=== PATIENT | female | born 1950 | race Two or more races ===

== ENCOUNTER 2024-05-21 10:12 | Outpatient (AMB) | payer MEDICARE, MEDICAID, SELFPAY ==
--- NOTE | 2024-05-21 10:23 | MHC.PC.OV ---
Vital Signs 05/21/24 10:30 Height 5 ft 4.57 in Weight 158 lb 8 oz BMI 26.7 BP 116/62 Blood Pressure Location Lt brachial Position Sitting Pulse 65 Pulse Source Pulse Oximeter Pulse Oximetry (%) 99 Oxygen Delivery Method Room Air Intake Visit Reasons: establish care Hand Box Coverer Required: No Accompanied by: Self / Same As Patient Allergies No Known Allergies Allergy (Verified 05/21/24 10:49) Medication List - Last Reconciled 05/21/24 by Alejo Singh MD amlodipine 5 mg PO DAILY amoxicillin 2,000 mg PO ONCE chlorhexidine gluconate 0.12% 15 mL PO BID cholecalciferol (vitamin D3) 1,250 mcg PO QWEEK clobetasol 0.05% 1 appl topical DAILY cyanocobalamin (vitamin B-12) 1,000 mcg PO DAILY diclofenac sodium 1% 2 grams topical BID PRN duloxetine 60 mg PO DAILY estradiol 10 mcg vaginal 2XW hydrochlorothiazide 50 mg PO DAILY ibuprofen 800 mg PO TID PRN ketoconazole 2% 1 appl topical 3XW linaclotide (Linzess) 145 mcg PO QAM methocarbamol 500 mg PO DAILY PRN olmesartan 20 mg PO DAILY potassium chloride ER 20 mEq PO DAILY progesterone micronized 200 mg PO BEDTIME rosuvastatin 20 mg PO BEDTIME trazodone 100 mg PO BEDTIME PRN Tobacco use date assessed: 05/21/24 Fall risk assessment: No Falls in past year Last assessed Fall Risk: 05/21/24 Dental Screening Dental Screen Date: 05/21/24 Did you have a dental visit in the last 12 months?: Yes Did you have a dental problem in the last 6 months where you did not have access to dental care?: No Was dental information given to patient?: Patient has dentist HPI establish care HPI Details Patient comes in today to establish care - is a new patient to the practice Patient states that she moved here to [facility] from [place] about 3 months ago States that she feels okay She denies any headaches or dizziness Denies any chest pains, no SOB No nausea/vomiting, no abdominal pain No change in bowel habits noted She is currently requesting for some specialty referrals for her health issues States that she has been seeing cardiology once a year when she was in [place] and would like to start seeing one here locally - thinks that she has a heart murmur She also reports (+) Hx of thyroid nodules and wants to follow up with a thyroid specialist here regularly Recalls being advised that she has some benign brain tumors that needs continuing surveillance Thinks she also needs to see neurology due to having CVA twice in the past few years - states that her symptoms were mostly eye manifestations (?) and she does not have any residual neurologic deficits [facility] Medical History (Updated 05/21/24 @ 12:50 by Alejo Singh MD) Lumbar degenerative disc disease Overweight (BMI 25.0-29.9) Cardiac murmur Vitamin D deficiency Osteoarthritis Insomnia Constipation Multinodular thyroid Pure hypercholesterolemia Essential hypertension Surgical History (Updated 05/21/24 @ 11:01 by Alejo Singh MD) History of carpal tunnel release of both wrists History of arthroplasty of right shoulder Hx of total knee replacement Family History (Updated 05/21/24 @ 10:38 by KACI Rodriguez) Other Heart disease Hypertension Skin cancer Social History Housing: Other (living in sisters house currently ) Patient Tobacco Use Status: Former Tobacco user e-Cigarette/Vaping Use: Never Used service: No Current occupational status: retired Current occupational exposures/hazards: No Cognitive needs: No Hearing needs: No Vision needs: No Questionnaire PHQ-9 Over the last 2 weeks, how often have you been bothered by any of the following problems? 1. Little interest or pleasure in doing things: not at all 2. Feeling down, depressed, or hopeless: not at all 3. Trouble falling or staying asleep, or sleeping too much: not at all 4. Feeling tired or having little energy: not at all 5. Poor appetite or overeating: not at all 6. Feeling bad about yourself - or that you are a failure or have let yourself or your family down: not at all 7. Trouble concentrating on things, such as reading the newspaper or watching television: not at all 8. Moving or speaking so slowly that other people could have noticed. Or the opposite - being so fidgety or restless that you have been moving around a lot more than usual: not at all 9. Thoughts that you would be better off or of hurting yourself in some way: not at all Total score: 0 Depression Screening Interpretation: Negative Depression Screening Done: Yes 31951 - PHQ-9 Billing: Yes Source: Developed by Drs. Javier Hinkle, Elyssa Mahoney, Charles Panchal and colleagues, with an educational angelica from [employer]. Thrive Questionnaire Date Thrive assessed: 05/21/24 I am a: Patient What is your living situation today?: I have a steady place to live Within the past 12 months, did the food you bought not last and you didn't have the money to get more?: Never true Within the past 12 months, did you worry whether your food would run out before you got money to buy more?: Never true Do you have trouble paying for medicines?: No Do you have trouble getting transportation to medical appointments?: No Do you have trouble paying your heating and electricity bill?: No Do you have trouble taking care of your child, family member or friend?: No Do you have trouble with day-to-day activities such as bathing, preparing meals, shopping, managing finances, etc.?: No Are you currently unemployed and looking for a job?: No Are you interested in more education?: No Please select the resources that you would like help with: None Currently or been in a relationship where the following occur: No concerns reported THRIVE Score: 0 AUDIT C Alcohol Use Questionnaire (AUDIT-C) 1. How often do you have a drink containing alcohol?: Never 3. How often do you have six or more drinks on one occasion?: Never Total Score: 0 Score Reviewed/Action Taken: Yes JAMES-7 AMB Questionnaire JAMES-7 Date JAMES - 7 assessed: 05/21/24 Feeling nervous, anxious, or on edge: 0 = Not at all Not being able to stop or control worryin = Not at all Worrying too much about different things: 0 = Not at all Trouble relaxin = Not at all Being so restless that it is hard to sit still: 0 = Not at all Becoming easily annoyed or irritable: 0 = Not at all Feeling afraid as if something awful might happen: 0 = Not at all Total JAMES-7 score (0-4 normal; 5-9 mild; 10-14 moderate; 15-21 severe): 0 Source: Developed by Scott Melloet B.W. Denzel, Charles Panchal and colleagues, with an educational angelica from [employer]. Review of Systems Const Denies chills, Denies fatigue, Denies fever(s) and Denies headache(s) Eyes Denies change in vision ENT Denies dysphagia, Denies dizziness, Denies otalgia, Denies headache(s), Denies neck pain, Denies odynophagia and Denies sore throat Card Denies chest pain, Denies palpitations and Denies dyspnea Resp Denies chest congestion, Denies cough and Denies dyspnea GI Denies abdominal pain, Denies constipation, Denies dysphagia, Denies heartburn, Denies diarrhea, Denies nausea, Denies odynophagia and Denies vomiting Denies difficulty voiding, Denies nocturia, Denies dysuria and Denies urinary urgency Musc Reports back pain (on and off) and Denies neck pain Skin/Breast Denies rash Neuro Denies dizziness and Denies headache(s) Endo Denies fatigue and Denies palpitations Physical exam (Primary Care) Vital Signs: Last Vital Signs Pulse 65 05/21/24 10:30 BP 116/62 05/21/24 10:30 Pulse Ox 99 05/21/24 10:30 Oxygen Delivery Method Room Air 05/21/24 10:30 BMI result Body Mass Index 26.7 Tobacco/Smoking Status: Tobacco use Status Tobacco use date assessed 05/21/24 05/21/24 10:24 Patient Tobacco Use Status Former Tobacco user 05/21/24 10:41 e-Cigarette/Vaping Use Never Used 05/21/24 10:41 PHQ-9: PHQ-9 Score PHQ-9: Total score 0 05/21/24 10:41 Depression Screening Interpretation: Negative Thrive Assessment: Date of Thrive Assessment Date Thrive assessed 05/21/24 05/21/24 10:24 Currently or been in a relationship where the following occur: No concerns reported Const General: no acute distress and alert HENMT Ears: TM's normal bilaterally and EAC's normal Throat: Yes posterior oropharynx normal and Yes tonsils normal (no TP congestion) Neck Neck: Yes supple and No lymphadenopathy Thyroid: Thyroid normal Resp Auscultation: clear to auscultation bilaterally, no rales and no wheezes Cardio Rate: regular rate Rhythm: regular rhythm Heart sounds: Murmur heart sound present systolic II/ GI Palpation (GI): Soft to palpation and nontender Auscultation: normal bowel sounds General: Yes no CVA tenderness Back/Spine/Pelvis Back: no CVA tenderness Thoracic/Lumbar Spine: lumbar spinal tenderness Skin Rashes: no rashes Extrem General: Yes no clubbing, cyanosis or edema Coding Level of Care Code New Pt Level 4 (99185) Diagnoses Essential hypertension I10 Pure hypercholesterolemia E78.00 Cardiac murmur R01.1 Multinodular thyroid E04.2 Primary osteoarthritis involving multiple joints M15.0 Osteoarthritis location: multiple joints Osteoarthritis type: primary Degeneration of intervertebral disc of lumbar region with discogenic back pain M51.360 Disc-related pain type: discogenic back pain only History of CVA (cerebrovascular accident) Z86.73 History of benign brain tumor Z86.011 Constipation, unspecified constipation type K59.00 Constipation type: unspecified constipation type Vitamin D deficiency E55.9 Insomnia, unspecified type G47.00 Insomnia type: unspecified Overweight (BMI 25.0-29.9) E66.3 Additional Codes PHQ-9 - 27645 - PHQ-9 Billing: Yes ([id number]) Time Spent (min) 35 Assessment & Plan Assessment & Plan (1) Essential hypertension: Code(s): I10 - Essential (primary) hypertension Category: Medical Plan: Reinforced low sodium diet - goal is systolic BP of 120 mm or less Continue Olmesartan 20 mg QD, HCTZ 50 mg QD and Amlodipine 5 mg QD Patient is reminded to continue monitoring her blood pressure regularly (2) Pure hypercholesterolemia: Code(s): E78.00 - Pure hypercholesterolemia, unspecified Category: Medical Plan: Reinforced low cholesterol diet Continue Rosuvastatin 20 mg Q HS Will have patient recheck her labs and fasting lipids in 3 months for follow up (3) Cardiac murmur: Comment: systolic Code(s): R01.1 - Cardiac murmur, unspecified Category: Medical Plan: Will send patient for echocardiogram for further evaluation (4) Multinodular thyroid: Code(s): E04.2 - Nontoxic multinodular goiter Category: Medical Plan: Patient reports (+) Hx of thyroid nodules and was going for yearly surveillance testing when she was residing in [place] Will send her for thyroid US for further evaluation Will refer her to endocrinology, per her request, for continuing surveillance and management of her thyroid nodules (5) Osteoarthritis: Code(s): M19.90 - Unspecified osteoarthritis, unspecified site Category: Medical Qualifiers: Osteoarthritis location: multiple joints Osteoarthritis type: primary Qualified Code(s): M15.0 - Primary generalized (osteo)arthritis Plan: Involving multiple joints She is S/P total bilateral TKA as well as total arthroplasty of the right shoulder Continue Ibuprofen 800 mg TID PRN with food and Diclofenac 1% topical gel BID PRN She has not yet seen orthopedics here locally - will refer to orthopedics when needed (6) Lumbar degenerative disc disease: Code(s): M51.369 - Other intervertebral disc degeneration, lumbar region without mention of lumbar back pain or lower extremity pain Category: Medical Qualifiers: Disc-related pain type: discogenic back pain only Qualified Code(s): M51.360 - Other intervertebral disc degeneration, lumbar region with discogenic back pain only Plan: Reinforced activity and weight-lifting restrictions Continue Duloxetine 60 mg QD and Methocarbamol 500 mg QD PRN (7) History of CVA (cerebrovascular accident): Code(s): Z86.73 - Personal history of transient ischemic attack (TIA), and cerebral infarction without residual deficits Category: Medical Plan: Patient reports (+) recent CVA (twice), with mostly eye manifestations (?) with no residual neurologic or motor deficits Per request, will refer her to neurology for further evaluation and management (8) History of benign brain tumor: Code(s): Z86.011 - Personal history of benign neoplasm of the brain Category: Medical Plan: Will send her for head CT for further evaluation (9) Constipation: Code(s): K59.00 - Constipation, unspecified Category: Medical Qualifiers: Constipation type: unspecified constipation type Qualified Code(s): K59.00 - Constipation, unspecified Plan: Patient is encouraged on increased oral fluids and dietary fiber Continue Linzess 145 mcg Q AM (10) Vitamin D deficiency: Code(s): E55.9 - Vitamin D deficiency, unspecified Category: Medical Plan: Continue Vitamin D3 1250 mcg once a week (11) Insomnia: Code(s): G47.00 - Insomnia, unspecified Category: Medical Qualifiers: Insomnia type: unspecified Qualified Code(s): G47.00 - Insomnia, unspecified Plan: Sleep hygiene reinforced Continue Trazodone 100 mg Q HS PRN (12) Overweight (BMI 25.0-29.9): Code(s): E66.3 - Overweight Category: Medical Plan: Reinforced diet/exercise as tolerated/lose weight Plan Follow up in 3 months Orders: Orders Comprehensive [place]. Panel Fast 3 Months E78.00 - Pure hypercholesterolemia, unspecified TSH reflex Free T4 3 Months E78.00 - Pure hypercholesterolemia, unspecified UA CC w/rflx Micro + Cult 3 Months R30.0 - Dysuria Vitamin B12 and Folate 3 Months E53.8 - Deficiency of other specified B group vitamins CA echo transthoracic complete Today R01.1 - Cardiac murmur, unspecified Comprehensive Met. Panel Today I10 - Essential (primary) hypertension Complete Blood Count Auto Diff 3 Months D64.9 - Anemia, unspecified Lipid Panel 3 Months E78.00 - Pure hypercholesterolemia, unspecified Vitamin D 25-OH Total 3 Months E55.9 - Vitamin D deficiency, unspecified CT head/brain w IV con Today Z86.011 - Personal history of benign neoplasm of the brain, Z86.73 - Personal history of transient ischemic attack (TIA), and cerebral infarction without residual deficits Referrals Endocrinology Referral E04.2 - Nontoxic multinodular goiter Neurology Referral Z86.011 - Personal history of benign neoplasm of the brain, Z86.73 - Personal history of transient ischemic attack (TIA), and cerebral infarction without residual deficits
[2024-05-21 10:30] VITALS: BP 116/62; PULSE 65; O2SAT 99; BMI 26.7
--- OUTSIDE RECORDS SUMMARY | 2024-05-21 11:57 | XMS_ITS | Patient Health Record ---
Author Organization [facility] Address [address] [address] [place] [address] Care Team Providers Care Bladder Blower Name Role Phone Devon Millard MD Primary Care Provider Unavail able MARCELLA HWANG Unavailable [phone] [place] Gaitan MD Unavailable Unavailab le Allergies No Known Allergies Reason For Referral No Information Social History Tobacco Use: Social History Observation Description Date Details (start date - stop date) Former Smoker NA - NA Tobacco Use/Smoking Question Answer Notes Are you a: former smoker Problems Problem Type SNOMED Code ICD Code Onset Dates Problem Status W/U Status Risk Notes Problem Aneurysm (43675391) Aneurysm (I72.9) Active confirmed Problem Acquired aneurysm of cerebral artery (901016671) Acquired aneurysm of cerebral artery (I67.1) Active confirmed Plan Of Treatment Pending Test Test Name Order Date MRA : Head without contrast 05/18/2023 Insurance Providers Payer Name Payer Address Payer Phone Subscriber Number Group Number Insured Name Patient Relationship to Insured Coverage Start Date Coverage End Date Medicare [employer] [address] [address] [place] [address] [phone] [id number] Gavin Nidia Self - patient is the insured Medical (General) History Medical History History ICD Code Brain Aneurysm Fibromyalgia Hypertension I10 Stroke Surgical History Surgery Date(Month/Year) knee surgery Carpal tunnel
--- OUTSIDE RECORDS SUMMARY | 2024-05-21 11:57 | XMS_ITS | Patient Health Record ---
Author Organization [facility] Address [address] [address] Care Team Providers Care Diagnostic Sales Specialist Name Role Phone Devon Millard MD Primary Care Provider Unavail able Nick Neal Unavailable [phone] TROY MILLARD MD Unavailable Unavailable Delmi Potter Unavailable [phone] Allergies No Known Allergies Results Component Value Reference Range Notes Gastrointestinal (Not yet re viewed by provider) Interpretation: Performing Lab: Notes/Report: Referring Physician : , Location : [facility] : [address] [address], [address], [place], [place], [address] A :Colon, Colon, Rectosigmoid, X3 Diagnosis Summary :- No tissue present on the Taylor slide.- Tissue did not survive the processing.- see comment The paraffin block has been examined and shows no evidence of tissue. MicroScopic Description: B :Colon, Rectum Diagnosis Summary :- Hyperplastic polyp MicroScopic Description: Clinical History: Screening Site ID:A Gross Description:Received in formalin and labeled Colon, Rectosigmoid, X3 is a abad-pink irregularly-shaped soft tissue fragment which measures 0.1 cm. The fragment is minute. Entire specimen submitted in 1 cassette(s). Site ID:B Gross Description:Received in formalin and labeled Rectum is a abad- pink irregularly-shaped soft tissue fragment which measures 0.3 cm. The fragment is bisected. Entire specimen submitted in 1 cassette(s). 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 Nick Neal Referred Organization [facility] [place] Referred Provider Nick Neal Referred Address [address] [facility],[place],[address], General Notes Bob Galan 08/15 07:48:34 AM >[facility] Dr. Nick Neal , [address] [place] [address], , [place] [address], , , Devon Millard 08/20/2023 01:16:54 PM >.Okay to proceed with referral, thank you., Bob Galan 08/22/2023 11:25:54 AM >auth pending, care plus form and notes faxed to [phone] for approval., Davina Jimenez 08/22/2023 12:01:15 PM >Approved, please process referral. Thank you., Bob Galan 08/22/2023 01:48:39 PM >Per careplus portal auth request received., Bob Galan 08/23/2023 10:35:16 AM >Patient notified request for colononscopy on 08/27 has been approved, referral/auth faxed to spec Dr. Mikal Neal, faxed via [facility]/manually to [phone]. Clinical Notes Bob Galan 08/21 11:26:15 AM >req from spec for colonoscopy on 08/28/23, pcp approved, please advise. Referral Priority Routine Referral Appointment Date 08/28/2023 Reason CSP Diagnosis 1 `SCREENING, COLON CA NCER (Z12.11) Referring Provider First Name Devon Referring Provider Last Name [place] Referring Provider Speciality Internal edicine Referred Organization [facility] [place] Referred Provider Nick Neal Referred Address [address],[place], [place],[id number] Referred Provider Specialty Gastroentero logy Procedure 1 COLONOSCOPY FLEXIBLE , PROXIMAL TO SPLENIC FLEXURE,WITH BIOPSY, SINGLE OR MULTIPLE (49104) Referral Priority Routine Reason Req from spec, F/U o n 11/16/23 w/Dr. Nick Neal , CC marked urgent for time only Referred Organization [facility] Referred Provider Nick Neal Referred Address [address] [facility],[place],[address],[place] General Notes Devon Millard 03:09:04 PM >.Okay to proceed with referral, thank you., Bob Galan 11/14/2023 06:58:56 PM >req from spec, pcp approved, sent to cm for review., Emili Cameron 11/15/2023 09:41:44 AM >Approved x 1 to [facility] preferred Specialist/Imaging Facility, please process. Thank you., Emili Ross Lpn, Speech Communication Instructor, Bob Galan 11/15/2023 11:27:44 AM >referral/auth faxed to spec Dr. Nick Roman appt 11/16/23, faxed manually to [phone]. Clinical Notes Emili Cameron 03/2023 09:41:40 AM >+++++PLEASE FAX CONSULT NOTES TO PCP OFFICE AFTER PATIENTS VISIT. THANK YOU.+++++, FAX #: [phone]. Referral Priority Urgent Referral Appointment Date 11/16/2023 Reason 1 FU Referring Provider First Name Devon Referring Provider Last Name [place] Referring Provider Speciality Internal edicine Referred Organization [facility] Referred Provider Nick Neal Referred Address [address] [facility] [place],[address],[place] Referral Priority Routine Medications Medication SIG (Take, Route, Frequency, Duration) Notes Start Date End Date Status Olmesartan Medoxomil-HCTZ 40-12.5 MG 1 tablet Orally Once a day Active PEG-3350/Electrolytes 236 GM ML as direc jenn Orally Day before the procedure for 1 days 07/31/2023 Not-Taking amLODIPine Besylate 10 MG 1 tablet Orall y Once a day Active Rosuvastatin Calcium 20 MG 1 tablet Oral ly Once a day Active hydroCHLOROthiazide 25 MG 1 tablet in th e morning Orally Once a day Active Aspirin 81 81 MG 1 tablet Orally Once a day Active Social History Tobacco Use: Social History Observation Description Date Details (start date - stop date) Never Smoker NA - NA Alcohol Screen (Audit-C) Question Answer Notes Did you have a drink containing alcohol in the p ast year? No Points 0 Interpretation Negative Tobacco Control (Standard) Question Answer Notes Tobacco use: Nonsmoker Problems Problem Type SNOMED Code ICD Code Onset Dates Problem Status W/U Status Risk Notes Problem Diverticular disease of colon (089167472) Diverticulosis large intestine w/o perforation or abscess w/o bleeding (K57.30) Active confirmed Problem Adenomatous polyp of rectum (5021874055902) Adenomatous polyp of rectum (D12.8) Active confirmed Problem Benign neoplasm of colon (46862227) Colon adenoma (D12.6) Active confirmed Problem History of polyp of colon (524117995) 1. Personal history of colon polyps (Z86.010) Active confirmed Vital Signs Blood pressure diastolic 88 mm Hg 11/16/2023 Weight-kg 75.3 kg 11/16/2023 Height 66 in 11/16/2023 Blood pressure systolic 157 mm Hg 11/16/2023 Weight 166 lbs 11/16/2023 BMI 26.79 kg/m2 11/16/2023 Encounters Encounter Location Date Provider Diagnosis [facility] [place] [address] [place] [address]. [place] [address] 06/23/2023 Delmi Potter `SCREENING, COLON CANCER Z12.11 and 1. Personal history of colon polyps Z86.010 [facility] [address] [place], [place] [id number] 08/28/2023 Nick Neal Encounter for screening for malignant neoplasm of colon Z12.11 ; Rectal polyp K62.1 and Diverticulosis of large intestine without perforation or abscess without bleeding K57.30 [facility] [address] [address] 11/16/2023 Delmi Abbey Adenomatous polyp of rectum D12.8 ; Colon adenoma D12.6 and Diverticulosis large intestine w/o perforation or abscess w/o bleeding K57.30 [facility] [place] [address] [place] [address] 07/03/2023 Romeroparviz Neal [facility] [place] [address] [place] [address] 07/12/2023 Romerojose eduardo Neal [facility] [place] [address] [place] [address] 07/31/2023 Nick Neal Assessments Encounter Date Diagnosis (ICD Code) Assessment Notes Treatment Notes Treatment Clinical Notes Section Notes 06/23/2023 `SCREENING, COLON CANCER (ICD-10 - Z12.11) 06/23/2023 1. Personal history of colon polyps (ICD-10 - Z86.010) 08/28/2023 Rectal polyp (ICD-10 - K62.1) 08/28/2023 Encounter for screening for malignant neoplasm of colon (ICD-10 - Z12.11) 11/16/2023 Adenomatous polyp of rectum (ICD-10 - D12.8) repeat CSP in 5 year 11/16/2023 Colon adenoma (ICD-10 - D12.6) repeat csp in 5 years 11/16/2023 Diverticulosis large intestine w/o perforation or abscess w/o bleeding (ICD-10 - K57.30) Diverticulosis: These are small pockets that develop over time within the colon, sometimes they become plugged leading to difficulty with bowel function. Taking a high-fiber diet such as salads on a daily basis, helps cleanse the little pockets and improves Bowel function. - Increase fiber in your diet. Total fiber intake for women is 20-25g, for men 25-30g daily. Soluble fiber is better tolerated. * Dietary fiber includes adding: -Use berries, prunes, oranges or apricots in your diet for dessert and snacks. - Eat fruits and veggies with their peels: apples, pears, peaches, squash - Add cooked or canned beans, lentils, split peas to your favorite dish - Choose whole grained breakfast cereal or whole/steel oatmeal. - Make sure your whole grain products have whole grain listed as the number 1 or 2 ingredient. * ADD a fiber supplement: - Take a fiber supplement such as psyllium (Metamucil), Citrucel (more well tolerated and causes less bloating) daily. I recommend starting with 1 to 2 tsp in 8 oz of water once a day, then increasing to twice a day, and/or increasing to 1 to 2 tablespoons. By starting low and increasing dose/frequency slowly, this will help decrease possible side effects of gas and bloating. Make sure to drink adequate fluids. * IF YOU ARE HAVING UPPER OR LOWER LEFT QUADRANT PAIN, NOT RELIEVED BY BOWEL MOVEMENT, STOP YOUR DIETARY FIBER AND CALL YOUR PRIMARY PROVIDER OR GI CLINIC 08/28/2023 Diverticulosis of large intestine without perforation or abscess without bleeding (ICD-10 - K57.30) 06/23/2023 Other Patient is a 72 year old female referred for screening colonoscopy. The options, alternatives, risks and benefits were discussed with the patient in detail. Patient verbalized understanding of our discussion and wished to proceed. An opportunity was provided to the patient to ask questions that were answered. Plan Of Treatment Pending Test Test Name Order Date Gastrointestinal 08/28/2023 Future Test Test Name Order Date Colonoscopy 06/30/2023 Cardiac Clearance 06/30/2023 Insurance Providers Payer Name Payer Address Payer Phone Subscriber Number Group Number Insured Name Patient Relationship to Insured Coverage Start Date Coverage End Date [employer] [address] [address] [place], [place] [id number] CUETOYOMAIRAS Self - patient is the insured Medical (General) History Medical History History ICD Code High Blood Pressure High Cholesterol Implantable loop recorder Stroke Brain Aneurysm Surgical History Surgery Date(Month/Year) Shoulder replacement (Left) Knee Replacement
--- OUTSIDE RECORDS SUMMARY | 2024-05-21 11:57 | XMS_ITS | Clinical Summary ---
Author Organization [facility] Address [address] [place] [address] Phone Care Team Providers Care Coroner Forensic Technician Name Role Phone Daylin Manuel Primary Care Provider [phone] Encounters Date Type Department Care Team Description 04/09/2024 Telephone [place] [address] [place] [address] Daylin Manuel PA Referral (Received routine paper referral - April) from Last 3 Months Social History Tobacco Use Types Packs/Day Years Used Date Smoking Tobacco: Never Assessed Comments Unknown Sex and Gender Information Value Date Recorded Sex Assigned at Not on file Legal Sex Female 3:28 PM EST Gender Identity Not on file Sexual Orientation Not on file Plan of Treatment Health Maintenance Due Date Last Done Comments Breast Cancer Screening 1950 DTaP,Tdap,and Td Vaccines (1 - Tdap) 08/27/1971 Pneumococcal Vaccine: 50+ Ye ars (1 of 1 - PCV) 2002 Zoster Vaccines (1 of 2) 2002 RSV Immunization Adult Eliseo nts (1 - Risk 60-74 years 1-dose series) 2012 COVID-19 Vaccine (1 - 2023-2 5 season) 2023 Influenza Vaccine (#1) 2023 Colorectal Cancer Screening: Colonoscopy 04/10/2024 Depression Screening 04/10/2024 Falls Risk Assessment 04/10/2024 Hepatitis C Screening 04/10/2024 Medicare Annual Wellness Visit 04/10/2024 Osteoporosis Screening (Bone Density Screening) 04/10/2024 Social Influencers of Health Screening 04/10/2024 HIB Vaccines Aged Out No longer eligi ble based on patient's age to complete this topic HPV Vaccines Aged Out No longer eligi ble based on patient's age to complete this topic Hepatitis A Vaccines Aged Out No long er eligible based on patient's age to complete this topic Hepatitis B Vaccines Aged Out No long er eligible based on patient's age to complete this topic IPV Vaccines Aged Out No longer eligi ble based on patient's age to complete this topic MMR Vaccines Aged Out No longer eligi ble based on patient's age to complete this topic Meningococcal ACWY Vaccine Aged Out N o longer eligible based on patient's age to complete this topic Meningococcal B Vaccine Aged Out No l onger eligible based on patient's age to complete this topic RSV Immunization Patients Un mo 20 months Aged Out No longer eligible b ased on patient's age to complete this topic Varicella Vaccines Aged Out No longer eligible based on patient's age to complete this topic Insurance MEDICA[place] - [place] MEDICARE Care Teams Coroner Forensic Technician Relationship Specialty Start Date End Date Daylin Manuel PA [address] [place] [address] PCP - General 04/09/24
--- OUTSIDE RECORDS SUMMARY | 2024-05-21 11:57 | XMS_ITS | Clinical Summary ---
Author Organization [facility] Address [address] [place] [address] Care Team Providers Care Architecture Professor Name Role Phone Daylin Manuel PA-C Primary Care Provider [phone] Source Comments PLEASE NOTE, if this patient is a minor, it may be UNLAWFUL to discuss sensitive information that is contained in these records (such as FAMILY PLANNING, MENTAL HEALTH or SUBSTANCE ABUSE) with the minor patient's parent or other person without the patient's specific authorization.[facility] Allergies No known active allergies Medications aspirin [address] tablet aspirin 81 mg tablet,delayed release TAKE ONE TABLET BY MOUTH ONCE DAILY Active ciprofloxacin (CILOXAN) 0.3 % ophthalmic solution 04/07/19 24 Active diclofenac sodium (VOLTAREN) 1 % gel Place onto the skin twice a day 04/18/19 24 Active estradioL 10 mcg tab APPLY PER VAGINA DAILY FOR 2 WEEKS THEN 2 TIMES A WEEK. Active ibuprofen 800 mg tablet Take 800 mg by mouth 3 (three) times daily as needed Active ketoconazole (NIZORAL) 2 % shampoo APPLY TO SCALP LEAVE IN FOR 5 TO 10 MINS THEN RINSE THOROUGHLY . REPEAT 2 TIMES A WEEK FOR 3 MONTHS Active omeprazole (PRILOSEC) [address] capsule Take 20 mg by mouth Daily Active potassium chloride 20 mEq ER tablet Take 20 mEq by mouth daily 12/06/19 24 Active progesterone micronized (PROMETRIUM) 200 mg capsule Take 200 mg by mouth nightly at bedtime Active traZODone (DESYREL) 100 mg tablet TAKE 1/2 TABLET BY MOUTH AT BEDTIME FOR 2 WEEKS THEN TAPER TO 1 TABLET BY MOUTH AT BEDTIME 02/12/20 24 Active LINZESS 145 mcg cap Take 145 mcg by mouth daily Active dextran 70-hypromellose (TEARS RENEWED) ophthalmic solutionIndication s:Subconjunctival hemorrhage of left eye Place 1 Drop into both eyes as needed for dry eyes 15 mL 1 04/08/19 25 Active amoxicillin (AMOXIL) 500 mg capsuleIndications :Need for prophylactic antibiotic Take four ($) capsules by mouth one (1) hour before dental appointment. 4 Capsule 04/18/19 25 Active chlorhexidine (PERIDEX) 0.12 % solutionIndication s:Stage 2 grade A generalized periodontitis per AAP/EFP 2017 classification Swish and spit 15 mL 2 (two) times daily 473 mL 04/18/19 25 Active estradioL [address] 10 mcg vaginally 2 times a week (This is one tablet) 24 Tablet 4 04/23/19 25 026 Active cholecalciferol, vitamin D3, (VITAMIN D3) 1,250 mcg (50,000 unit) capsule Take 1 Capsule by mouth once a week 4 Capsule 1 05/01/19 25 Active cyanocobalamin (VITAMIN B-12) 1,000 mcg tablet Take 1 Tablet by mouth daily 90 Tablet 1 05/01/19 25 Active diclofenac sodium (VOLTAREN) 1 % gel Apply topically 2 (two) times daily 100 g 2 05/01/19 25 Active rosuvastatin (CRESTOR) 20 mg tablet Take 1 Tablet by mouth nightly at bedtime 90 Tablet 1 05/01/19 25 Active cholecalciferol, vitamin D3, (VITAMIN D3) 1,250 mcg (50,000 unit) capsule Take 1.25 mg by mouth once a week 025 Discontin ued(Reord er (E-Cancel Not Sent)) cyanocobalamin (VITAMIN B-12) 1,000 mcg tablet Take 1,000 mcg by mouth daily 025 Discontin ued(Reord er (E-Cancel Not Sent)) rosuvastatin (CRESTOR) 20 mg tablet TAKE 1 TABLET BY MOUTH Monday AND Monday 025 Discontin ued(Cance lled) Active Problems Problem Noted Date Diagnosed Date H/O complete eye exam 04/17/2024 Overview (04/17/2024): 04/16/2024 - [facility] - Ophthalmology - Imp/Plan: 1) Subconjunctival Hemorrhage OD - nearly resolved - self limiting dx 2) Keratoconjunctivitis Sicca OU- condition = active/monitoring use Maxitrol 1 drop four times daily in both eyes x 2 weeks then stop and start artificial tears four times daily in both eyes f/u 2-3 months 3) Hyperopia OU - repeat refraction at f/u 5) PCIOL - stable 6) Headache - no ocular etiology Subconjunctival hematoma, left 04/08/2024 Cardiac murmur 04/08/2024 Overview (04/08/2024): Transesophageal echo complete with doppler and color flow - Jony Hernandez DO - study date 04/11/2022 - Conclusion: Normal left ventricular cavity size; The visually estimated ejection fraction is between 55-59% TTE- Jony Hernandez DO - study date 11/22/2021 - Conclusion: Visually estimated EF 55-60%; Mild concentric left ventricular hypertrophy; Abnormal diastolic function is noted; Evidence suggests Grade! Mild diastolic dysfunction; Normal right ventricular cavity size; mild mitral valve regurgitation; mild pulmonic valve regurgitation Stress Test - Jony Hernandez DO - study date 11/22/2021 - Conclusion: The post stress calculated left ventricular EF is 76%, which is within normal limits; Normal myocardial SPECT perfusion with no scintigraphic evidence of pharmacological induced ischemia; TID ratio is 0.89; clinical correlation recommended. - Normal resting ECG - Normal stress ECG without evidence of ischemia at peak pharmacological effect - No symptoms noted with stress - Negative pharmacological stress test by ECG criteria - Normal blood pressure response during stress - normal heart rate response during stress [facility] Primary Machinist Apprentice Wood: Jony Hernandez DO, PhD, [facility] - 01/06/24 ASSESSMENT AND PLAN 1. History of loop recorder (Primary) Overview: 04/11/2022- [employer] 01/03/2024 Explant 2. Amaurosis fugax 3. Primary hypertension (CMS/HCC) 4. LVH (left ventricular hypertrophy) 5. Nonrheumatic mitral valve regurgitation 6. Nonrheumatic pulmonary valve insufficiency 7. Transient cerebral ischemia, unspecified type 1) We recommend continuing medical management and aggressive control of all cardiovascular risk factors by medical therapy, diet, and exercise. 2) We recommend a heart healthy Mediterranean Diet and a limited salt intake. 3) The patient's current medication list was reviewed with the patient, and they voice an understanding of their current medications. The patient, family member and/or caregiver were educated about the proper use of the current medications and were educated on the possible side effects of the current medications. Nuclear perfusion stress test showed no significant reversible perfusion defects. I advised her to track and record her blood pressure twice daily and bring log to next visit Transesophageal echocardiography showed no intracardiac source of emboli. She is now status post loop recorder implant. Device check from 11/21/2023 showed no new episodes. Total PVC burden 3.3%. Patient is requesting loop recorder explant. 2D echo Doppler from 10/06/2023 personally reviewed by me and showed normal LVEF of 65 to 69% with mild concentric left ventricular hypertrophy with no hemodynamically significant valvular abnormalities. She is now status post loop recorder explant. Site is clean dry and intact. Left ventricular hypertrophy 04/08/2024 Overview (04/08/2024): [facility] Primary Machinist Apprentice Wood: Jony Hernandez DO, PhD, [facility] - 01/06/24 ASSESSMENT AND PLAN 1. History of loop recorder (Primary) Overview: 04/11/2022- [employer] 01/03/2024 Explant 2. Amaurosis fugax 3. Primary hypertension (CMS/HCC) 4. LVH (left ventricular hypertrophy) 5. Nonrheumatic mitral valve regurgitation 6. Nonrheumatic pulmonary valve insufficiency 7. Transient cerebral ischemia, unspecified type 1) We recommend continuing medical management and aggressive control of all cardiovascular risk factors by medical therapy, diet, and exercise. 2) We recommend a heart healthy Mediterranean Diet and a limited salt intake. 3) The patient's current medication list was reviewed with the patient, and they voice an understanding of their current medications. The patient, family member and/or caregiver were educated about the proper use of the current medications and were educated on the possible side effects of the current medications. Nuclear perfusion stress test showed no significant reversible perfusion defects. I advised her to track and record her blood pressure twice daily and bring log to next visit Transesophageal echocardiography showed no intracardiac source of emboli. She is now status post loop recorder implant. Device check from 11/21/2023 showed no new episodes. Total PVC burden 3.3%. Patient is requesting loop recorder explant. 2D echo Doppler from 10/06/2023 personally reviewed by me and showed normal LVEF of 65 to 69% with mild concentric left ventricular hypertrophy with no hemodynamically significant valvular abnormalities. She is now status post loop recorder explant. Site is clean dry and intact. CVA (cerebral vascular accident) (HCC-CMS) 04/08 Primary hypertension 04/08/2024 Nonrheumatic pulmonary valve insufficiency 04/08 Overview (04/08/2024): [facility] Primary Machinist Apprentice Wood: Jony Hernandez DO, PhD, [facility] - 01/06/24 ASSESSMENT AND PLAN 1. History of loop recorder (Primary) Overview: 04/11/2022- [employer] 01/03/2024 Explant 2. Amaurosis fugax 3. Primary hypertension (CMS/HCC) 4. LVH (left ventricular hypertrophy) 5. Nonrheumatic mitral valve regurgitation 6. Nonrheumatic pulmonary valve insufficiency 7. Transient cerebral ischemia, unspecified type 1) We recommend continuing medical management and aggressive control of all cardiovascular risk factors by medical therapy, diet, and exercise. 2) We recommend a heart healthy Mediterranean Diet and a limited salt intake. 3) The patient's current medication list was reviewed with the patient, and they voice an understanding of their current medications. The patient, family member and/or caregiver were educated about the proper use of the current medications and were educated on the possible side effects of the current medications. Nuclear perfusion stress test showed no significant reversible perfusion defects. I advised her to track and record her blood pressure twice daily and bring log to next visit Transesophageal echocardiography showed no intracardiac source of emboli. She is now status post loop recorder implant. Device check from 11/21/2023 showed no new episodes. Total PVC burden 3.3%. Patient is requesting loop recorder explant. 2D echo Doppler from 10/06/2023 personally reviewed by me and showed normal LVEF of 65 to 69% with mild concentric left ventricular hypertrophy with no hemodynamically significant valvular abnormalities. She is now status post loop recorder explant. Site is clean dry and intact. Nonrheumatic mitral valve regurgitation 04/08/19 Overview (04/08/2024): [facility] Primary Machinist Apprentice Wood: Jony Hernandez DO, PhD, [facility] - 01/06/24 ASSESSMENT AND PLAN 1. History of loop recorder (Primary) Overview: 04/11/2022- [employer] 01/03/2024 Explant 2. Amaurosis fugax 3. Primary hypertension (CMS/HCC) 4. LVH (left ventricular hypertrophy) 5. Nonrheumatic mitral valve regurgitation 6. Nonrheumatic pulmonary valve insufficiency 7. Transient cerebral ischemia, unspecified type 1) We recommend continuing medical management and aggressive control of all cardiovascular risk factors by medical therapy, diet, and exercise. 2) We recommend a heart healthy Mediterranean Diet and a limited salt intake. 3) The patient's current medication list was reviewed with the patient, and they voice an understanding of their current medications. The patient, family member and/or caregiver were educated about the proper use of the current medications and were educated on the possible side effects of the current medications. Nuclear perfusion stress test showed no significant reversible perfusion defects. I advised her to track and record her blood pressure twice daily and bring log to next visit Transesophageal echocardiography showed no intracardiac source of emboli. She is now status post loop recorder implant. Device check from 11/21/2023 showed no new episodes. Total PVC burden 3.3%. Patient is requesting loop recorder explant. 2D echo Doppler from 10/06/2023 personally reviewed by me and showed normal LVEF of 65 to 69% with mild concentric left ventricular hypertrophy with no hemodynamically significant valvular abnormalities. She is now status post loop recorder explant. Site is clean dry and intact. Transient cerebral ischemia 04/08/2024 Amaurosis fugax 04/08/2024 History of loop recorder 04/08/2024 Overview (04/08/2024): [facility] Primary Machinist Apprentice Wood: Jony Hernandez DO, PhD, [facility] 01/06/24 ASSESSMENT AND PLAN 1. History of loop recorder (Primary) Overview: 04/11/2022- [employer] 01/03/2024 Explant 2. Amaurosis fugax 3. Primary hypertension (CMS/HCC) 4. LVH (left ventricular hypertrophy) 5. Nonrheumatic mitral valve regurgitation 6. Nonrheumatic pulmonary valve insufficiency 7. Transient cerebral ischemia, unspecified type 1) We recommend continuing medical management and aggressive control of all cardiovascular risk factors by medical therapy, diet, and exercise. 2) We recommend a heart healthy Mediterranean Diet and a limited salt intake. 3) The patient's current medication list was reviewed with the patient, and they voice an understanding of their current medications. The patient, family member and/or caregiver were educated about the proper use of the current medications and were educated on the possible side effects of the current medications. Nuclear perfusion stress test showed no significant reversible perfusion defects. I advised her to track and record her blood pressure twice daily and bring log to next visit Transesophageal echocardiography showed no intracardiac source of emboli. She is now status post loop recorder implant. Device check from 11/21/2023 showed no new episodes. Total PVC burden 3.3%. Patient is requesting loop recorder explant. 2D echo Doppler from 10/06/2023 personally reviewed by me and showed normal LVEF of 65 to 69% with mild concentric left ventricular hypertrophy with no hemodynamically significant valvular abnormalities. She is now status post loop recorder explant. Site is clean dry and intact. Nontoxic multinodular goiter 03/27/2024 Overview (03/27/2024): 04/27/2023 - [facility] - Assessment: Nontoxic multinodular goiter - Tyroid US Impression Per office Note: - Overall thyroid gland is normal in size symmetrical with heterogenous echotexture and normal vascularity. - Multiple thyroid nodules are present - Repeat US in 1 year F/u 1 year Postmenopausal atrophic vaginitis 03/26/2024 Overview (03/26/2024): 05/31/2023 - [facility] - Note: Assessment/Plan: 1) Menopausal and female climacteric states 2) postmenopausal atrophic vaginitis. Rx: Estradiol 10 mcg - apply per vagina daily for 2 weeks then 2 times a week; Progesterone 200 mg - take 1 capsule PO QHS F/u 6 months Menopausal and female climacteric states 025 Overview (03/26/2024): 05/31/2023 - [facility] - Note: Assessment/Plan: 1) Menopausal and female climacteric states 2) postmenopausal atrophic vaginitis. Rx: Estradiol 10 mcg - apply per vagina daily for 2 weeks then 2 times a week; Progesterone 200 mg - take 1 capsule PO QHS F/u 6 months Right rotator cuff tear 03/26/2024 Overview (03/26/2024): 07/06/2023 - [facility] - Note: Assessment/Plan: - Right rotator cuff tear - history of rotator cuff repair 01/2022 - MRI 04/2023 reporting tendinosis, full-thickness rotator cuff tearing and arthritis. - Osteoarthritis of right shoulder - recommend glucosamine - heat/stretching laying down Osteoarthritis of right shoulder 03/26/2024 Overview (03/26/2024): 07/06/2023 - [facility] - Note: Assessment/Plan: - Right rotator cuff tear - history of rotator cuff repair 01/2022 - MRI 04/2023 reporting tendinosis, full-thickness rotator cuff tearing and arthritis. - Osteoarthritis of right shoulder - recommend glucosamine - heat/stretching laying down Food insecurity 03/20/2024 Financial difficulties 03/20/2024 Lack of housing 03/20/2024 Bilateral knee pain Overview (03/20/2024): s/p bilateral TKR in 2010 Chronic right shoulder pain Overview (03/21/2024): s/p reverse total shoulder arthroplasty on 10/06/2023 - [facility] GERD (gastroesophageal reflux disease) H/O: stroke Overview (04/08/2024): Loop recorder implantation - 04/11/2022 Vitamin B12 deficiency Vitamin D deficiency H/O thyroid nodule Overview (05/03/2024): 04/26/2024 - Thyroid US - Nodule #1 - ACR TI-RADS 3 - recommend US guided fine needle. Nodule #2 - ACR TI-RADS 4 - recommended f/u US in 1 year. Impression: A large nodule is identified in the isthmus. By TI-RADS criteria, recommend US guided fine- needle aspiration of this nodule. A second smaller nodule is also identified in the isthmus. 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; Vitamin D deficiency; Osteoarthritis of right shoulder, unspecified osteoarthritis type; Primary hypertension; Cerebrovascular accident (CVA), unspecified mechanism ([facility]); Lack of housing; Chronic pain of both knees; Gastroesophageal reflux disease without esophagitis; Vitamin B12 deficiency; H/O thyroid nodule; Postmenopausal atrophic vaginitis; Menopausal and female climacteric states; Tear of right rotator cuff, unspecified tear extent, unspecified whether traumatic; Nontoxic multinodular goiter; Subconjunctival hematoma, left; Cardiac murmur; Left ventricular hypertrophy; Nonrheumatic pulmonary valve insufficiency; History of loop recorder; Nonrheumatic mitral valve regurgitation; Transient cerebral ischemia, unspecified type; Hyperlipidemia, unspecified hyperlipidemia type 04/19/2024 8:40 AM EST Office Visit [id number] [place] [phone] Javier Luu MD Rodriguez, Anabel Menopausal and female climacteric states (Primary Dx) 04/17/2024 11:00 AM EST Office Visit [facility] [address] [place] [phone] Meghan Hunter Encounter for dental examination (Primary Dx); Need for prophylactic antibiotic; Stage 2 grade A generalized periodontitis per AAP/EFP 2017 classification 04/08/2024 2:00 PM EST Office Visit [address] [phone] Daylin Manuel PA-C Subconjunctival hemorrhage of left eye (Primary Dx); Cardiac murmur; Left ventricular hypertrophy; H/O: stroke; History of loop recorder; Nonrheumatic mitral valve regurgitation; Nonrheumatic pulmonary valve insufficiency; Amaurosis fugax; Transient cerebral ischemia, unspecified type; Brain aneurysm 03/21/2024 Interim Notes [address] [phone] Lena Rivera CMA 03/20/2024 10:00 AM EST Office Visit [address] [phone] Daylin Manuel PA-C Encounter to establish care (Primary Dx); Food insecurity; Financial difficulties; Lack of housing; Vitamin B12 deficiency; Vitamin D deficiency; H/O thyroid nodule from Last 3 Months Family History Medical History Relation Name Comments Cardiovascular disease Father No Known Problems Maternal Grandfather No Known Problems Maternal Grandmother Alzheimer's Disease Mother Basal cell carcinoma Mother Hypertension Mother High Cholesterol Paternal Aunt No Known Problems Paternal Grandfather No Known Problems Paternal Grandmother Relation Name Status Comments Brother Alive Daughter X4 Alive Father Maternal Grandfather Maternal Grandmother Mother Alive Paternal Aunt Paternal Grandfather Paternal Grandmother Sister 1 Alive Sister 2 Alive Social History Tobacco Use Types Packs/Day Years Used Date Smoking Tobacco: Former Cigarettes Smokeless Tobacco: Never Tobacco Cessation:Counseling Given: Not Answered Comments:Started smoking cigarettes ~ 32 years of age Quit smoking cigarettes ~ 52 years of age Alcohol Use Standard Drinks/Week Comments Yes 0 (1 standard drink = 0.6 oz pur e alcohol) socially Social Connections Answer Date Recorded Connectedness 1 03/20/2024 Financial Resource Strain Answer Date R ecorded Financial Resource Strain 2 2024 Stress Answer Date Recorded Stress 1 03/20/2024 Food Insecurity Answer Date Recorded Food 2 03/20/2024 Transportation Needs Answer Date Record ed Transportation 1 03/20/2024 Housing Stability Answer Date Recorded Housing 2 03/20/2024 Utilities Answer Date Recorded Utilities 2 03/20/2024 Comments No Sex and Gender Information Value Date Recorded Sex Assigned at Female 03/20/2024 9:45 AM PST Legal Sex Female 7:58 AM PST Gender Identity Female 03/20/2024 9:45 AM PST Sexual Orientation Straight 03/20/2024 9: 45 AM PST Last Filed Vital Signs Vital Sign Reading Time Taken Comments Blood Pressure 152/105 05/08/2024 9:41 AM EDT Pulse 65 05/08/2024 9:41 AM EDT Temperature 36.9 ??C (98.5 ??F) 04/30/2024 2:35 PM ED T Respiratory Rate 16 04/30/2024 2:35 PM EDT Oxygen Saturation 97% 04/30/2024 2:35 PM EDT Inhaled Oxygen Concentration - - Weight 70.8 kg (156 lb) 04/30/2024 2:35 PM EDT Height 170.2 cm (5' 7 ) 04/30/2024 2:35 PM EDT Body Mass Index 24.43 04/30/2024 2:35 PM EDT Plan of Treatment Upcoming Encounters Date Type Department Care Team (Late st Contact Info) Description 05/31/2024 10:20 AM EDT Office Visit [facility] [address] [place] [phone] Meghan Hunter Y [address] [place] [address] Health Maintenance Due Date Last Done Comments Dental Perio Charting 1952 Dental Prophy 1952 Imm-DTaP/Tdap/Td (1 - Tdap) 08/27/1971 Breast Cancer Screening (Mammogram) 1992 CT Colonography 1997 Colonoscopy 1997 Colorectal Cancer Screening 1997 FIT/gFOBT 1997 Fecal DNA 1997 Flexible Sigmoidoscopy 1997 Imm-Pneumococcal 65+ (1 of 1 - PCV) 2002 Imm-Zoster, Recombinant (1 of 2) 2002 Bone Density Screening 2017 Falls Prevention 2017 Pzy-NYMRL-02 (1 - season) 2023 Imm-Influenza (#1) 2023 11/23/2020 Lipid Screening 03/25/2025 03/25/2024 Dental BW 04/19/2025 04/17/2024 Dental Examination 04/19/2025 04/17/2024 Medicare Annual Wellness Visit 04/30/2025 04/30/2024 Tobacco Screening 04/30/2025 04/30/2024 Dental FMX/Pano 04/19/2029 04/17/2024 Alcohol and Drug Screen Completed 03/20/2024 Depression Annual Screen Completed 03/20/2024 Hepatitis C Screening Completed 03/25/2024 Procedures Procedure Name Priority Date/Time Associated Diagnosis Comments OFFICE VISIT OBSERVATION NO OTHER SRVC PERFORMED Routine 05/08/2024 9:40 AM EDT Encounter for dental examination HEALTH HISTORY SCANNED DOCUMENT 05/08/2024 3:00 AM EDT OTHER ORDERS SCANNED DOCUMENT 05/06/2024 3:00 AM EDT OTHER ORDERS SCANNED DOCUMENT 05/06/2024 3:00 AM EDT THYROID ULTRASOUND 04/26/2024 3: 00 AM EDT DENTAL CASE MANAGEMENT - MOTIVATIONAL INTV Routine 04/17/2024 11:00 AM EST Need for prophylactic antibiotic Encounter for dental examination Stage 2 grade A generalized periodontitis per AAP/EFP 2017 classification INTRAORAL - COMP SERIES OF RADIOGRAPHIC IMAGES Routine 04/17/2024 11:00 AM EST Encounter for dental examination Stage 2 grade A generalized periodontitis per AAP/EFP 2017 classification COMP ORAL EVALUATION - NEW/ESTABLISHED PATIENT Routine 04/17/2024 11:00 AM EST Encounter for dental examination Stage 2 grade A generalized periodontitis per AAP/EFP 2017 classification CARIES RISK ASSESSMENT & DOC FINDING HIGH RISK Routine 04/17/2024 11:00 AM EST Need for prophylactic antibiotic Encounter for dental examination Stage 2 grade A generalized periodontitis per AAP/EFP 2017 classification ORAL CANCER SCREENING Routine 04/17/2024 11:00 AM EST Need for prophylactic antibiotic Encounter for dental examination Stage 2 grade A generalized periodontitis per AAP/EFP 2017 classification CASE PRESENTATION SUBS DTL & EXTENSIVE TX PLN Routine 04/17/2024 11:00 AM EST Encounter for dental examination HEALTH HISTORY SCANNED DOCUMENT 04/17/2024 3:00 AM EST 13 PREFABRICATED POST AND CORE IN ADDITION TO CROWN Routine 04/17/2024 12:00 AM EST 10 DFL COMPOSITE - WISDOM (NON BILLABLE) Routine 04/17/2024 12:00 AM EST 18 O COMPOSITE - WISDOM (NON BILLABLE) Routine 04/17/2024 12:00 AM EST 12 DO AMALGAM - WISDOM (NON BILLABLE) Routine 04/17/2024 12:00 AM EST 4 DO AMALGAM - WISDOM (NON BILLABLE) Routine 04/17/2024 12:00 AM EST 17 CROWN - PORCELAIN FUSED PREDOMINANTLY BASE METAL Routine 04/17/2024 12:00 AM EST 15 CROWN - PORCELAIN FUSED PREDOMINANTLY BASE METAL Routine 04/17/2024 12:00 AM EST 14 CROWN - PORCELAIN FUSED PREDOMINANTLY BASE METAL Routine 04/17/2024 12:00 AM EST 13 CROWN - PORCELAIN FUSED PREDOMINANTLY BASE METAL Routine 04/17/2024 12:00 AM EST 9 CROWN - PORCELAIN FUSED PREDOMINANTLY BASE METAL Routine 04/17/2024 12:00 AM EST 8 CROWN - PORCELAIN FUSED PREDOMINANTLY BASE METAL Routine 04/17/2024 12:00 AM EST 7 CROWN - PORCELAIN FUSED PREDOMINANTLY BASE METAL Routine 04/17/2024 12:00 AM EST 13 ROOT CANAL - WISDOM (NO BILLABLE) Routine 04/17/2024 12:00 AM EST 3 CROWN - PORCELAIN FUSED PREDOMINANTLY BASE METAL Routine 04/17/2024 12:00 AM EST 1 CROWN - PORCELAIN FUSED PREDOMINANTLY BASE METAL Routine 04/17/2024 12:00 AM EST 1 ROOT CANAL - WISDOM (NO BILLABLE) Routine 04/17/2024 12:00 AM EST 17 IMPLANT - WISDOM (NON BILLABLE) Routine 04/17/2024 12:00 AM EST 31 IMPLANT - WISDOM (NON BILLABLE) Routine 04/17/2024 12:00 AM EST 30 IMPLANT - WISDOM (NON BILLABLE) Routine 04/17/2024 12:00 AM EST 29 IMPLANT - WISDOM (NON BILLABLE) Routine 04/17/2024 12:00 AM EST 8 IMPLANT - WISDOM (NON BILLABLE) Routine 04/17/2024 12:00 AM EST 9 IMPLANT - WISDOM (NON BILLABLE) Routine 04/17/2024 12:00 AM EST 15 IMPLANT - WISDOM (NON BILLABLE) Routine 04/17/2024 12:00 AM EST REFERRAL TO OPHTHALMOLOGY Urgent 04/16/2024 3:00 AM EST Subconjunctival hemorrhage of left eye IMAGING SCANNED DOCUMENT 04/11/2024 3:00 AM EST HEALTH HISTORY SCANNED DOCUMENT 03/29/2024 3:00 AM EST HEALTH HISTORY SCANNED DOCUMENT 03/26/2024 3:00 AM EST HEALTH HISTORY SCANNED DOCUMENT 03/26/2024 3:00 AM EST OTHER ORDERS SCANNED DOCUMENT 03/26/2024 3:00 AM EST VITAMIN B12 & FOLATE Routine 03/25/2024 9:10 AM EST Vitamin B12 deficiency VITAMIN D, 1,25-DIHYDROXY Routine 03/25/2024 9:10 AM EST Vitamin D deficiency HEPATITIS C AB W/RFLX HCV RNA, QT, RT PCR Routine 03/25/2024 9:10 AM EST Encounter to establish care LIPID PANEL Routine 03/25/2024 9:10 AM EST Encounter to establish care TSH W/RFLX FREE T4 Routine 03/25/2024 9: 10 AM EST Encounter to establish care H/O thyroid nodule COMPREHENSIVE METABOLIC PANEL Routine 03/25/2024 9:10 AM EST Encounter to establish care Vitamin B12 deficiency Vitamin D deficiency BLOOD COUNT COMPLETE AUTO&AUTO DIFRNTL WBC Routine 03/25/2024 9:10 AM EST Encounter to establish care HEALTH HISTORY SCANNED DOCUMENT 03/22/2024 3:00 AM EST OTHER ORDERS SCANNED DOCUMENT 03/22/2024 3:00 AM EST OTHER ORDERS SCANNED DOCUMENT 03/22/2024 3:00 AM EST HEALTH HISTORY SCANNED DOCUMENT 03/21/2024 3:00 AM EST OTHER ORDERS SCANNED DOCUMENT 03/20/2024 3:00 AM EST from Last 3 Months Results * HEALTH HISTORY SCANNED DOCUMENT (05/08/2024 3:00 AM EDT) Only the most recent of7 resultswithin the time period is included. 05/08/2024 3:00 AM EDT us [facility] Provider Default SCAN OTHER ORDERS Final Re sult * OTHER ORDERS SCANNED DOCUMENT (05/06/2024 3:00 AM EDT) Only the most recent of6 resultswithin the time period is included. 05/06/2024 3:00 AM EDT Result [facility] us Riley Strong MD SCAN OTHER ORDERS Final Resu lt * THYROID ULTRASOUND (04/26/2024 3:00 AM EDT) 04/26/2024 3:00 AM EDT Daylin Manuel PA-C IMG CT Final Resul t * REFERRAL TO OPHTHALMOLOGY (04/16/2024 3:00 AM EST) 04/16/2024 3:00 AM EST us Daylin Manuel PA-C REFERRAL Final Resul t * IMAGING SCANNED DOCUMENT (04/11/2024 3:00 AM EST) 04/11/2024 3:00 AM EST us Daylin Manuel PA-C SCAN IMAGING Final Resul t * HEPATITIS C AB W/RFLX HCV RNA, QT, RT PCR (03/25/2024 9:10 AM EST) HEPATITIS C ANTIBODY NON-REACT JEANNETTE NON-REACT JEANNETTE [facility] Comment: HCV antibody was non-reactive. There is no laboratory evidence of HCV infection. In most cases, no further action is required. However, if recent HCV exposure is suspected, a test for HCV RNA (test code 57938) is suggested. For additional information please refer to http://education.Virtual DBS.[employer]/faq/CYV96g4 (This link is being provided for informational/ educational purposes only.) Blood Blood / Unknown 03/25/2024 9 :10 AM EST 03/25/2024 9:10 AM EST Narrative [facility] - 03/31/2024 4:16 PM EST FASTING:YES Result [facility] Daylin Manuel PA-C LAB - BLOOD DRAW Edited [facility] Final Performing Organization Address City/[facility]/ZIP Co de Phone Number [facility] [address] [address], [facility] [address] [address] * TSH W/RFLX FREE T4 (03/25/2024 9:10 AM EST) TSH W/REFLEX TO FT4 0.85 0.40 - 4.50 mIU/L [facility] Blood Blood / Unknown 03/25/2024 9 :10 AM EST 03/25/2024 9:10 AM EST Narrative [facility] - 03/31/2024 4:16 PM EST FASTING:YES Daylin Manuel PA-C LAB - BLOOD DRAW Edited [facility] - Final Performing Organization Address City/[facility]/ZIP Co de Phone Number [facility] [address] [address], [facility] [address] [address] * VITAMIN D, 1,25-DIHYDROXY (03/25/2024 9:10 AM EST) VITAMIN D, 1, 25 (OH)2, TOTAL 39 18 - 72 pg/mL [facility] [employer] [place] VITAMIN D3, 1, 25 (OH)2 39 pg/mL [facility] [employer] [place] VITAMIN D2, 1, 25 (OH)2 <8 pg/mL [facility] [employer] [place] Comment: Vitamin D3, 1,25(OH)2 indicates both endogenous production and supplementation. Vitamin D2, 1,25(OH)2 is an indicator of exogenous sources, such as diet or supplementation. ??Interpretation and therapy are based on measurement of Vitamin D,1,25(OH)2, Total. This test was developed and its analytical performance characteristics have been determined by [employer] [place], [place], [place]. It has not been cleared or approved by the FDA. This assay has been validated pursuant to the CLIA regulations and is used for clinical purposes. Blood Blood / Unknown 03/25/2024 9 :10 AM EST 03/25/2024 9:10 AM EST Narrative [facility] [place] - 03/31/2024 4:16 PM EST FASTING:YES Daylin Manuel PA-C LAB - BLOOD DRAW Final Resu lt Performing Organization Address City/[facility] de Phone Number [facility] [place] [address] [place], [place] , [facility] [place] [id number] [place] [address] * VITAMIN B12 & FOLATE (03/25/2024 9:10 AM EST) Pathologist [facility] VITAMIN B12 463 200 - 1,100 pg/mL [employer] FOLATE, SERUM 9.6 5.5 ng/mL [employer] Comment: ? Reference Range ? Low: ? <3.4 ? Borderline: ?3.4-5.4 ? Normal: ?>5.4 Blood Blood / Unknown 03/25/2024 9 :10 AM EST 03/25/2024 9:10 AM EST Narrative [employer] [facility] [facility] - 03/31/2024 4:16 PM EST FASTING:YES Daylin Manuel PA-C LAB - BLOOD DRAW Edited Res ult - Final [facility] [employer] [facility] [address] [address], [employer] [facility] [address] [place] [address] * BLOOD COUNT COMPLETE AUTO&AUTO DIFRNTL WBC (03/25/2024 9:10 AM EST) Pathologist [facility] WHITE BLOOD CELL COUNT 6.6 3.8 - 10.8 Thousand/ uL [facility] RED BLOOD CELL COUNT 4.69 3.80 - 5.10 Million/u L [facility] HEMOGLOBIN 13.9 11.7 - 15.5 g/dL [facility] HEMATOCRIT 43.3 35.0 - 45.0 % [facility] MCV 92.3 80.0 - 100.0 fL [facility] MCH 29.6 27.0 - 33.0 pg [facility] MCHC 32.1 32.0 - 36.0 g/dL [facility] Comment: For adults, a slight decrease in the calculated MCHC value (in the range of 30 to 32 g/dL) is most likely not clinically significant; however, it should be interpreted with caution in correlation with other red cell parameters and the patient's clinical condition. RDW 13.1 11.0 - 15.0 % [facility] PLATELET COUNT 257 140 - 400 Thousand/ uL [facility] MPV 11.0 7.5 - 12.5 fL [facility] ABSOLUTE NEUTROPHILS 4,079 1,500 - 7,800 cells/uL [facility] ABSOLUTE LYMPHOCYTES 1,815 850 - 3,900 cells/uL [facility] ABSOLUTE MONOCYTES 442 200 - 950 cells/uL [facility] ABSOLUTE EOSINOPHILS 172 15 - 500 cells/uL [facility] ABSOLUTE BASOPHILS 92 0 - 200 cells/uL [facility] NEUTROPHILS PCT 61.8 % [employer] [facility] LYMPHOCYTES 27.5 % [facility] [facility] MONOCYTES 6.7 % [facility] [employer] [facility] EOSINOPHILS 2.6 % [facility] [employer] [facility] BASOPHILS 1.4 % [facility] [employer] [facility] Blood Blood / Unknown 03/25/2024 9 :10 AM EST 03/25/2024 9:10 AM EST Narrative [facility] - 03/31/2024 4:16 PM EST FASTING:YES Daylin Manuel PA-C LAB - BLOOD DRAW Edited Res ult - Final [employer] [facility] [address] [address], [employer] [address] [place] [address] * (ABNORMAL) LIPID PANEL (03/25/2024 9:10 AM EST) CHOLESTEROL, TOTAL 249(H) <200 mg/dL [facility] HDL CHOLESTEROL 73 > OR = 50 mg/dL [facility] TRIGLYCERIDES 99 <150 mg/dL [facility] LDL-CHOLESTEROL 155(H) 99 mg/dL (calc) [facility] Comment: Reference range: <100 Desirable range <100 mg/dL for primary prevention; ?? <70 mg/dL for patients with CHD or diabetic patients with > or = 2 CHD risk factors. LDL-C is now calculated using the Ayad calculation, which is a validated novel method providing better accuracy than the Friedewald equation in the estimation of LDL-C. Rd SALAZAR et al. BRYN. 2013;310(19): 3359-0346 (http://education.DataRPM/faq/HPW977) CHOL/HDLC RATIO 3.4 <5.0 (calc) [facility] NON-HDL CHOLESTEROL 176(H) <130 mg/dL (calc) [facility] Comment: For patients with diabetes plus 1 major ASCVD risk factor, treating to a non-HDL-C goal of <100 mg/dL (LDL-C of <70 mg/dL) is considered a therapeutic option. Blood Blood / Unknown 03/25/2024 9 :10 AM EST 03/25/2024 9:10 AM EST Narrative [employer] [facility] - 03/31/2024 4:16 PM EST FASTING:YES us Daylin Manuel PA-C LAB - BLOOD DRAW Final Resu lt [employer] [facility] [address] [address], [employer] [facility] [address] [place] [address] * (ABNORMAL) COMPREHENSIVE METABOLIC PANEL (03/25/2024 9:10 AM EST) GLUCOSE 88 65 - 99 mg/dL [facility] Comment: ?Fasting reference interval UREA NITROGEN (BUN) 15 7 - 25 mg/dL [facility] CREATININE (blood) 0.56(L) 0.60 - 1.00 mg/dL [facility] EGFR 98 > OR = 60 mL/min/1. 73m2 [facility] BUN/CREATININE RATIO 27(H) 6 - 22 (calc) [facility] SODIUM 143 135 - 146 mmol/L [facility] POTASSIUM 3.6 3.5 - 5.3 mmol/L [facility] CHLORIDE 105 98 - 110 mmol/L [facility] CARBON DIOXIDE 32 20 - 32 mmol/L [facility] CALCIUM 9.5 8.6 - 10.4 mg/dL [facility] PROTEIN, TOTAL 6.8 6.1 - 8.1 g/dL [facility] ALBUMIN 4.1 3.6 - 5.1 g/dL [facility] GLOBULIN 2.7 1.9 - 3.7 g/dL (calc) [facility] ALBUMIN/GLOBULI N RATIO 1.5 1.0 - 2.5 (calc) [facility] BILIRUBIN, TOTAL 0.4 0.2 - 1.2 mg/dL [facility] ALKALINE PHOSPHATASE 51 37 - 153 U/L [facility] AST 25 10 - 35 U/L [facility] ALT 19 6 - 29 U/L [facility] Blood Blood / Unknown 03/25/2024 9 :10 AM EST 03/25/2024 9:10 AM EST Narrative [employer] [facility] - 03/31/2024 4:16 PM EST FASTING:YES us Daylin Manuel PA-C LAB - BLOOD DRAW Edited Res ult - Final [facility] [address] [address], [facility] [address] [address] from Last 3 Months Insurance [place] Care Teams Architecture Professor Relationship Specialty Start Date End Date Daylin Manuel PA-C [address] [place] [id number] PCP - General Primary Care 03/11/24
== END 2024-05-21 11:22 | disposition home or self-care (01) ==
LOC: HO.HMCH 10:12
PROVIDERS: PCP Internal Medicine; Visit Provider Internal Medicine
DX: I10 Essential (primary) hypertension (principal); E78.00 Pure hypercholesterolemia, unspecified; R01.1 Cardiac murmur, unspecified; E04.2 Nontoxic multinodular goiter; M15.0 Primary generalized (osteo)arthritis; M51.360 Other intervertebral disc degeneration, lumbar region with discogenic back pain only; Z86.73 Personal history of transient ischemic attack (TIA), and cerebral infarction without residual deficits; Z86.011 Personal history of benign neoplasm of the brain; K59.00 Constipation, unspecified; E55.9 Vitamin D deficiency, unspecified; G47.00 Insomnia, unspecified; E66.3 Overweight

== ENCOUNTER → 2024-05-21 10:12 | Outpatient (BNVA) | payer MEDICARE, MEDICAID, SELFPAY | PROVIDERS: PCP Internal Medicine; Visit Provider Internal Medicine | DX: I10 Essential (primary) hypertension (principal); E78.00 Pure hypercholesterolemia, unspecified; R01.1 Cardiac murmur, unspecified; E04.2 Nontoxic multinodular goiter; M15.0 Primary generalized (osteo)arthritis; M51.360 Other intervertebral disc degeneration, lumbar region with discogenic back pain only; K59.00 Constipation, unspecified; E55.9 Vitamin D deficiency, unspecified; G47.00 Insomnia, unspecified; E66.3 Overweight; R30.0 Dysuria; E53.8 Deficiency of other specified B group vitamins; D64.9 Anemia, unspecified; Z86.011 Personal history of benign neoplasm of the brain; Z86.73 Personal history of transient ischemic attack (TIA), and cerebral infarction without residual deficits; Z68.26 Body mass index [BMI] 26.0-26.9, adult | CPT/HCPCS: 96127; 99202 ==

== ENCOUNTER → 2024-06-18 10:42 | Outpatient (REF) | payer OTHER, SELFPAY ==
--- NOTE | 2024-06-18 10:49 | CA_ITS ---
Transthoracic Echocardiogram Patient (Last, First, Middle): Nidia Alonso, Gender: Female Date of : 1950 Age: 73 Procedure Date: 06/18/2024 Procedure Type: Transthoracic Echocardiogram Location: OP Height: 162.56 cm Weight: 71.67 kg BSA: 1.77 m2 Heart Rate: bpm BP: 116 / 62 mmHg Chief Technician X Ray: CP/MONTSERRAT Referring MD: Alejo Singh MD Symptoms: R01.1 - Cardiac murmur, unspecified Study Quality: Adequate ECG Rhythm: Sinus Conclusions: - The left ventricular systolic function is mildly decreased. The calculated ejection fraction is 50% by biplane method. - Aortic valve calcification, but no significant stenosis. Findings Left Ventricle Normal left ventricular cavity size. There is mildly increased left ventricular wall thickness. The left ventricular systolic function is mildly decreased. The calculated ejection fraction is 50% by biplane method. There is no evidence of regional wall motion abnormalities. Evidence suggests grade I (mild) diastolic dysfunction. Right Ventricle Normal right ventricular cavity size. There is low normal right ventricular systolic function. Atria The left atrium is moderately dilated. The right atrium is normal in size. Aortic Valve There is a normal trileaflet aortic valve. There is mild calcification of the aortic valve. There is no aortic valve stenosis. No significant aortic stenosis. Mitral Valve There is mild mitral annular calcification. There is trace mitral valve regurgitation. There is no mitral valve stenosis. Pulmonic Valve There is trace pulmonic valve regurgitation. Tricuspid Valve There is trace tricuspid valve regurgitation. There is no evidence of pulmonary hypertension. Great Vessels The asc aorta is normal in size. Venous The inferior vena cava is normal in size and collapses greater than 50% with inspiration. Pericardium/Pleural There is no evidence of pericardial effusion. Prior Study Comparison No prior study available for comparison. Measurements 2D Linear Measurements IVSd: 1.15 0.6-0.9/0.6-1.0 cm LVIDd: 5.33 3.9-5.3/4.2-5.9 cm LVIDd Index: 3.01 2.4-3.2/2.2-3.1 cm/m2 LVIDs: 4.09 2.0-3.6 cm LVPWd: 0.90 0.7-1.1 cm LA Diam: 4.20 2.7-3.8/3.0-4.0 cm LAIDs Index: 2.37 1.5-2.3 cm/m2 LV Mass: 260.21 67-162/88-224 g LV Mass Index: 147.01 43-95/49-115 g/m2 LVOT Diam: 2.20 3.0+(-)1.3 cm 2D Systolic Function EF 4C: 41.10 >55% EF 2C: 58.10 >55% EF BiP: 50.40 >55% Mitral Valve MV Pk E: 0.56 MV PK A: 0.96 MV Decel Time: 221.00 E/A: 0.60 E'Lateral: 3.15 E'Medial: 5.44 E/E' Med: 10.30 E/E' Lat: 17.90 PHT: 65.00 MVA PHT: 3.38 Decel [place]: 2.54 Aortic Valve AoV Pk Ramo: 1.80 AoV Mn Ramo: 1.20 AoV VTI: 0.42 AoV Pk Grad: 13.00 Aov Mn Grad: 7.00 RONAK Cont.VTI: 1.84 LVOT LVOT Pk Ramo: 0.75 LVOT Mn Ramo: 0.55 LVOT VTI: 0.20 LVOT Pk Grad: 2.00 LVOT Mn Grad: 1.00 LVOT Diam: 2.20 LVOT Area: 3.80 Diastolic Function MV Pk E: 0.56 MV Pk A: 0.96 E/A: 0.60 E'Medial: 5.44 E/E' Med: 10.30 E' Laterial: 3.15 E/E' Lat: 17.90 Right Ventricle TAPSE (mm): 24.40 TVS' Ramo: 9.36 Tricuspid Valve TR Pk Ramo: 1.52 TR Pk Grad: 9.00 RA Press: 3.00 RVSP: 12.00 Great Vessels Aorta Sinus of Valsalva: 3.63 2.0-3.[address] [place]: 2.86 1.7-3.4 cm Ao Asc: 3.80 2.1-3.4 cm Updated in Other Vendor System with Status of Final Kayode Mcelroy MD electronically signed on 06/20/2024 11:25:56 AM with status of Final
--- OUTSIDE RECORDS SUMMARY | 2024-06-18 12:21 | XMS_ITS | Clinical Summary ---
Author Organization [facility] Address [address] [place] [address] Phone Care Team Providers Care Relocation Commissioner Name Role Phone Daylin Manuel Primary Care Provider [phone] Encounters Date Type Department Care Team Description 04/09/2024 Telephone [facility] Cardiology [place] [address] [place] [address] Daylin Manuel PA Referral (Received routine [...] 60-74 years 1-dose series) 2012 COVID-19 Vaccine ( - 2023-2 5 season) 2023 Colorectal Cancer Screening: Colonoscopy 04/10/2024 Depression Screening 04/10/2024 Falls Risk Assessment 04/10/2024 Hepatitis C Screening 04/10/2024 Medicare Annual Wellness Visit 04/10/2024 Osteoporosis Screening (Bone Density Screening) 04/10/2024 Social Influencers of Health Screening 04/10/2024 Influenza Vaccine (Season Ended) 2024 HIB Vaccines Aged Out No longer eligi [...] Insurance [place] - [place] MED[place]ARE Care Teams Relocation Commissioner Relationship Specialty Start Date End Date Daylin Manuel PA [address] [place] [address] PCP - General 04/09/24
--- OUTSIDE RECORDS SUMMARY | 2024-06-18 12:21 | XMS_ITS | Clinical Summary ---
Author Organization [facility] Address [address] [place] [address] Care Team Providers Care Data Base Design Analyst Name Role Phone Daylin Manuel PA-C Primary Care Provider Source Comments PLEASE NOTE, if this patient [...] Active ciprofloxacin (CILOXAN) 0.3 % ophthalmic solution 4 Active diclofenac sodium (VOLTAREN) 1 % gel Place onto the skin twice a day 4 Active estradioL 10 mcg tab APPLY PER [...] tablet Take 20 mEq by mouth daily 4 Active progesterone micronized (PROMETRIUM) 200 mg capsule Take 200 mg by mouth nightly at bedtime Active traZODone (DESYREL) 100 mg tablet TAKE 1/2 TABLET BY MOUTH AT BEDTIME FOR 2 WEEKS THEN TAPER TO 1 TABLET BY MOUTH AT BEDTIME 4 Active LINZESS 145 mcg cap Take 145 mcg by mouth daily Active dextran 70-hypromellose (TEARS RENEWED) ophthalmic solutionIndication s:Subconjunctival hemorrhage of left eye Place 1 Drop into both eyes as needed for dry eyes 15 mL 1 5 Active amoxicillin (AMOXIL) 500 mg capsuleIndications :Need for prophylactic antibiotic Take four ($) capsules by mouth one (1) hour before dental appointment. 4 Capsule 5 Active chlorhexidine (PERIDEX) 0.12 % solutionIndication s:Stage 2 grade A generalized periodontitis per AAP/EFP 2017 classification Swish and spit 15 mL 2 (two) times daily 473 mL 5 Active estradioL [address] 10 mcg vaginally 2 times a week (This is one tablet) 24 Tablet 4 5 026 Active cholecalciferol, vitamin D3, (VITAMIN D3) 1,250 mcg (50,000 unit) capsule Take 1 Capsule by mouth once a week 4 Capsule 1 5 Active cyanocobalamin (VITAMIN B-12) 1,000 mcg tablet Take 1 Tablet by mouth daily 90 Tablet 1 5 Active diclofenac sodium (VOLTAREN) 1 % gel Apply topically 2 (two) times daily 100 g 2 5 Active rosuvastatin (CRESTOR) 20 mg tablet Take 1 Tablet by mouth nightly at bedtime 90 Tablet 1 5 Active Active Problems Problem Noted Date Diagnosed Date H/O complete eye exam 04/17/2024 Overview (04/17/2024): 04/16/2024 - [facility] - Ophthalmology - Imp/Plan: [...] valve regurgitation Stress Test - Jony Hernandez - study date 11/22/2021 - Conclusion: The [...] heart rate response during stress [facility] Primary Cement Cutter: Jony Hernandez DO, PhD, [facility] - 01/06/24 ASSESSMENT AND PLAN 1. History [...] intact. Left ventricular hypertrophy 04/08/2024 Overview (04/08/2024): [facility] Primary Cement Cutter: Jony Hernandez DO, PhD, [facility] - 01/06/24 ASSESSMENT AND PLAN 1. [...] Nonrheumatic pulmonary valve insufficiency 04/08 Overview (04/08/2024): [facility] Primary Cement Cutter: Jony Hernandez DO, PhD, [facility] - 01/06/24 ASSESSMENT AND PLAN 1. [...] and intact. Nonrheumatic mitral valve regurgitation 04/08/19 25 Overview (04/08/2024): [facility] Primary Cement Cutter: Jony Hernandez DO, PhD, [facility] - 01/06/24 ASSESSMENT AND PLAN 1. [...] History of loop recorder 04/08/2024 Overview (04/08/2024): [facility] Primary Cement Cutter: Jony Hernandez DO, PhD, [facility] 01/06/24 ASSESSMENT AND PLAN 1. History [...] (03/26/2024): 05/31/2023 - [facility] - Note: Assessment/Plan: 1) Menopausal and female climacteric states 2) postmenopausal atrophic vaginitis. Rx: Estradiol 10 mcg - apply per vagina daily for 2 weeks then 2 times a week; Progesterone 200 mg - take 1 capsule PO QHS F/u 6 months Menopausal and female climacteric states 025 Overview (03/26/2024): 05/31/2023 - [facility] - Note: Assessment/Plan: 1) Menopausal and female climacteric states 2) postmenopausal atrophic vaginitis. Rx: Estradiol 10 mcg - apply per vagina daily for 2 weeks then 2 times a week; Progesterone 200 mg - take 1 capsule PO QHS F/u 6 months Right rotator cuff tear 03/26/2024 Overview (03/26/2024): 07/06/2023 - [facility] - Note: Assessment/Plan: - Right rotator cuff tear - history of rotator cuff repair 01/2022 - MRI 04/2023 reporting tendinosis, full-thickness rotator cuff tearing and arthritis. - Osteoarthritis of right shoulder - recommend glucosamine - heat/stretching laying down Osteoarthritis of right shoulder 03/26/2024 Overview (03/26/2024): 07/06/2023 - [facility] - Note: Assessment/Plan: - Right rotator [...] reverse total shoulder arthroplasty on 10/06/2023 - [facility] GERD (gastroesophageal reflux disease) H/O: [...] Description 05/08/2024 9:40 AM EDT Office Visit [facility] [address] [place] [phone] Sri Petersen DMD Encounter for dental examination (Primary Dx) 04/30/2024 3:20 PM EDT Office Visit [facility] [address] [place] [phone] Jessica Lange NP Rodriguez, Anabel Routine adult health maintenance (Primary Dx); Osteoporosis screening; Encounter for screening mammogram for malignant neoplasm of breast; Nodule of neck; Change in mole; 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; Vitamin D deficiency; Osteoarthritis of right shoulder, unspecified osteoarthritis type; Primary hypertension; Cerebrovascular accident (CVA), unspecified mechanism ([facility]); Lack of housing; Chronic pain of both [...] type 04/19/2024 8:40 AM EST Office Visit [facility] [address] [place] [phone] Javier Luu MD Rodriguez, Anabel Menopausal and female climacteric states (Primary Dx) 04/17/2024 11:00 AM EST Office Visit [facility] [address] [place] [phone] Meghan Hunter Encounter for dental examination (Primary Dx); Need for prophylactic antibiotic; Stage 2 grade A generalized periodontitis per AAP/EFP 2017 classification 04/08/2024 2:00 PM EST Office Visit [facility] [address] [place] [phone] Daylin Manuel PA-C Subconjunctival hemorrhage of left eye (Primary Dx); Cardiac murmur; Left ventricular hypertrophy; H/O: stroke; History of loop recorder; Nonrheumatic mitral valve regurgitation; Nonrheumatic pulmonary valve insufficiency; Amaurosis fugax; Transient cerebral ischemia, unspecified type; Brain aneurysm 03/21/2024 Interim Notes [facility] [address] [place] [phone] Lena Rivera CMA from Last 3 Months Family History Medical [...] 04/30/2024 2:35 PM EDT Plan of Treatment Health Maintenance Due Date [...] Bone Density Screening 2017 Falls Prevention 2017 Kaw-GLNPT-45 (1 - season) 2023 Imm-Influenza (#1) 2023 11/23/2020 Lipid Screening 03/25/2025 03/25/2024 Dental BW 04/19/2025 04/17/2024 Dental Examination 04/19/2025 04/17/2024 Medicare Annual Wellness Visit 04/30/2025 04/30/2024 Tobacco Screening 04/30/2025 04/30/2024 Dental FMX/Pano 04/19/2029 04/17/2024 Alcohol and Drug Screen Completed 03/20/2024 Depression Annual Screen Completed 03/20/2024 Hepatitis C Screening Completed 03/25/2024 Procedures Procedure Name Priority Date/Time Associated Diagnosis Comments OTHER ORDERS SCANNED DOCUMENT 05/23/2024 3:00 AM EDT OTHER ORDERS SCANNED DOCUMENT 05/23/2024 3:00 AM EDT OTHER ORDERS SCANNED DOCUMENT 05/22/2024 3:00 AM EDT OTHER ORDERS SCANNED DOCUMENT 05/22/2024 3:00 AM EDT OFFICE VISIT OBSERVATION NO OTHER SRVC PERFORMED [...] 3:00 AM EST HEALTH HISTORY SCANNED DOCUMENT 04/03/2024 3:00 AM EST REFERRAL TO ENDOCRINOLOGY Routine 04/03/2024 3:00 AM EST Nontoxic multinodular goiter HEALTH HISTORY SCANNED DOCUMENT 03/29/2024 3:00 AM [...] HISTORY SCANNED DOCUMENT 03/21/2024 3:00 AM EST from Last 3 Months Results * OTHER ORDERS SCANNED DOCUMENT (05/23/2024 3:00 AM EDT) Only the most recent of9 resultswithin the time period is included. 05/23/2024 3:00 AM EDT us Mariano MOHAMUD SCAN OTHER ORDERS Final Result * HEALTH HISTORY SCANNED DOCUMENT (05/08/2024 3:00 AM EDT) Only the most recent of8 resultswithin the time period is included. 05/08/2024 3:00 AM EDT us Chma Provider Default SCAN OTHER ORDERS Final Re sult * THYROID ULTRASOUND (04/26/2024 3:00 AM EDT) 04/26/2024 3:00 AM EDT us Daylin Manuel PA-C IMG CT Final Resul t * REFERRAL TO OPHTHALMOLOGY (04/16/2024 3:00 AM EST) 04/16/2024 3:00 AM EST us Daylin Manuel PA-C REFERRAL Final Resul t * IMAGING SCANNED DOCUMENT (04/11/2024 3:00 AM EST) 04/11/2024 3:00 AM EST Result Casey Manuel PA-C SCAN IMAGING Final Resul t * REFERRAL TO ENDOCRINOLOGY (04/03/2024 3:00 AM EST) 04/03/2024 3:00 AM EST us Daylin Manuel PA-C REFERRAL Final Resul t * HEPATITIS C AB W/RFLX HCV RNA, QT, RT PCR (03/25/2024 9:10 AM EST) HEPATITIS C ANTIBODY NON-REACT JEANNETTE NON-REACT JEANNETTE [facility] Comment: HCV antibody was non-reactive. There is no laboratory evidence of HCV infection. In most cases, no further action is required. However, if recent HCV exposure is suspected, a test for HCV RNA (test code 17721) is suggested. For additional information please refer to http://education.CallmyName/faq/GJQ60x4 (This link is being provided for informational/ educational purposes only.) Blood Blood / Unknown 03/25/2024 9 :10 AM EST 03/25/2024 9:10 AM EST Narrative [facility] - 03/31/2024 4:16 PM EST FASTING:YES Result [facility] Daylin Manuel PA-C LAB - BLOOD DRAW Edited Res ult - Final [facility] [address] [place] [id number], [facility] [address] [address] * TSH W/RFLX FREE T4 (03/25/2024 9:10 AM EST) TSH W/REFLEX TO FT4 0.85 0.40 - 4.50 mIU/L [facility] Blood Blood / Unknown 03/25/2024 9 :10 AM EST 03/25/2024 9:10 AM EST Narrative [facility] - 03/31/2024 4:16 PM EST FASTING:YES Daylin Manuel PA-C LAB - BLOOD DRAW Edited Res ult - Final Performing Organization Address City/[facility] Co de Phone Number [facility] [address] [address], [facility] [address] [address] * VITAMIN D, 1,25-DIHYDROXY (03/25/2024 9:10 AM EST) VITAMIN D, 1, 25 (OH)2, TOTAL 39 18 - 72 pg/mL [facility] VITAMIN D3, 1, 25 (OH)2 39 pg/mL [facility] VITAMIN D2, 1, 25 (OH)2 <8 pg/mL [facility] Comment: Vitamin D3, 1,25(OH)2 indicates both endogenous production and supplementation. Vitamin D2, 1,25(OH)2 is an indicator of exogenous sources, such as diet or supplementation. ??Interpretation and therapy are based on measurement of Vitamin D,1,25(OH)2, Total. This test was developed and its analytical performance characteristics have been determined by [facility], [place], [place]. It has not been cleared or approved by the FDA. This assay has been validated pursuant to the CLIA regulations and is used for clinical purposes. Blood Blood / Unknown 03/25/2024 9 :10 AM EST 03/25/2024 9:10 AM EST Narrative [facility] - 03/31/2024 4:16 PM EST FASTING:YES Daylin Manuel PA-C LAB - BLOOD DRAW Final Resu lt Performing Organization Address City/[facility]/ZIP Co de Phone Number [facility] [place] [address] [place], [place] , [facility]/[employer] [place] [address] [place], [place] * VITAMIN B12 & FOLATE (03/25/2024 9:10 AM EST) Pathologist [facility] VITAMIN B12 463 200 - 1,100 pg/mL [facility] FOLATE, SERUM 9.6 5.5 ng/mL [facility] Comment: ? Reference Range ? Low: ? <3.4 ? Borderline: ?3.4-5.4 ? Normal: ?>5.4 Blood Blood / Unknown 03/25/2024 9 :10 AM EST 03/25/2024 9:10 AM EST Narrative [facility] - 03/31/2024 4:16 PM EST FASTING:YES us Daylin Manuel PA-C LAB - BLOOD DRAW Edited Res ult - Final [facility] [address] [place] [address], [facility] [address] [address] * BLOOD COUNT COMPLETE AUTO&AUTO DIFRNTL WBC (03/25/2024 9:10 AM EST) [facility] WHITE BLOOD CELL COUNT 6.6 3.8 - 10.8 Thousand/ uL [facility] RED BLOOD CELL COUNT 4.69 3.80 - 5.10 Million/u L [facility] HEMOGLOBIN 13.9 11.7 - 15.5 g/dL [facility] HEMATOCRIT 43.3 35.0 - 45.0 % [facility] MCV 92.3 80.0 - 100.0 fL [facility] MCH 29.6 27.0 - 33.0 pg [facility] MCHC 32.1 32.0 - 36.0 g/dL [facility] Comment: For adults, a slight decrease in the calculated MCHC value (in the range of 30 to 32 g/dL) is most likely not clinically significant; however, it should be interpreted with caution in correlation with other red cell parameters and the patient's clinical condition. RDW 13.1 11.0 - 15.0 % [facility] PLATELET COUNT 257 140 - 400 Thousand/ uL [facility] MPV 11.0 7.5 - 12.5 fL [facility] [employer] ABSOLUTE NEUTROPHILS 4,079 1,500 - 7,800 cells/uL [facility] ABSOLUTE LYMPHOCYTES 1,815 850 - 3,900 cells/uL [facility] ABSOLUTE MONOCYTES 442 200 - 950 cells/uL [facility] ABSOLUTE EOSINOPHILS 172 15 - 500 cells/uL [facility] ABSOLUTE BASOPHILS 92 0 - 200 cells/uL [facility] [place] [employer] NEUTROPHILS PCT 61.8 % [facility] [facility] LYMPHOCYTES 27.5 % [facility] [employer] [facility] MONOCYTES 6.7 % [facility] EOSINOPHILS 2.6 % [facility] BASOPHILS 1.4 % [facility] [employer] [facility] Blood Blood / Unknown 03/25/2024 9 :10 AM EST 03/25/2024 9:10 AM EST Narrative [facility] - 03/31/2024 4:16 PM EST FASTING:YES Daylin Manuel PA-C LAB - BLOOD DRAW Edited Res ult - Final [employer] [address] [address], [facility] [address] [address] * (ABNORMAL) LIPID PANEL (03/25/2024 9:10 AM EST) CHOLESTEROL, TOTAL 249(H) <200 mg/dL [facility] HDL CHOLESTEROL 73 > OR = 50 mg/dL [employer] TRIGLYCERIDES 99 <150 mg/dL [employer] LDL-CHOLESTEROL 155(H) 99 mg/dL (calc) [employer] [facility] Comment: Reference range: <100 Desirable range <100 mg/dL for primary prevention; ?? <70 mg/dL for patients with CHD or diabetic patients with > or = 2 CHD risk factors. LDL-C is now calculated using the Ayad calculation, which is a validated novel method providing better accuracy than the Friedewald equation in the estimation of LDL-C. Rd SALAZAR et al. BRYN. 2013;310(19): 2503-8284 (http://education.Tanner Research/faq/SXI970) CHOL/HDLC RATIO 3.4 <5.0 (calc) [facility] NON-HDL CHOLESTEROL 176(H) <130 mg/dL (calc) [facility] Comment: For patients with diabetes plus 1 major ASCVD risk factor, treating to a non-HDL-C goal of <100 mg/dL (LDL-C of <70 mg/dL) is considered a therapeutic option. Blood Blood / Unknown 03/25/2024 9 :10 AM EST 03/25/2024 9:10 AM EST Narrative [employer] [facility] - 03/31/2024 4:16 PM EST FASTING:YES Daylin Manuel PA-C LAB - BLOOD DRAW Final Resu lt [facility] [address] [address], [facility] [employer] [facility] [address] [address] * (ABNORMAL) COMPREHENSIVE METABOLIC PANEL (03/25/2024 9:10 AM EST) GLUCOSE 88 65 - 99 mg/dL [facility] Comment: ?Fasting reference interval UREA NITROGEN (BUN) 15 7 - 25 mg/dL [facility] CREATININE (blood) 0.56(L) 0.60 - 1.00 mg/dL [facility] EGFR 98 > OR = 60 mL/min/1. 73m2 [facility] BUN/CREATININE RATIO 27(H) 6 - 22 (calc) [facility] SODIUM 143 135 - 146 mmol/L [employer] [facility] [place] [employer] POTASSIUM 3.6 3.5 - 5.3 mmol/L [employer] [facility] [place] [employer] CHLORIDE 105 98 - 110 mmol/L [facility] CARBON DIOXIDE 32 20 - 32 mmol/L [employer] [place] [employer] CALCIUM 9.5 8.6 - 10.4 mg/dL [facility] PROTEIN, TOTAL 6.8 6.1 - 8.1 g/dL [facility] ALBUMIN 4.1 3.6 - 5.1 g/dL [facility] GLOBULIN 2.7 1.9 - 3.7 g/dL (calc) [facility] ALBUMIN/GLOBULI N RATIO 1.5 1.0 - 2.5 (calc) [facility] BILIRUBIN, TOTAL 0.4 0.2 - 1.2 mg/dL [facility] ALKALINE PHOSPHATASE 51 37 - 153 U/L [facility] AST 25 10 - 35 U/L [facility] ALT 19 6 - 29 U/L [facility] Blood Blood / Unknown 03/25/2024 9 :10 AM EST 03/25/2024 9:10 AM EST Narrative [employer] [facility] - 03/31/2024 4:16 PM EST FASTING:YES Daylin Manuel PA-C LAB - BLOOD DRAW Edited Res ult - Final [employer] [facility] [address] [address], [facility] [address] [place] [address] from Last 3 Months [place] [facility] Member Subscriber Plan / Payer ( fective 2024-Present) Name:Nidia Alonso Member ID:Not on file Relation to Subscriber:Self Name:Nidia Alonso Subscriber ID:Not on file Payer ID:[id number] Group ID:Not on file Type:Indemnity Address: [facility] [address] [address] Care Teams Data Base Design Analyst Relationship Specialty Start Date End Date Daylin Manuel PA-C [address] [place] [id number] PCP - General Primary Care 03/11/24
== END ==
LOC: HO.CARD 10:42
PROVIDERS: PCP Internal Medicine; Visit Provider Internal Medicine
DX: R01.1 Cardiac murmur, unspecified (principal)
CPT/HCPCS: 93306

== ENCOUNTER → 2024-06-18 10:49 | Outpatient (BNV) | payer OTHER, SELFPAY | PROVIDERS: PCP Internal Medicine; Visit Provider Internal Medicine | DX: I35.8 Other nonrheumatic aortic valve disorders (principal); I34.81 Nonrheumatic mitral (valve) annulus calcification; I51.89 Other ill-defined heart diseases | CPT/HCPCS: 93306 ==

== ENCOUNTER 2024-07-16 10:00 | Outpatient (AMB) | payer MEDICARE, MEDICAID, SELFPAY ==
[2024-07-16 10:02] VITALS: BP 120/68; PULSE 63; O2SAT 97; BMI 27.2
--- NOTE | 2024-07-16 10:02 | A.OFFVIS_ITS ---
Vital Signs 3 07/16/24 10:02 Height 5 ft 4.57 in Weight 161 lb 6.054 oz BMI 27.2 BP 120/68 Blood Pressure Location Lt brachial Position Sitting Pulse 63 Pulse Source Pulse Oximeter Pulse Oximetry (%) 97 Oxygen Delivery Method Room Air Intake Visit Reasons: Nontoxic multinodular goiter Intake Note: New patient present today for Nontoxic multinodular goiter office visit. Pretzel Twister Required: No Accompanied by: Self / Same As Patient Allergies No Known Allergies Allergy (Verified 07/16/24 10:07) Medication List - Last Reconciled 07/16/24 by Marina Madrid MD amlodipine 5 mg PO DAILY amoxicillin 2,000 mg PO ONCE chlorhexidine gluconate 0.12% 15 mL PO BID cholecalciferol (vitamin D3) 1,250 mcg PO QWEEK clobetasol 0.05% 1 appl topical DAILY cyanocobalamin (vitamin B-12) 1,000 mcg PO DAILY diclofenac sodium 1% 2 grams topical BID PRN duloxetine 60 mg PO DAILY estradiol 10 mcg vaginal 2XW hydrochlorothiazide 50 mg PO DAILY ibuprofen 800 mg PO TID PRN ketoconazole 2% 1 appl topical 3XW linaclotide (Linzess) 145 mcg PO QAM methocarbamol 500 mg PO DAILY PRN olmesartan 20 mg PO DAILY potassium chloride ER 20 mEq PO DAILY progesterone micronized 200 mg PO BEDTIME rosuvastatin 20 mg PO BEDTIME trazodone 100 mg PO BEDTIME PRN HPI Comments Details: 73-year-old female coming in today for initial evaluation of nontoxic multinodular goiter. Has history of thyroid nodules since 10 years, first diagnosed in [place], then 5 years ago moved to [place]. Just recent Was seeing endo in [place]. Dr. De La Rosa. Doesnt think she had a biopsy, not sure. No TFTs in the system. Ultrasound thyroid done at [facility], report reviewed from 04/30/2024 which showed a dominant 3.7 cm mixed cystic solid, hypoechoic TR 3 category nodule in the isthmus which meets criteria for FNA. Another smaller 1.1 cm solid, hypoechoic TR 4 category nodule in the isthmus noted. This will need follow up. Patient currently denies heat or cold intolerance, diarrhea or constipation, palpitation, anxiety, weight changes, mood changes, changes in appearance of eyes or vision changes, tremors, increased diaphoresis or dry skin. Reports hair loss. ? Reports some tirdeness but helping her 90 years old mom, thats why she moved. Patient denies any difficulty swallowing, pain on swallowing or voice changes or difficulty breathing. Patient denies any history of childhood neck radiation. Denies having ever used lithium, amiodarone or biotin supplements. Daughter has thyroid cancer. Doesnt know what type. Daughter is doing well. Physical exam General: sitting comfortably in no acute distress HEENT: normocephalic/atraumatic, Neck: supple, palpable isthmus 2 cm nodule Cardiac: normal heart sounds Pulm: normal breath sounds B/L, no added breath sounds Abd: not distended, no tenderness Extremities: no edema, no signs of myxedema [facility] Medical History (Updated 05/21/24 @ 12:50 by Alejo Singh MD) Lumbar degenerative disc disease Overweight (BMI 25.0-29.9) Cardiac murmur Vitamin D deficiency Osteoarthritis Insomnia Constipation Multinodular thyroid Pure hypercholesterolemia Essential hypertension Surgical History History of carpal tunnel release of both wrists History of arthroplasty of right shoulder Hx of total knee replacement Family History Other Heart disease Hypertension Skin cancer Social History Housing: Other (living in sisters house currently ) Patient Tobacco Use Status: Former Tobacco user e-Cigarette/Vaping Use: Never Used service: No Current occupational status: retired Current occupational exposures/hazards: No Cognitive needs: No Hearing needs: No Vision needs: No Physical Exam Vital Signs: Last Vital Signs Pulse 63 07/16/24 10:02 BP 120/68 07/16/24 10:02 Pulse Ox 97 07/16/24 10:02 Oxygen Delivery Method Room Air 07/16/24 10:02 BMI result Body Mass Index 27.2 Assessment & Plan Assessment & Plan (1) Multinodular thyroid: Code(s): E04.2 - Nontoxic multinodular goiter Category: Medical Plan: 73-year-old female with family history of thyroid cancer, with no personal history of head or neck radiation, coming in today for initial evaluation of nontoxic multinodular goiter. Has history of thyroid nodules since 8 years, first diagnosed in [place], then 5 years ago moved to [place]. Just recent Was seeing endo in [place]. Dr. De La Rosa. We do not have these records. Apparently PCP obtain records per patient, we will obtain from Dr. Singh's office. Doesnt think she had a biopsy, not sure. No TFTs in the system. No compressive symptoms. Ultrasound thyroid done at [facility], report reviewed from 04/30/2024 which showed a dominant 3.7 cm mixed cystic solid, hypoechoic TR 3 category nodule in the isthmus which meets criteria for FNA. Another smaller 1.1 cm solid, hypoechoic TR 4 category nodule in the isthmus noted. This will need follow up. I explained that it is common to have thyroid nodules. About 95% of the time these nodules are benign. However if the nodule is > 1 cm in size or suspicious on ultrasound then a fine need aspiration biopsy is recommended. We discussed that a FNAB involves 4-5 passes with a small gauge needle and material obtained is sent off for cytology.If the cytopathology is benign then the nodule will be followed annually with repeat ultrasounds. However if it is suspicious or malignant, we will need to discuss further management. Indeterminate cytology can be further investigated with repeat FNA, genetic testing or empiric lobectomy. Malignant cytology is managed with either lobectomy or total thyroidectomy. We discussed briefly that thyroid cancer is, in most patients, an indolent disease that does not affect mortality. We will arrange for FNA of the isthmus 3.7 cm nodule at next available opening and patient will follow up with me in clinic thereafter for results and further decision making. Plan: -scheduled for FNA of the isthmus 3.7 cm nodule and a follow up 2 weeks after to discuss results -TSH with a reflex free T4 ordered to be done today -obtain prior endocrine records of [place] from PCP office Plan I spent 45 minutes in reviewing the record, seeing the patient and documenting in the medical record. Orders: Orders 2 US biopsy thyroid Today E04.2 - Nontoxic multinodular goiter TSH reflex Free T4 Today E04.2 - Nontoxic multinodular goiter Patient Instructions: Please do blood work today We will book you for a thyroid biopsy and follow up after to discuss results Coding Level of Care Code New Pt Level 4 (52660) Diagnoses Multinodular thyroid E04.2 Time Spent (min) 45
--- OUTSIDE RECORDS SUMMARY | 2024-07-16 11:26 | XMS_ITS | Clinical Summary ---
Author Organization [employer] Address [address] [place] [address] Phone Care Team Providers Care Evaluation Analyst Name Role Phone Daylin Manuel Primary Care Provider Social History Tobacco Use Types Packs/Day Years [...] 2002 Zoster Vaccines (1 of 2) 2002 COVID-19 Vaccine ( - 2023-2 5 season) 2023 Colorectal Cancer Screening: Colonoscopy 04/10/2024 Depression Screening 04/10/2024 Falls Risk Assessment 04/10/2024 Hepatitis C Screening 04/10/2024 Medicare Annual Wellness Visit 04/10/2024 Osteoporosis Screening (Bone Density Screening) 04/10/2024 Social Influencers of Health Screening 04/10/2024 Influenza Vaccine (Season Ended) 2024 RSV Immunization Adult Eliseo nts (1 - 1-dose 75+ series) 08/27/2027 HIB Vaccines Aged Out No longer eligi [...] Insurance MED[place] - [place] MEDICARE Care Teams Evaluation Analyst Relationship Specialty Start Date End Date Daylin Manuel PA [address] [place] [id number] PCP - General 04/09/24
== END 2024-07-16 10:41 | disposition home or self-care (01) ==
LOC: HO.ENCR 10:00
PROVIDERS: PCP Internal Medicine; Visit Provider Student in an Organized Health Care Education/Training Program
DX: E04.2 Nontoxic multinodular goiter (principal)
CPT/HCPCS: 99204

== ENCOUNTER → 2024-07-16 10:00 | Outpatient (BNVA) | payer OTHER, SELFPAY | PROVIDERS: PCP Internal Medicine; Visit Provider Student in an Organized Health Care Education/Training Program ==

== ENCOUNTER 2024-07-16 10:47 | Outpatient (REF) | payer OTHER, SELFPAY ==
[2024-07-16 12:33] LABS: TSH reflex Free T4 0.81 uIU/mL (0.32-4.0)
== END 2024-07-16 10:48 | disposition home or self-care (01) ==
LOC: HO.10HDL 10:47
PROVIDERS: Visit Provider Student in an Organized Health Care Education/Training Program
DX: E04.2 Nontoxic multinodular goiter (principal)
CPT/HCPCS: 36415; 84443; 99202

== ENCOUNTER 2024-08-01 07:48 | Outpatient (REF) | payer OTHER, SELFPAY ==
--- NOTE | ~2024-08-01 | CT_ITS ---
CLINICAL HISTORY: Z86.011 - Personal history of benign neoplasm of the brain CT of the head with intravenous contrast Comparison: Prior studies not available at the time of this interpretation Findings: The brain parenchyma is of normal attenuation throughout. The ventricles sulci and basilar cisterns are within normal limits in size for age. There is no space-occupying lesion, midline shift or extra-axial collection. The boss-white matter differentiation is preserved. Brainstem and cerebellum unremarkable. No abnormal leptomeningeal or parenchymal enhancement demonstrated. The imaged portion of the paranasal sinuses demonstrated right frontal ethmoid and maxillary sinusitis obstructive type. No mastoid effusions are demonstrated. Calvarium intact. Impression: 1. No intra or extra-axial mass midline shift mass effect or abnormal enhancement. Comparison with any prior outside studies recommended and an addendum report will be issued This document has been electronically signed by: Samson Abreu MD on 08/02/2024 11:10:39
--- OUTSIDE RECORDS SUMMARY | 2024-08-01 07:51 | XMS_ITS | Patient Health Record ---
Author Organization [facility] Address [address] [address] [place] [address] Care Team Providers Care Forest Economics Professor Name Role Phone Devon Millard MD Primary Care Provider Unavail able MARCELLA HWANG Unavailable [phone] [place] Gaitan MD Unavailable Unavailab le Allergies No Known Allergies Reason For Referral No Information Social History Tobacco Use: Social History Observation Description Date Details (start date - stop date) Former Smoker NA - NA Tobacco Use/Smoking Question Answer Notes Are you a: former smoker Problems Problem Type SNOMED Code ICD Code Onset Dates Problem Status W/U Status Risk Notes Problem Aneurysm (52592314) Aneurysm (I72.9) Active confirmed Problem Acquired aneurysm of cerebral artery (644557035) Acquired aneurysm of cerebral artery (I67.1) Active confirmed Plan Of Treatment Pending Test Test Name Order Date MRA : Head without contrast 05/18/2023 Insurance Providers Payer Name Payer Address Payer Phone Subscriber Number Group Number Insured Name Patient Relationship to Insured Coverage Start Date Coverage End Date Medicare [employer] Plans [address] [address] [place] [address] [phone] [id number] Gavin Nidia Self - patient is the insured Medical (General) History Medical History History ICD Code Brain Aneurysm Fibromyalgia Hypertension I10 Stroke Surgical History Surgery Date(Month/Year) knee surgery Carpal tunnel
[2024-08-01 08:44] LABS: MANUAL DIFF FLAG NO
[2024-08-01 09:03] LABS: Basophils Absolute Auto 0.1 X10*3/uL (0.0-0.2); Eosinophils Absolute Auto 0.2 X10*3/uL (0.0-0.4); Eosinophils Percent Auto 2.5 % (0-4); Hematocrit 38.5 % (37.0-47.0); Hemoglobin 13.1 g/dl (12.0-16.0); Imm Gran Abs Auto 0.01 X10*3/uL (0.00-0.03); Imm Gran Pct Auto 0.1 % (0.0-0.4); Lymphocytes Percent Auto 29.4 % (20-40); Mean Corpuscular Hemoglobin 29.6 pg (27.0-33.0); Mean Corpuscular Volume 86.9 fL (80.0-98.0); Mean Platelet Volume 10.4 fL (9.4-12.3); Monocytes Absolute Auto 0.4 X10*3/uL (0.1-1.2); Monocytes Percent Auto 5.7 % (2-11); Neutrophils Absolute Auto 4.1 x10*3/uL (2.0-8.3); Neutrophils Percent Auto 61.3 % (45-73); Platelet Count 217 X10*3/uL (160-400); Red Blood Count 4.43 X10*6/uL (4.20-5.50); Red Cell Distribution Width 12.7 % (11.0-16.0); White Blood Count 6.7 X10*3/uL (4.8-10.8)
[2024-08-01 10:00] LABS: Alanine Aminotransferase 19 U/L (0-31); Albumin Level 4.1 g/dL (3.5-5.0); Alkaline Phosphatase 57 U/L (39-117); Anion Gap 9 (12-20); Aspartate Amino Transferase 23 U/L (5-31); Bilirubin Total 0.4 mg/dL (0.0-1.0); Blood Urea Nitrogen 16 mg/dL (9-16); Calcium 9.7 mg/dL (8.4-10.2); Carbon Dioxide 32 mmol/L (22-29); Chloride 107 mmol/L (96-108); Cholesterol 214 mg/dL (<200); Estimated Glomerular Filt Rate > 60; Glucose Fasting 101 mg/dL (60-99); Glucose Random 100 mg/dL (60-115); HDL Cholesterol 60 mg/dL (>40); LDL Cholesterol Calculated 129 mg/dL (<100); Potassium 3.5 mmol/L (3.3-5.1); Sodium 144 mmol/L (135-145); Triglycerides 126 mg/dL (<150)
[2024-08-01 10:24] LABS: TSH reflex Free T4 0.62 uIU/mL (0.32-4.0); Vitamin D 25-OH Total 45.6 ng/mL (>30)
[2024-08-01 10:25] LABS: Folate 10.3 ng/mL (> or = 4.0); Vitamin B12 582 pg/mL (200-900)
[2024-08-01] MEDS: iohexoL 350 MG/ML 100 ML INFUS..BTL IV (10:42)
[2024-08-01 11:16] LABS: Appearance Urine Cloudy; Color Urine Yellow; Glucose Urine UA Negative (Negative); Leukocyte Esterase Urine Moderate (2+) (Negative); Nitrite Urine Negative (Negative); Specific Gravity - Urine >= 1.030 (1.005-1.025); UMIC TRIGGER UACC YES; Urine Blood Negative (Negative); Urine Ketones Negative (Negative); Urine Protein Negative (Neg-Trace)
[2024-08-01 11:19] LABS: Bacteria Urine None Seen (None Seen); Hyaline Casts Urine 0-2 /LPF (0-2); RBC Urine 0-2 /HPF (0-2); UACC Culture Trigger YES
== END 2024-08-01 07:49 | disposition home or self-care (01) ==
LOC: HO.CT 07:48
PROVIDERS: PCP Internal Medicine; Visit Provider Internal Medicine
DX: E78.00 Pure hypercholesterolemia, unspecified (principal); E53.8 Deficiency of other specified B group vitamins; I10 Essential (primary) hypertension; D64.9 Anemia, unspecified; E55.9 Vitamin D deficiency, unspecified; Z86.011 Personal history of benign neoplasm of the brain; Z86.73 Personal history of transient ischemic attack (TIA), and cerebral infarction without residual deficits; R82.90 Unspecified abnormal findings in urine
CPT/HCPCS: 36415; 70460; 80053; 80061; 81001; 82306; 82607; 82746; 84443; 85025; 87086; Q9967

== ENCOUNTER → 2024-08-01 08:48 | Outpatient (BNV) | payer OTHER, SELFPAY | PROVIDERS: PCP Internal Medicine; Visit Provider Radiology Diagnostic Radiology | DX: Z86.011 Personal history of benign neoplasm of the brain (principal) | CPT/HCPCS: 70460 ==

== ENCOUNTER 2024-08-21 10:03 | Outpatient (REF) | payer OTHER, SELFPAY ==
--- NOTE | 2024-08-21 10:48 | PM.PROC ---
Brief Operative Note Date of procedure: 08/21/24 Pre-op diagnosis: right isthmus 3.7 cm thyroid nodule FNA biopsy Post-op diagnosis: same Procedure: THYROID FINE NEEDLE ASPIRATION PROCEDURE NOTE ? PROCEDURE PERFORMED: Ultrasound-guided FNA of thyroid nodule ? OPERATORS: Dr. Marina Madrid ? INDICATION: right isthmus 3.7 cm thyroid nodule FNA biopsy ; FNA performed to assess for malignancy ? DESCRIPTION OF PROCEDURE: The indications for FNA (to assess for malignancy) were reviewed with the patient in detail. Potential complications (e.g., bleeding, infection, damage to local structures, absence of clear diagnosis after FNA) were reviewed. Alternatives to FNA including conservative observation or surgery were described. The patient understood and agreed to proceed. This was documented by the signing of the written informed consent form. A time-out was performed to confirm the patient's identity and the site of planned FNA. The nodule of interest was identified using ultrasound (14 MHz linear array probe). The site of FNA was then draped in the usual fashion and carefully cleaned and prepared using alcohol swabs. The skin at the previously-identified site of needle insertion was iced and sprayed with numbing spray. Under ultrasound guidance, 5__ passes were performed using a 1.5-inch, 25-gauge needle, and sample was obtained via capillary action. The needle tip was clearly visualized to be within the nodule at the time of sampling for _5_ of _5_ passes. The patient tolerated the procedure well. There were no immediate complications. A small adhesive bandage was applied, and the patient was advised to take acetaminophen (rather than NSAIDs) for any discomfort and to report any signs of inflammation/infection or marked swelling. IMPRESSION: Technically successful ultrasound-guided fine needle aspiration of right isthmus 3.7 cm thyroid nodule. PLAN: The patient was advised that I will provide follow-up regarding the cytology result and any subsequent plans. Marina Madrid MD Endocrinology Attending Condition: stable Disposition: same day
--- OUTSIDE RECORDS SUMMARY | 2024-08-21 10:48 | XMS_ITS | Patient Health Record ---
Author Organization [facility] Address [address] [address] [place] [address] Care Team Providers Care Six Horse Hitch Driver Name Role Phone Devon Millard MD Primary Care Provider Unavail able MARCELLA HWANG Unavailable [phone] [place] Gaitan MD Unavailable Unavailab le Allergies No Known Allergies Reason For Referral No Information Social History Tobacco Use: Social History Observation Description Date Details (start date - stop date) Former Smoker NA - NA Tobacco Use/Smoking Question Answer Notes Are you a: former smoker Problems Problem Type SNOMED Code ICD Code Onset Dates Problem Status W/U Status Risk Notes Problem Aneurysm (33886063) Aneurysm (I72.9) Active confirmed Problem Acquired aneurysm of cerebral artery (480944615) Acquired aneurysm of cerebral artery (I67.1) Active confirmed Plan Of Treatment Pending Test Test Name Order Date MRA : Head without contrast 05/18/2023 Insurance Providers Payer Name Payer Address Payer Phone Subscriber Number Group Number Insured Name Patient Relationship to Insured Coverage Start Date Coverage End Date Medicare [employer] Plans [address] [address] [place] [address] [id number] Gavin Nidia Self - patient is the insured Medical (General) History Medical History History ICD Code Brain Aneurysm Fibromyalgia Hypertension I10 Stroke Surgical History Surgery Date(Month/Year) knee surgery Carpal tunnel
--- OUTSIDE RECORDS SUMMARY | 2024-08-21 10:48 | XMS_ITS | Clinical Summary ---
Author Organization [employer] Address [address] [facility] [address] [place] [address] Phone Care Team Providers Care Toe Lining Closer Name Role Phone Daylin Manuel Primary Care Provider [phone] Social History Tobacco Use Types Packs/Day Years [...] Influencers of Health Screening 04/10/2024 Influenza Vaccine (#1) 2024 RSV Immunization Adult Eliseo nts (1 [...] [place] Care Teams Toe Lining Closer Relationship Specialty Start Date End Date Daylin Manuel PA [facility] [place] [address] PCP - General 04/09/24
--- OUTSIDE RECORDS SUMMARY | 2024-08-21 10:48 | XMS_ITS | Patient Health Record ---
Author Organization [facility] Address [address] [address] Care Team Providers Care Crew Mess Attendant Name Role Phone Devon Sen MD Primary Care Provider Unavail able Nick Neal Unavailable [phone] TROY SEN MD Unavailable Unavailable Delmi Potter Unavailable [phone] Allergies No Known Allergies Results Component Value Reference Range Notes Gastrointestinal (Not yet re viewed by provider) Interpretation: Performing Lab: Notes/Report: Referring Physician : , Location : [facility] : [address] [place] [address], [address], [place], [place], [address] A :Colon, Colon, Rectosigmoid, X3 Diagnosis Summary [...] on :09/01/2023 00:00:00 Reason For Referral Reason CSP Diagnosis 1 `SCREENING, COLON CA NCER (Z12.11) Referring Provider First Name Devon Referring Provider Last Name Venice Referring Provider Speciality Internal edicine Referred Organization [facility] Referred Provider Nick Neal Referred Address [address],[place], [place],[id number] Referred Provider Specialty Gastroentero logy Procedure 1 COLONOSCOPY FLEXIBLE , PROXIMAL TO SPLENIC FLEXURE,WITH BIOPSY, SINGLE OR MULTIPLE (52756) Referral Priority Routine Reason Req from spec, F/U o n 11/16/23 w/Dr. Nick Neal , CC marked urgent for time only Referred Organization [facility] Referred Provider Nick Neal Referred Address [address] [facility],[place], [place],[address],[place] General Notes Devon Sen 03:09:04 PM >.Okay to proceed with referral, thank you., Bob Galan 11/14/2023 06:58:56 PM >req from spec, pcp approved, sent to cm for review., Emili Cameron 11/15/2023 09:41:44 AM >Approved x 1 to [facility] preferred Specialist/Imaging Facility, please process. Thank you., Emili Ross Lpn, Qm Nurse, Bob Galan 11/15/2023 11:27:44 AM >referral/auth faxed to spec Dr. Nick Roman appt 11/16/23, faxed manually to [phone]. Clinical Notes Emili Cameron 03/2023 09:41:40 AM >+++++PLEASE FAX CONSULT NOTES TO PCP OFFICE AFTER PATIENTS VISIT. THANK YOU.+++++, FAX #: [phone]. Referral Priority Urgent Referral Appointment Date 11/16/2023 Reason 1 FU Referring Provider First Name Devon Referring Provider Last Name Venice Referring Provider Speciality Internal edicine Referred Organization [facility] Mac Referred Provider Nick Neal Referred Address [address], [place],[address], Referral Priority Routine Medications Medication SIG (Take, Route, Frequency, Duration) Notes Start Date End Date Status Olmesartan Medoxomil-HCTZ 40-12.5 MG 1 tablet Orally Once a day Active PEG-3350/Electrolytes 236 GM ML as direc jenn Orally Day before the procedure; Duration: 1 days 07/31/2023 Not-Taking amLODIPine Besylate 10 [...] Problem Status W/U Status Risk Notes Problem History of polyp of colon (125507759) 1. Personal history of colon polyps (Z86.010) Active confirmed Problem Adenomatous polyp of rectum (1921056092052) Adenomatous polyp of rectum (D12.8) Active confirmed Problem Benign neoplasm of colon (77173602) Colon adenoma (D12.6) Active confirmed Problem Diverticular disease of colon (768576596) Diverticulosis large intestine w/o perforation or abscess w/o bleeding (K57.30) Active confirmed Vital Signs Blood pressure diastolic 88 mm Hg 11/16/2023 Weight-kg 75.3 kg 11/16/2023 Height 66 in 11/16/2023 Blood pressure systolic 157 mm Hg 11/16/2023 Weight 166 lbs 11/16/2023 BMI 26.79 kg/m2 11/16/2023 Encounters Encounter Location Date Provider Diagnosis [facility] [address] [place], [place] [id number] 08/28/2023 Nick Neal Encounter for screening for malignant neoplasm of colon Z12.11 ; Rectal polyp K62.1 and Diverticulosis of large intestine without perforation or abscess without bleeding K57.30 [facility] [place] [address] [place] [address] 11/16/2023 Delmi Potter Adenomatous polyp of rectum D12.8 ; Colon adenoma D12.6 and Diverticulosis large intestine w/o perforation or abscess w/o bleeding K57.30 Assessments Encounter Date Diagnosis (ICD Code) Assessment Notes Treatment Notes Treatment Clinical Notes Section Notes 08/28/2023 Rectal polyp (ICD-10 - K62.1) 08/28/2023 Encounter for screening for malignant neoplasm of colon (ICD-10 - Z12.11) 11/16/2023 Adenomatous polyp of rectum (ICD-10 - D12.8) repeat CSP in 5 year 11/16/2023 Colon adenoma (ICD-10 - D12.6) repeat csp in 5 years 11/16/2023 Diverticulosis large intestine w/o perforation or abscess w/o bleeding (ICD-10 - K57.30) Diverticulosis : These are small pockets that develop over [...] or abscess without bleeding (ICD-10 - K57.30) Plan Of Treatment Pending Test Test Name Order Date Gastrointestinal 08/28/2023 Future Test Test Name Order Date Colonoscopy 06/30/2023 Cardiac Clearance 06/30/2023 Insurance Providers Payer Name Payer Address Payer Phone Subscriber Number Group Number Insured Name Patient Relationship to Insured Coverage Start Date Coverage End Date [facility] MEDICARE REPLACEMET [address] [address] [place], [place] [id number] Self - patient is the insured Medical (General) History Medical History History ICD Code High Blood Pressure High Cholesterol Implantable loop recorder Stroke Brain Aneurysm Surgical History Surgery Date(Month/Year) Knee Replacement Shoulder replacement (Left)
--- OUTSIDE RECORDS SUMMARY | 2024-08-21 10:48 | XMS_ITS | Encounter Summary ---
Author Organization [facility] Address [address] [place] [address] Care Team Providers Care Lathe Machinist Name Role Phone Daylin Manuel PA-C Primary Care Provider Encounter Details Date Type Department Care Team (Late st Contact Info) Description 07/29/2024 Results Follow-Up [facility] [address] [place] [address] Jessica Lange NP [address] [place] [address] Social History Tobacco Use Types Packs/Day Years Used Date Smoking Tobacco: Former Cigarettes Smokeless Tobacco: Never Comments:Started smoking cig arettes ~ 32 years of age Quit smoking cigarettes ~ 52 years of age Alcohol Use Standard Drinks/Week Comments Yes 0 (1 standard drink = 0.6 oz pur e alcohol) socially Social Connections Answer Date Recorded How often do you feel lonely or isolated from th ose around you? 1 03/20/2024 Financial Resource Strain Answer Date R ecorded Hard to pay for: Food 2 03/20/2024 Stress Answer Date Recorded Do you feel these kinds of stress these days? 1 03/20/2024 Food Insecurity Answer Date Recorded Hard to pay for: Food 2 03/20/2024 Transportation Needs Answer Date Record ed Hard to pay for: Transportation 1 03/20/2024 Housing Stability Answer Date Recorded Hard to pay for: Rent/Mortgage payment 2 03/20/2024 Utilities Answer Date Recorded Hard to pay for: Utilities 2 03/20 Comments No Sex and Gender Information Value Date Recorded Sex Assigned at Female 03/20/2024 9:45 AM PST Legal Sex Female 7:58 AM PST Gender Identity Female 03/20/2024 9:45 AM PST Sexual Orientation Straight 03/20/2024 9: 45 AM PST documented as of this encounter Miscellaneous Notes * Result Encounter Note - Jessica Lange NP - 07/29/2024 9:13 AM EDT Good morning can you please reach out to patient and let her know ultrasound of her neck back showing benign lipoma to her neck. A lipoma is fat lump that is harmless. If patient is interested I can place referral to general surgery to see if it can be surgically removed if she is interested. Thankyou documented in this encounter Plan of Treatment Not on file documented as of this encounter Visit Diagnoses Not on filedocumented in this encounter Additional Health Concerns Assessment Noted Time PHQ-9 Depression Total Score: 0 03/20/19 10:04 AM PST documented as of this encounter Care Teams Lathe Machinist Relationship Specialty Start Date End Date Daylin Manuel PA-C [address] [place] [address] PCP - General Primary Care 03/11/24 documented as of this encounter
== END 2024-08-21 10:04 | disposition home or self-care (01) ==
LOC: HO.US 10:03
PROVIDERS: PCP Internal Medicine; Visit Provider Student in an Organized Health Care Education/Training Program
DX: E04.2 Nontoxic multinodular goiter (principal)
CPT/HCPCS: 10005; 88173; 88305

== ENCOUNTER → 2024-08-21 10:03 | Outpatient (BNV) | payer OTHER, SELFPAY | PROVIDERS: PCP Internal Medicine; Visit Provider Student in an Organized Health Care Education/Training Program | DX: E04.1 Nontoxic single thyroid nodule (principal) | CPT/HCPCS: 10005 ==

== ENCOUNTER 2024-09-04 13:52 | Outpatient (AMB) | payer OTHER, SELFPAY ==
[2024-09-04 13:53] VITALS: BP 160/90; PULSE 81; O2SAT 97; BMI 26.9
--- NOTE | 2024-09-04 13:53 | A.OFFVIS_ITS ---
Vital Signs 3 09/04/24 13:53 Height 5 ft 4.57 in Weight 159 lb 9.835 oz BMI 26.9 BP 160/90 H Blood Pressure Location Lt brachial Position Sitting Pulse 81 Pulse Source Pulse Oximeter Pulse Oximetry (%) 97 Oxygen Delivery Method Room Air Intake Visit Reasons: Biopsy f/u Intake Note: Patient present today for biopsy follow up. Packing Room Inspector Required: Yes Packing Room Inspector Language: Driver'S Education Instructor Services: Packing Room Inspector Present Packing Room Inspector Name: Bonita Information Interpreted: non-clinical & clinical Accompanied by: Self / Same As Patient Allergies No Known Allergies Allergy (Verified 09/04/24 13:57) HPI Comments Details: 73-year-old female coming in today for follow up of nontoxic multinodular goiter. HPI Has history of thyroid nodules since 10 years, first diagnosed in [place], then 5 years ago moved to [place]. Just recent Was seeing endo in [place]. Dr. De La Rosa. Doesnt think she had a biopsy, not sure. No TFTs in the system. Ultrasound thyroid done at [facility], report reviewed from 04/30/2024 which showed a dominant 3.7 cm mixed cystic solid, hypoechoic TR 3 category nodule in the isthmus which meets criteria for FNA. Another smaller 1.1 cm solid, hypoechoic TR 4 category nodule in the isthmus noted. This will need follow up. Patient currently denies heat or cold intolerance, diarrhea or constipation, palpitation, anxiety, weight changes, mood changes, changes in appearance of eyes or vision changes, tremors, increased diaphoresis or dry skin. Reports hair loss. ? Reports some tirdeness but helping her 90 years old mom, thats why she moved. Patient denies any difficulty swallowing, pain on swallowing or voice changes or difficulty breathing. Patient denies any history of childhood neck radiation. Denies having ever used lithium, amiodarone or biotin supplements. Daughter has thyroid cancer. Doesnt know what type. Daughter is doing well. Interval history 08/01/2024 TSH: 0.62 08/21/2024: Right isthmus 3.7 cm nodule came back as nondiagnostic, [employer] category 1. Physical exam General: sitting comfortably in no acute distress HEENT: normocephalic/atraumatic, Neck: supple, palpable isthmus 2 cm nodule Cardiac: normal heart sounds Pulm: normal breath sounds B/L, no added breath sounds Abd: not distended, no tenderness Extremities: no edema, no signs of myxedema Laboratory Tests 08/01/24 08:43 TSH 0.62 PFSH Medical History (Updated 05/21/24 @ 12:50 by Alejo Singh MD) Lumbar degenerative disc disease Overweight (BMI 25.0-29.9) Cardiac murmur Vitamin D deficiency Osteoarthritis Insomnia Constipation Multinodular thyroid Pure hypercholesterolemia Essential hypertension Surgical History History of carpal tunnel release of both wrists History of arthroplasty of right shoulder Hx of total knee replacement Family History Other Heart disease Hypertension Skin cancer Social History Housing: Other (living in sisters house currently ) Patient Tobacco Use Status: Former Tobacco user e-Cigarette/Vaping Use: Never Used service: No Current occupational status: retired Current occupational exposures/hazards: No Cognitive needs: No Hearing needs: No Vision needs: No Physical Exam Vital Signs: Last Vital Signs Pulse 81 09/04/24 13:53 BP 160/90 H 09/04/24 13:53 Pulse Ox 97 09/04/24 13:53 Oxygen Delivery Method Room Air 09/04/24 13:53 BMI result Body Mass Index 26.9 Assessment & Plan Assessment & Plan (1) Multinodular thyroid: Code(s): E04.2 - Nontoxic multinodular goiter Category: Medical Plan: 73-year-old female with family history of thyroid cancer, with no personal history of head or neck radiation, coming in today for initial evaluation of nontoxic multinodular goiter. Has history of thyroid nodules since 8 years, first diagnosed in [place], then 5 years ago moved to [place]. Just recent Was seeing endo in [place]. Dr. De La Rosa. We do not have these records. Apparently PCP obtain records per patient, we will obtain from Dr. Singh's office. Doesnt think she had a biopsy, not sure. No compressive symptoms. Ultrasound thyroid done at [facility], report reviewed from 04/30/2024 which showed a dominant 3.7 cm mixed cystic solid, hypoechoic TR 3 category nodule in the isthmus which meets criteria for FNA. Another smaller 1.1 cm solid, hypoechoic TR 4 category nodule in the isthmus noted. This will need follow up. 08/01/2024 TSH: 0.62 08/21/2024: Right isthmus 3.7 cm nodule came back as nondiagnostic, [employer] category 1., while I was doing her ultrasound I noted it is more in the right side of the isthmus than the central isthmus. I discussed with the patient that nondiagnostic results yield a 5-20% chance of malignancy. At this time we would recommend repeating the biopsy in 3 months. We will arrange for repeat FNA of the right isthmus 3.7 cm nodule in 3 months and patient will follow up with me in clinic thereafter for results and further decision making. Plan: -scheduled for repeat FNA of the isthmus 3.7 cm nodule in 3 months and a follow up 2 weeks after to discuss results -TSH with a reflex free T4 ordered to be done today -obtain prior endocrine records of [place] from PCP office Plan See above Orders: Orders 2 US biopsy thyroid Today E04.2 - Nontoxic multinodular goiter Patient Instructions: We will schedule you for repeat biopsy of your right isthmus nodule in about 3 months Coding Level of Care Code Est Pt Level 3 (97557) Diagnoses Multinodular thyroid E04.2
--- OUTSIDE RECORDS SUMMARY | 2024-09-04 14:37 | XMS_ITS | Patient Health Record ---
Author Organization [facility] Address [address] [address] [address] [place] [address] Care Team Providers Care Narrow Gauge Engineer Name Role Phone Devon Millard MD Primary Care Provider Unavail able MARCELLA HWANG Unavailable [phone] [place] Gaitan MD Unavailable Unavailab le Allergies No Known Allergies Reason For Referral No Information Social History Tobacco Use: Social History Observation Description Date Details (start date - stop date) Former Smoker NA - NA Tobacco Use/Smoking Question Answer Notes Are you a: former smoker Problems Problem Type SNOMED Code ICD Code Onset Dates Problem Status W/U Status Risk Notes Problem Aneurysm (73166066) Aneurysm (I72.9) Active confirmed Problem Acquired aneurysm of cerebral artery (292614146) Acquired aneurysm of cerebral artery (I67.1) Active confirmed Plan Of Treatment Pending Test Test Name Order Date MRA : Head without contrast 05/18/2023 Insurance Providers Payer Name Payer Address Payer Phone Subscriber Number Group Number Insured Name Patient Relationship to Insured Coverage Start Date Coverage End Date Medicare [employer] [address] [address] [place] [phone] [id number] Nidia Alonso Self - patient is the insured Medical (General) History Medical History History ICD Code Brain Aneurysm Fibromyalgia Hypertension I10 Stroke Surgical History Surgery Date(Month/Year) knee surgery Carpal tunnel
--- OUTSIDE RECORDS SUMMARY | 2024-09-04 14:37 | XMS_ITS | Clinical Summary ---
Author Organization [facility] [employer] Address [address] [place] [address] Phone Care Team Providers Care Floor Cashier Name Role Phone Daylin Manuel Primary Care Provider [phone] Social History Tobacco Use Types Packs/Day Years [...] Vaccine ( - 2023-2 5 season) 2023 Depression Screening 02/14/2024 Colorectal Cancer Screening: Colonoscopy 04/10/2024 Falls Risk Assessment 04/10/2024 Hepatitis C [...] Insurance MEDICA[place] - [place] MEDICARE Care Teams Floor Cashier Relationship Specialty Start Date End Date Daylin Manuel PA [facility] [place] [address] PCP - General 04/09/24
--- OUTSIDE RECORDS SUMMARY | 2024-09-04 14:37 | XMS_ITS | Clinical Summary ---
Author Organization [facility] Address [address] [place] [address] Care Team Providers Care Manager Gyn Name Role Phone Daylin Manuel PA-C Primary [...] eye exam 04/17/2024 Overview (04/17/2024): 04/16/2024 - [facility] - Ophthalmology - Imp/Plan: [...] heart rate response during stress OHHVI Primary Extract Puller: Jony Hernandez DO, PhD, [facility] - 01/06/24 ASSESSMENT AND PLAN 1. [...] intact. Left ventricular hypertrophy 04/08/2024 Overview (04/08/2024): [facility] Primary Extract Puller: Jony Hernandez DO, PhD, [facility] - 01/06/24 ASSESSMENT AND PLAN 1. History of loop recorder (Primary) Overview: 04/11/2022- [employer] 01/03/2024 Explant 2. Amaurosis fugax 3. Primary hypertension ([facility]) 4. LVH (left ventricular hypertrophy) 5. Nonrheumatic [...] dry and intact. CVA (cerebral vascular accident) ([facility]) 04/08/2024 Primary hypertension 04/08/2024 Nonrheumatic pulmonary valve insufficiency 04/08 Overview (04/08/2024): [facility] Primary Extract Puller: Jony Hernandez DO, PhD, [facility] - 01/06/24 ASSESSMENT AND PLAN 1. History [...] mitral valve regurgitation 04/08/19 25 Overview (04/08/2024): [facility] Primary Extract Puller: Joyn Hernandez DO, PhD, [facility] - 01/06/24 ASSESSMENT AND PLAN 1. History [...] History of loop recorder 04/08/2024 Overview (04/08/2024): [facility] Primary Extract Puller: Jony Hernandez DO, PhD, [facility] 01/06/24 ASSESSMENT AND PLAN 1. History of [...] (03/26/2024): 05/31/2023 - [facility] - Note: Assessment/Plan: 1) Menopausal and female climacteric states 2) postmenopausal atrophic vaginitis. Rx: Estradiol 10 mcg - apply per vagina daily for 2 weeks then 2 times a week; Progesterone 200 mg - take 1 capsule PO QHS F/u 6 months Menopausal and female climacteric states 025 Overview (03/26/2024): 05/31/2023 - [facility] - Note: Assessment/Plan: 1) Menopausal and female climacteric states 2) postmenopausal atrophic vaginitis. Rx: Estradiol 10 mcg - apply per vagina daily for 2 weeks then 2 times a week; Progesterone 200 mg - take 1 capsule PO QHS F/u 6 months Right rotator cuff tear 03/26/2024 Overview (03/26/2024): 07/06/2023 - [facility] - Note: Assessment/Plan: - Right rotator cuff tear - history of rotator cuff repair 01/2022 - MRI 04/2023 reporting tendinosis, full-thickness rotator cuff tearing and arthritis. - Osteoarthritis of right shoulder - recommend glucosamine - heat/stretching laying down Osteoarthritis of right shoulder 03/26/2024 Overview (03/26/2024): 07/06/2023 - [facility] - Note: Assessment/Plan: - [...] reverse total shoulder arthroplasty on 10/06/2023 - [facility] GERD (gastroesophageal reflux disease) [...] Encounters Date Type Department Care Team Description 07/29/2024 Results Follow-Up [address] [address] Jessica Lange NP from Last 3 Months Family History Medical [...] 67 05/08/2024 9:41 AM EDT Temperature 36.9 C (98.5 F) 04/30/2024 2:35 PM EDT Respiratory Rate 16 04/30/2024 2:35 PM EDT Oxygen Saturation 97% 04/30/2024 2:35 PM EDT Inhaled Oxygen Concentration - - Weight 70.8 kg (156 lb) 04/30/2024 2:35 PM EDT Height 170.2 cm (5' 7 ) 04/30/2024 2:35 PM EDT Body Mass Index 24.43 04/30/2024 2:35 PM EDT Plan of Treatment Health Maintenance Due Date Last Done Comments Dental Perio Charting 1952 Dental Prophy 1952 Medicare Annual Wellness Visit 1970 Imm-DTaP/Tdap/Td (1 - Tdap) 08/27/1971 Breast Cancer Screening (Mammogram) 1992 CT Colonography 1997 Colonoscopy 1997 Colorectal Cancer Screening 1997 FIT/gFOBT 1997 Fecal DNA 1997 Flexible Sigmoidoscopy 1997 Imm-Pneumococcal 50+ (1 of 1 - PCV) 2002 Imm-Zoster, Recombinant (1 of 2) 2002 Bone Density Screening 2017 Falls Prevention 2017 Rju-[id number]-06 ( - season) 2023 Imm-Influenza (#1) 2024 11/23/2020 Lipid Screening 03/25/2025 03/25/2024 Dental BW 04/19/2025 04/17/2024 Dental Examination 04/19/2025 04/17/2024 Tobacco Screening 04/30/2025 04/30/2024 Dental FMX/Pano 04/19/2029 04/17/2024 Alcohol and Drug Screen Completed 03/20/2024 Depression Annual Screen Completed 03/20/2024 Hepatitis C Screening Completed 03/25/2024 Procedures Procedure Name Priority Date/Time Associated Diagnosis Comments US SOFT TISSUE NECK Routine 07/22/2024 3 :00 AM EDT Nodule of neck INTRAORAL - COMP SERIES OF RADIOGRAPHIC IMAGES Routine 04/17/2024 11:00 AM EST Encounter for dental examination Stage 2 grade A generalized periodontitis per AAP/EFP 2017 classification COMP ORAL EVALUATION - NEW/ESTABLISHED PATIENT Routine 04/17/2024 11:00 AM EST Encounter for dental examination Stage 2 grade A generalized periodontitis per AAP/EFP 2017 classification HEPATITIS C AB W/RFLX HCV RNA, QT, RT PCR Routine 03/25/2024 9:10 AM EST Encounter to establish care LIPID PANEL Routine 03/25/2024 9:10 AM EST Encounter to establish care from Last 3 Months or Most Recently Relevant to Health Maintenance Results * US SOFT TISSUE NECK (07/22/2024 3:00 AM EDT) 07/22/2024 3:00 AM EDT Impressions [facility] - 07/26/2024 12:47 PM EDT IMPRESSION: Benign superficial soft tissue lipoma. Follow up could be performed simply with physical examination. No dedicated imaging follow up is required. Luis Torres MD Signed by Luis Torres MD Read by: Luis Torres M.D. Reviewed and Electronically Signed by: Luis Torres M.D. [facility] DIAGNOSTIC IMAGING - 07/26/2024 12:47 PM EDT Original Report PROCEDURE: US SOFT TISSUE NECK INDICATION: Palpable nodule within the right posterior neck x two months, painful with palpation. TECHNIQUE: Ultrasound of the Soft Tissue Neck. COMPARISON: None Available. FINDINGS: There is a well circumscribed structure with benign sonographic features in the superficial soft tissues measuring 2.7 x 0.4 x 2.5 cm. Leading differential consideration would be a benign superficial soft tissue lipoma. Procedure Note Default, [facility] Provider - 07/26/2024 Original Report PROCEDURE: US SOFT TISSUE NECK INDICATION: Palpable nodule within the right posterior neck x two months, painful with palpation. TECHNIQUE: Ultrasound of the Soft Tissue Neck. COMPARISON: None Available. FINDINGS: There is a well circumscribed structure with benign sonographic features in the superficial soft tissues measuring 2.7 x 0.4 x 2.5 cm. Leading differential consideration would be a benign superficial soft tissue lipoma. IMPRESSION: IMPRESSION: Benign superficial soft tissue lipoma. Follow up could be performed simply with physical examination. No dedicated imaging follow up is required. Luis Torres MD Signed by Luis Torres MD Read by: Luis Torres M.D. Reviewed and Electronically Signed by: Luis Torres M.D. Jessica Lange PAYROLL MANAGER IMG ULTRASOUND Edited Result - Final [facility] Corporate Office [address], [address] [place] [address], * HEPATITIS C AB W/RFLX HCV RNA, QT, RT PCR (03/25/2024 9:10 AM EST) HEPATITIS C ANTIBODY NON-REACT JEANNETTE NON-REACT JEANNETTE [facility] Comment: HCV antibody was non-reactive. There is no laboratory evidence of HCV infection. In most cases, no further action is required. However, if recent HCV exposure is suspected, a test for HCV RNA (test code 92364) is suggested. For additional information please refer to http://education.Nightpro/faq/AVA87z0 (This link is being provided for informational/ educational purposes only.) Blood Blood / Unknown 03/25/2024 9 :10 AM EST 03/25/2024 9:10 AM EST Narrative [employer] [facility] - 03/31/2024 4:16 PM EST FASTING:YES Daylin Manuel PA-C LAB - BLOOD DRAW Edited Res ult - Final [facility] [address] [address], [facility] [address] [address] * (ABNORMAL) LIPID PANEL (03/25/2024 9:10 AM EST) CHOLESTEROL, TOTAL 249(H) <200 mg/dL [facility] HDL CHOLESTEROL 73 > OR = 50 mg/dL [facility] TRIGLYCERIDES 99 <150 mg/dL [facility] LDL-CHOLESTEROL 155(H) 99 mg/dL (calc) [facility] Comment: Reference range: <100 Desirable range <100 mg/dL for primary prevention; <70 mg/dL for patients with CHD or diabetic patients with > or = 2 CHD risk factors. LDL-C is now calculated using the Rd-Damon calculation, which is a validated novel method providing better accuracy than the Friedewald equation in the estimation of LDL-C. Rd SS et al. BRYN. 2013;310(19): 6593-4722 (http://education.proteonomix.[employer]/faq/WEM983) CHOL/HDLC RATIO 3.4 <5.0 (calc) [facility] NON-HDL CHOLESTEROL 176(H) <130 mg/dL (calc) [facility] Comment: For patients with diabetes plus 1 major ASCVD risk factor, treating to a non-HDL-C goal of <100 mg/dL (LDL-C of <70 mg/dL) is considered a therapeutic option. Blood Blood / Unknown 03/25/2024 9 :10 AM EST 03/25/2024 9:10 AM EST Narrative [facility] - 03/31/2024 4:16 PM EST FASTING:YES Daylin Manuel PA-C LAB - BLOOD DRAW Final Resu lt [facility] [address] [place] [id number], [facility] [address] [place] [phone] from Last 3 Months or Most Recently Relevant to Health Maintenance Insurance [place] - [place] MEDICAID DENTAL [facility] Care Teams Manager Gyn Relationship Specialty Start Date End Date Daylin Manuel PA-C [address] [place] [phone] PCP - General Primary Care 03/11/24
== END 2024-09-04 14:28 | disposition home or self-care (01) ==
LOC: HO.ENCR 13:52
PROVIDERS: PCP Internal Medicine; Visit Provider Student in an Organized Health Care Education/Training Program
DX: E04.2 Nontoxic multinodular goiter (principal)
CPT/HCPCS: 99213

== ENCOUNTER → 2024-09-04 13:52 | Outpatient (BNVA) | payer OTHER, SELFPAY | PROVIDERS: PCP Internal Medicine; Visit Provider Student in an Organized Health Care Education/Training Program | DX: E04.2 Nontoxic multinodular goiter (principal) | CPT/HCPCS: 99212 ==

== ENCOUNTER 2024-09-26 11:13 | Outpatient (AMB) | payer OTHER, SELFPAY ==
[2024-09-26 11:29] VITALS: BP 110/70; PULSE 75; O2SAT 97; BMI 26.7
--- NOTE | 2024-09-26 11:29 | A.OFFPC_ITS ---
Vital Signs 09/26/24 11:29 Height 5 ft 4.57 in Weight 158 lb 4 oz BMI 26.7 BP 110/70 Blood Pressure Location Lt brachial Position Sitting Pulse 75 Pulse Source Pulse Oximeter Pulse Oximetry (%) 97 Oxygen Delivery Method Room Air Intake Visit Reasons: 3 Months f/u Taxi Driver Required: No Accompanied by: Self / Same As Patient Allergies No Known Allergies Allergy (Verified 09/26/24 12:03) Medication List - Last Reconciled 09/26/24 by Alejo Singh MD amlodipine 5 mg PO DAILY amoxicillin 2,000 mg PO ONCE chlorhexidine gluconate 0.12% 15 mL PO BID cholecalciferol (vitamin D3) 1,250 mcg PO QWEEK clobetasol 0.05% 1 appl topical DAILY cyanocobalamin (vitamin B-12) 1,000 mcg PO DAILY diclofenac sodium 1% 2 grams topical BID PRN duloxetine 60 mg PO DAILY estradiol 10 mcg vaginal 2XW hydrochlorothiazide 50 mg PO DAILY ibuprofen 800 mg PO TID PRN ketoconazole 2% 1 appl topical 3XW linaclotide (Linzess) 145 mcg PO QAM methocarbamol 500 mg PO DAILY PRN olmesartan 20 mg PO DAILY potassium chloride ER 20 mEq PO DAILY progesterone micronized 200 mg PO BEDTIME rosuvastatin 20 mg PO BEDTIME trazodone 100 mg PO BEDTIME PRN Tobacco use date assessed: 09/26/24 Fall risk assessment: No Falls in past year Last assessed Fall Risk: 09/26/24 Dental Screening Dental Screen Date: 09/26/24 Did you have a dental visit in the last 12 months?: Yes Did you have a dental problem in the last 6 months where you did not have access to dental care?: No Was dental information given to patient?: Patient has dentist HPI 3 Months f/u HPI Details Patient comes in today for her follow-up visit States that she feels okay She denies any headaches or dizziness Denies any chest pains, no increased shortness of breath No nausea/vomiting, no abdominal pain No change in bowel habits noted States that she will need her trazodone and vitamin-D Rx refilled She would also like to go over the results of her labs done a couple of months ago She is also currently requesting for referral to Dermatology for a general skin exam for skin cancer as well as referral to Gynecology to get her yearly metal grinder exam and Pap smear updated [facility] Medical History (Updated 09/29/24 @ 13:34 by Alejo Singh MD) Lumbar degenerative disc disease Overweight (BMI 25.0-29.9) Cardiac murmur Vitamin D deficiency Osteoarthritis Insomnia Constipation Multinodular thyroid Pure hypercholesterolemia Essential hypertension Surgical History History of carpal tunnel release of both wrists History of arthroplasty of right shoulder Hx of total knee replacement Family History Other Heart disease Hypertension Skin cancer Social History Housing: Other (living in sisters house currently ) Patient Tobacco Use Status: Former Tobacco user e-Cigarette/Vaping Use: Never Used service: No Current occupational status: retired Current occupational exposures/hazards: No Cognitive needs: No Hearing needs: No Vision needs: No Questionnaire PHQ-9 Over the last 2 weeks, how often have you been bothered by any of the following problems? 1. Little interest or pleasure in doing things: not at all 2. Feeling down, depressed, or hopeless: not at all 3. Trouble falling or staying asleep, or sleeping too much: not at all 4. Feeling tired or having little energy: not at all 5. Poor appetite or overeating: not at all 6. Feeling bad about yourself - or that you are a failure or have let yourself or your family down: not at all 7. Trouble concentrating on things, such as reading the newspaper or watching television: not at all 8. Moving or speaking so slowly that other people could have noticed. Or the opposite - being so fidgety or restless that you have been moving around a lot more than usual: not at all 9. Thoughts that you would be better off or of hurting yourself in some way: not at all Total score: 0 Depression Screening Interpretation: Negative Depression Screening Done: Yes 83212 - PHQ-9 Billing: Yes Source: Developed by Drs. Javier Hinkle, Elyssa Mahoney, Charles Panchal and colleagues, with an educational angelica from [employer]. Thrive Questionnaire Date Thrive assessed: 09/26/24 I am a: Patient What is your living situation today?: I do not have a steady places to live I am temporarily staying with others Within the past 12 months, did the food you bought not last and you didn't have the money to get more?: Sometimes True Within the past 12 months, did you worry whether your food would run out before you got money to buy more?: Sometimes True Do you have trouble paying for medicines?: No Do you have trouble getting transportation to medical appointments?: No Do you have trouble paying your heating and electricity bill?: No Do you have trouble taking care of your child, family member or friend?: No Do you have trouble with day-to-day activities such as bathing, preparing meals, shopping, managing finances, etc.?: No Are you currently unemployed and looking for a job?: No Are you interested in more education?: No Currently or been in a relationship where the following occur: No concerns reported THRIVE Score: 3 AUDIT C Alcohol Use Questionnaire (AUDIT-C) 1. How often do you have a drink containing alcohol?: Never 3. How often do you have six or more drinks on one occasion?: Never Total Score: 0 Score Reviewed/Action Taken: Yes JAMES-7 AMB Questionnaire JAMES-7 Date JAMES - 7 assessed: 09/26/24 Feeling nervous, anxious, or on edge: 0 = Not at all Not being able to stop or control worryin = Not at all Worrying too much about different things: 0 = Not at all Trouble relaxin = Not at all Being so restless that it is hard to sit still: 0 = Not at all Becoming easily annoyed or irritable: 0 = Not at all Feeling afraid as if something awful might happen: 0 = Not at all Total JAMES-7 score (0-4 normal; 5-9 mild; 10-14 moderate; 15-21 severe): 0 Source: Developed by Drs. Javier Hinkle, Elyssa Mahoney, Charles Panchal and colleagues, with an educational angelica from [employer]. Review of Systems Const Denies chills, Denies fatigue, Denies fever(s) and Denies headache(s) ENT Denies dysphagia, Denies dizziness, Denies otalgia, Denies headache(s), Denies neck pain, Denies odynophagia and Denies sore throat Card Denies chest pain, Denies palpitations and Denies dyspnea Resp Denies chest congestion, Denies cough and Denies dyspnea GI Denies abdominal pain, Denies constipation, Denies dysphagia, Denies heartburn, Denies diarrhea, Denies nausea, Denies odynophagia and Denies vomiting Denies difficulty voiding, Denies nocturia, Denies dysuria and Denies urinary urgency Musc Reports back pain (on and off) and Denies neck pain Skin/Breast Denies rash Neuro Denies dizziness and Denies headache(s) Endo Denies fatigue and Denies palpitations Physical exam (Primary Care) Vital Signs: Last Vital Signs Pulse 75 09/26/24 11:29 BP 110/70 09/26/24 11:29 Pulse Ox 97 09/26/24 11:29 Oxygen Delivery Method Room Air 09/26/24 11:29 BMI result Body Mass Index 26.7 Tobacco/Smoking Status: Tobacco use Status Tobacco use date assessed 09/26/24 09/26/24 11:43 Patient Tobacco Use Status Former Tobacco user 09/26/24 11:43 e-Cigarette/Vaping Use Never Used 09/26/24 11:43 PHQ-9: PHQ-9 Score PHQ-9: Total score 0 09/26/24 12:04 Depression Screening Interpretation: Negative Thrive Assessment: Date of Thrive Assessment Date Thrive assessed 09/26/24 09/26/24 11:43 Currently or been in a relationship where the following occur: No concerns reported Const General: no acute distress and alert HENMT Ears: TM's normal bilaterally and EAC's normal Throat: Yes posterior oropharynx normal and Yes tonsils normal (no TP congestion) Neck Neck: Yes supple and No lymphadenopathy Thyroid: Thyroid normal Resp Auscultation: clear to auscultation bilaterally, no rales and no wheezes Cardio Rate: regular rate Rhythm: regular rhythm Heart sounds: Murmur heart sound present systolic II/ GI Palpation (GI): Soft to palpation and nontender Auscultation: normal bowel sounds General: Yes no CVA tenderness Back/Spine/Pelvis Back: no CVA tenderness Thoracic/Lumbar Spine: lumbar spinal tenderness Skin Rashes: no rashes Extrem General: Yes no clubbing, cyanosis or edema Results Reviewed Results Reviewed: Laboratory Tests 08/01/24 08/01/24 08:43 Unknown WBC 6.7 Hgb 13.1 Hct 38.5 Plt Count 217 Sodium 144 Potassium 3.5 Creatinine 0.63 Estimated GFR > 60 Fasting Glucose 101 H Calcium 9.7 AST 23 ALT 19 Triglycerides 126 Cholesterol 214 H LDL Cholesterol, Calc 129 H HDL Cholesterol 60 Vitamin B12 582 25-OH Vitamin D Total 45.6 TSH 0.62 Ur Specific [place] >= 1.030 H Urine Protein Negative Urine Glucose (UA) Negative Urine Blood Negative Urine Nitrite Negative Ur Leukocyte Esterase Moderate (2+) H Coding Level of Care Code Est Pt Level 4 (85745) Diagnoses Decreased left ventricular systolic function I51.9 Essential hypertension I10 Pure hypercholesterolemia E78.00 Multinodular thyroid E04.2 Primary osteoarthritis involving multiple joints M15.0 Osteoarthritis location: multiple joints Osteoarthritis type: primary Degeneration of intervertebral disc of lumbar region with discogenic back pain M51.360 Disc-related pain type: discogenic back pain only History of CVA (cerebrovascular accident) Z86.73 History of benign brain tumor Z86.011 Constipation, unspecified constipation type K59.00 Constipation type: unspecified constipation type Vitamin D deficiency E55.9 Insomnia, unspecified type G47.00 Insomnia type: unspecified Overweight (BMI 25.0-29.9) E66.3 Skin exam, screening for cancer Z12.83 Cervical cancer screening Z12.4 Additional Codes PHQ-9 - 19149 - PHQ-9 Billing: Yes ([id number]) Assessment & Plan Assessment & Plan (1) Decreased left ventricular systolic function: Code(s): I51.9 - Heart disease, unspecified Category: Medical Plan: Her echocardiogram done a couple of months ago revealed a mildly decreased left ventricular systolic function, with a calculated ejection fraction of 50% by the biplane method. The also some aortic valve calcification but no significant stenosis with trace mitral valve regurgitation, trace tricuspid valve regurgitation and trace pulmonic valve regurgitation. There is also evidence of grade 1 diastolic dysfunction Patient is advised that her echocardiogram findings recently are similar to what her echo findings were back in 2021 with no significant changes Per request, we will refer her to cardiology for further evaluation and management (2) Essential hypertension: Code(s): I10 - Essential (primary) hypertension Category: Medical Plan: Reinforced low sodium diet - goal is systolic BP of 120 mm or less Continue Olmesartan 20 mg QD, HCTZ 50 mg QD and Amlodipine 5 mg QD Patient is reminded to continue monitoring her blood pressure regularly (3) Pure hypercholesterolemia: Code(s): E78.00 - Pure hypercholesterolemia, unspecified Category: Medical Plan: Results of her labs done a couple of months ago reviewed and discussed with patient - she is advised that her cholesterol levels are within normal limits but her LDL cholesterol is at the high end of normal at 129 mg/dl (should ideally be <100 mg/dl) Reinforced low cholesterol diet Continue Rosuvastatin 20 mg Q HS Will have patient recheck her labs and fasting lipids in 4 months for follow up (4) Multinodular thyroid: Code(s): E04.2 - Nontoxic multinodular goiter Category: Medical Plan: Patient reports (+) Hx of thyroid nodules and was going for yearly surveillance testing when she was residing in [place] Per her request, we referred her to endocrinology here at [facility] and she is now following up with Dr. Madrid regularly for her thyroid nodules (5) Osteoarthritis: Code(s): M19.90 - Unspecified osteoarthritis, unspecified site Category: Medical Qualifiers: Osteoarthritis location: multiple joints Osteoarthritis type: primary Qualified Code(s): M15.0 - Primary generalized (osteo)arthritis Plan: Involving multiple joints She is S/P total bilateral TKA as well as total arthroplasty of the right shoulder Continue Ibuprofen 800 mg TID PRN with food and Diclofenac 1% topical gel BID PRN She has not yet seen orthopedics here locally - will refer to orthopedics when needed (6) Lumbar degenerative disc disease: Code(s): M51.369 - Other intervertebral disc degeneration, lumbar region without mention of lumbar back pain or lower extremity pain Category: Medical Qualifiers: Disc-related pain type: discogenic back pain only Qualified Code(s): M51.360 - Other intervertebral disc degeneration, lumbar region with discogenic back pain only Plan: Reinforced activity and weight-lifting restrictions Continue Duloxetine 60 mg QD and Methocarbamol 500 mg QD PRN (7) History of CVA (cerebrovascular accident): Code(s): Z86.73 - Personal history of transient ischemic attack (TIA), and cerebral infarction without residual deficits Category: Medical Plan: Patient reports (+) recent CVA (twice), with mostly eye manifestations (?) with no residual neurologic or motor deficits Per request, she has been referred to Neurology here locally and she is scheduled to be seen by Neurology next month on 11/04/2024 (8) History of benign brain tumor: Code(s): Z86.011 - Personal history of benign neoplasm of the brain Category: Medical Plan: Head CT done back in July 2024 revealed NO intra or extra-axial mass midline shift mass effect or abnormal enhancement. (9) Constipation: Code(s): K59.00 - Constipation, unspecified Category: Medical Qualifiers: Constipation type: unspecified constipation type Qualified Code(s): K59.00 - Constipation, unspecified Plan: Patient is again encouraged on increased oral fluids and dietary fiber intake Continue Linzess 145 mcg Q AM (10) Vitamin D deficiency: Code(s): E55.9 - Vitamin D deficiency, unspecified Category: Medical Plan: Continue Vitamin D3 1250 mcg once a week (11) Insomnia: Code(s): G47.00 - Insomnia, unspecified Category: Medical Qualifiers: Insomnia type: unspecified Qualified Code(s): G47.00 - Insomnia, unspecified Plan: Sleep hygiene reinforced Continue Trazodone 100 mg Q HS PRN - Rx refilled (12) Overweight (BMI 25.0-29.9): Code(s): E66.3 - Overweight Category: Medical Plan: Reinforced diet/exercise as tolerated/lose weight (13) Skin exam, screening for cancer: Code(s): Z12.83 - Encounter for screening for malignant neoplasm of skin Category: Medical Plan: Per request, we will refer her to Dermatology for skin cancer evaluation (14) Cervical cancer screening: Code(s): Z12.4 - Encounter for screening for malignant neoplasm of cervix Category: Medical Plan: Will refer to the [facility] for her yearly gynecology exam and Pap smear Plan follow-up in 4 months Orders: Orders Lipid Panel 4 Months E78.00 - Pure hypercholesterolemia, unspecified Comprehensive [place]. Panel Fast 4 Months E78.00 - Pure hypercholesterolemia, unspecified Referrals Dermatology Referral Z12.83 - Encounter for screening for malignant neoplasm of skin Cardiology Referral I51.9 - Heart disease, unspecified DEBIT AGENT Referral Z12.4 - Encounter for screening for malignant neoplasm of cervix Medications: Changed From cholecalciferol (vitamin D3) 1,250 mcg PO QWEEK To cholecalciferol (vitamin D3) 1,250 mcg PO QWEEK 13 caps 1RF 3 months From trazodone 100 mg PO BEDTIME PRN insomnia To trazodone 100 mg PO BEDTIME PRN 90 tabs 0RF insomnia 90 days
--- OUTSIDE RECORDS SUMMARY | 2024-09-26 12:21 | XMS_ITS | Patient Health Record ---
Author Organization [facility] Address [address] [address] [place] [address] Care Team Providers Care Label Paster Name Role Phone Devon Millard MD Primary Care Provider Unavail able MARCELLA HWANG Unavailable [phone] [place] Gaitan MD Unavailable Unavailab le Allergies No Known Allergies Reason For Referral No Information Social History Tobacco Use: Social History Observation Description Date Details (start date - stop date) Former Smoker NA - NA Tobacco Use/Smoking Question Answer Notes Are you a: former smoker Problems Problem Type SNOMED Code ICD Code Onset Dates Problem Status W/U Status Risk Notes Problem Aneurysm (89489032) Aneurysm (I72.9) Active confirmed Problem Acquired aneurysm of cerebral artery (127001394) Acquired aneurysm of cerebral artery (I67.1) Active confirmed Plan Of Treatment Pending Test Test Name Order Date MRA : Head without contrast 05/18/2023 Insurance Providers Payer Name Payer Address Payer Phone Subscriber Number Group Number Insured Name Patient Relationship to Insured Coverage Start Date Coverage End Date Medicare [employer] [address] [address] [place] [phone] [id number] Alonso Nidia Self - patient is the insured Medical (General) History Medical History History ICD Code Brain Aneurysm Fibromyalgia Hypertension I10 Stroke Surgical History Surgery Date(Month/Year) knee surgery Carpal tunnel
--- OUTSIDE RECORDS SUMMARY | 2024-09-26 12:21 | XMS_ITS | Patient Health Record ---
Author Organization [facility] Address [address] [address] Care Team Providers Care Carbide Operator Name Role Phone Devon Sen MD Primary Care Provider Unavail able Nick Neal Unavailable [phone] TROY SEN MD Unavailable Unavailable Delmi Potter Unavailable [phone] Allergies No Known Allergies Reason For Referral Reason Req from spec, F/U o n 11/16/23 w/Dr. Nick Neal , CC marked urgent for time only Referred Organization [facility] [place] [facility] Referred Provider Nick Neal Referred Address [address] [place] [id number], General Notes Devon Sen 03:09:04 PM >.Okay to proceed with referral, thank you., Bob Galan 11/14/2023 06:58:56 PM >req from spec, pcp approved, sent to cm for review., Emili Cameron 11/15/2023 09:41:44 AM >Approved x 1 to [facility] preferred Specialist/Imaging Facility, please process. Thank you., Emili Ross Lpn, Supervisor Assembly, Bob Galan 11/15/2023 11:27:44 AM >referral/auth faxed to spec Dr. Nick Roman appt 11/16/23, faxed manually to [phone]. Clinical Notes Emili Cameron 03/2023 09:41:40 AM >+++++PLEASE FAX CONSULT NOTES TO PCP OFFICE AFTER PATIENTS VISIT. THANK YOU.+++++, FAX #: [phone]. Referral Priority Urgent Referral Appointment Date 11/16/2023 Reason 1 FU Referring Provider First Name Devon Referring Provider Last Name [place] Referring Provider Speciality Internal M edicine Referred Organization [facility] [place] [facility] Referred Provider Ncik Neal Referred Address [address] [place] [address],[place],[address], Referral Priority Routine Medications Medication SIG (Take, [...] Risk Notes Problem Diverticular disease of colon (646662530) Diverticulosis large intestine w/o perforation or abscess w/o bleeding (K57.30) Active confirmed Problem Adenomatous polyp of rectum (7922739536711) Adenomatous polyp of rectum (D12.8) Active confirmed Problem Benign neoplasm of colon (01419215) Colon adenoma (D12.6) Active confirmed Problem History of polyp of colon (828724309) 1. Personal history of colon polyps (Z86.010) Active confirmed Vital Signs Blood pressure diastolic 88 mm Hg 11/16/2023 Weight-kg 75.3 kg 11/16/2023 Height 66 in 11/16/2023 Blood pressure systolic 157 mm Hg 11/16/2023 Weight 166 lbs 11/16/2023 BMI 26.79 kg/m2 11/16/2023 Encounters Encounter Location Date Provider Diagnosis [facility] [address] [place] [address]. [place], [place] [address] 11/16/2023 Delmi Abbey Adenomatous polyp of rectum D12.8 ; Colon adenoma D12.6 and Diverticulosis large intestine w/o perforation or abscess w/o bleeding K57.30 Assessments Encounter Date Diagnosis (ICD Code) Assessment Notes Treatment Notes Treatment Clinical Notes Section Notes 11/16/2023 Adenomatous polyp of rectum (ICD-10 - [...] CALL YOUR PRIMARY PROVIDER OR GI CLINIC Plan Of Treatment Pending Test Test Name Order Date Gastrointestinal 08/28/2023 Future Test Test Name Order Date Colonoscopy 06/30/2023 Cardiac Clearance 06/30/2023 Insurance Providers Payer Name Payer Address Payer Phone Subscriber Number Group Number Insured Name Patient Relationship to Insured Coverage Start Date Coverage End Date [employer] [address] [address] [place], [place] [id number] Self - patient is the insured Medical (General) History Medical History History ICD Code High Blood Pressure High Cholesterol Implantable loop recorder Stroke Brain Aneurysm Surgical History Surgery Date(Month/Year) Shoulder replacement (Left) Knee Replacement
--- OUTSIDE RECORDS SUMMARY | 2024-09-26 12:21 | XMS_ITS | Clinical Summary ---
Author Organization [facility] Address [address] [place] [address] Phone Care Team Providers Care Shank Cementer Hand Name Role Phone Daylin Manuel Primary Care Provider [phone] Social History Tobacco Use Types Packs/Day Years [...] Insurance MEDICAID - [place] MEDICARE Care Teams Shank Cementer Hand Relationship Specialty Start Date End Date Daylin Manuel PA [facility] [place] [address] PCP - General 04/09/24
== END 2024-09-26 12:23 | disposition home or self-care (01) ==
LOC: HO.HMCH 11:14
PROVIDERS: PCP Internal Medicine; Visit Provider Internal Medicine
DX: I51.9 Heart disease, unspecified (principal); I10 Essential (primary) hypertension; E78.00 Pure hypercholesterolemia, unspecified; E04.2 Nontoxic multinodular goiter; M15.0 Primary generalized (osteo)arthritis; M51.360 Other intervertebral disc degeneration, lumbar region with discogenic back pain only; Z86.73 Personal history of transient ischemic attack (TIA), and cerebral infarction without residual deficits; Z86.011 Personal history of benign neoplasm of the brain; K59.00 Constipation, unspecified; E55.9 Vitamin D deficiency, unspecified; G47.00 Insomnia, unspecified; E66.3 Overweight; Z12.83 Encounter for screening for malignant neoplasm of skin; Z12.4 Encounter for screening for malignant neoplasm of cervix

== ENCOUNTER → 2024-09-26 11:13 | Outpatient (BNVA) | payer OTHER, SELFPAY | PROVIDERS: PCP Internal Medicine; Visit Provider Internal Medicine | DX: I10 Essential (primary) hypertension (principal); E78.00 Pure hypercholesterolemia, unspecified; I51.9 Heart disease, unspecified; E04.2 Nontoxic multinodular goiter; M15.0 Primary generalized (osteo)arthritis; M51.360 Other intervertebral disc degeneration, lumbar region with discogenic back pain only; K59.00 Constipation, unspecified; E55.9 Vitamin D deficiency, unspecified; G47.00 Insomnia, unspecified; E66.3 Overweight; Z86.011 Personal history of benign neoplasm of the brain; Z86.73 Personal history of transient ischemic attack (TIA), and cerebral infarction without residual deficits; Z68.26 Body mass index [BMI] 26.0-26.9, adult | CPT/HCPCS: 96127; 99212 ==

== ENCOUNTER 2024-11-04 10:23 | Outpatient (AMB) | payer OTHER, MEDICAID, SELFPAY ==
--- OUTSIDE RECORDS SUMMARY | 2023-07-27 06:00 | XMS_ITS ---
Author Organization [facility] Address [address] [place] [address] Care Team Providers Care Topline Beading Machine Tender Name Role Phone Mckinley NOLEN, Devon Primary Care Provider Unavail able Nick Neal Unavailable [phone] MCKINLEY NOLEN, TROY Unavailable Unavailable REASON FOR VISIT daniel for colon Encounters Encounter Location Date Provider Diagnosis [facility] [address] [address] 07/27/2023 Nick Neal Plan Of Treatment No Information Progress Notes * YOMAIRA CUETOSDOB:1950 (74 yo F)Acc No.[id number]:07/27/2023 Patient: KAILA BROWN Provider: Phil Neal MD :1950 A ge:72 Y S ex:Female Date:07/27/2023 Address[facility] [address] [facility] Pcp:Devon Millard MD Subjective: * Chief Complaints: * E va for colon * Electronic signature of Jamie Neal MD on 11/04/2024 at 12:41 PM EDT Sign off status: Pending * Provider: Phil Neal MD Date: 0 07/27/2023 Generated for Printi ng/Faxing/eTransmitting on: 0 11/04/2024 12:41 PM EDT
--- NOTE | 2024-11-04 10:24 | MHC.OFFVIS ---
Vital Signs 11/04/24 10:26 Height 5 ft 4.47 in Weight 160 lb 2 oz BMI 27.1 BP 132/80 Blood Pressure Location Rt brachial Position Sitting Pulse 69 Pulse Source Pulse Oximeter Pulse Oximetry (%) 98 Oxygen Delivery Method Room Air Intake Visit Reasons: INP-hx bening neoplasma brain Intake Note: Personal history of transient ischemic attack (TIA), and cerebral infarction without residual deficits Engineer Intern Required: No Accompanied by: Self / Same As Patient Allergies No Known Allergies Allergy (Verified 11/04/24 10:30) HPI Comments Details: [id number] Nicol [place] intrepreter 74y/o female comes for neurological evaluation .she moved from [place] and says needs neurological f/u - 3 aneurysms , headaches and a CVA 2 years ago. Her CVA 2 years ago she had Right sided weakness - resolved. she was also found to have incidental aneurysms and needs f/u MRA she also has headaches- very infrequent - but severe so she goes to ER. Last headache was Dec 2023.she has light sensitivity , usually starts as a unilateral eye pain, and spreads to temperoparietal region. she denies nausea. she occasional has blurred vision. she also has sleep apnea- but could not tolerate CPAP [facility] Medical History (Updated 11/04/24 @ 11:03 by Pamela Marquez MD) Obstructive sleep apnea Migraine Cerebral aneurysm Lumbar degenerative disc disease Overweight (BMI 25.0-29.9) Cardiac murmur Vitamin D deficiency Osteoarthritis Insomnia Constipation Multinodular thyroid Pure hypercholesterolemia Essential hypertension Surgical History History of carpal tunnel release of both wrists History of arthroplasty of right shoulder Hx of total knee replacement Family History Other Heart disease Hypertension Skin cancer Social History Housing: Other (living in sisters house currently ) Patient Tobacco Use Status: Former Tobacco user e-Cigarette/Vaping Use: Never Used service: No Current occupational status: retired Current occupational exposures/hazards: No Cognitive needs: No Hearing needs: No Vision needs: No Physical Exam Vital Signs: Last Vital Signs Pulse 69 11/04/24 10:26 BP 132/80 11/04/24 10:26 Pulse Ox 98 11/04/24 10:26 Oxygen Delivery Method Room Air 11/04/24 10:26 BMI result Body Mass Index 27.1 Const General: cooperative, healthy appearing, comfortable and no acute distress Nutritional Appearance: average body habitus Orientation/consciousness: patient oriented x3 Eyes Pupils: Equal, round and reactive pupils present Neuro General: patient oriented x3, gait normal, tone normal, moves all extremities and no focal motor deficits Cranial nerves: Yes Facial sensation intact/muscles of mastication intact, Yes Equal, round and reactive pupils present, Yes Bilaterally intact EOM present, Yes Nystagmus not present, Yes Normal facial strength present, Yes Midline tongue present, Yes Symmetric palate elevation present, Yes Ability to bilaterally rotate head present and Yes Ability to bilaterally elevate shoulders present Cognition (Neuro): normal cognition Gait exam (Neuro): Normal gait present Motor exam (neuro): 5/5 motor strength present throughout and Normal motor muscle tone present throughout Deep tendon reflexes (DTR's): Right triceps reflex intensity grade: 1+, Left triceps reflex intensity grade: 1+, Rt Biceps (C5, C6): 1+, Left biceps reflex intensity grade: 1+, Right brachioradialis reflex intensity grade: 1+, Left brachioradialis reflex intensity grade: 1+, Right patellar reflex intensity grade: 1+ and Left patellar reflex intensity grade: 1+ Coordination: [id number] test normal Assessment & Plan Assessment & Plan (1) Cerebral aneurysm: Code(s): I67.1 - Cerebral aneurysm, nonruptured Category: Medical (2) History of CVA (cerebrovascular accident): Code(s): Z86.73 - Personal history of transient ischemic attack (TIA), and cerebral infarction without residual deficits Category: Medical (3) Migraine: Code(s): G43.909 - Migraine, unspecified, not intractable, without status migrainosus Category: Medical (4) Obstructive sleep apnea: Code(s): G47.33 - Obstructive sleep apnea (adult) (pediatric) Category: Medical Plan Continue aspirin 81mg qd MRA brain - to monitor aneurysms she will call with name of her PRN medication for migraines - she wants to continue and declines any new medications. Home sleep test to reevaluate sleep apnea. Orders: Orders MR angio head wo/w con Today I67.1 - Cerebral aneurysm, nonruptured RT home sleep study Today G47.00 - Insomnia, unspecified, G47.33 - Obstructive sleep apnea (adult) (pediatric) Coding Level of Care Code New Pt Level 4 (00206) Complex EM visit Add On G2211 Diagnoses Cerebral aneurysm I67.1 History of CVA (cerebrovascular accident) Z86.73 Migraine G43.909 Obstructive sleep apnea G47.33
[2024-11-04 10:26] VITALS: BP 132/80; PULSE 69; O2SAT 98; BMI 27.1
--- OUTSIDE RECORDS SUMMARY | 2024-11-04 12:42 | XMS_ITS | Encounter Summary ---
Author Organization [facility] Address [address] [place] [address] Encounters * CPT with Medical instED at [facility] on 2024-09-05 { reasonForRequest : Patient has left hand swelling and painful for 3 days, weak. ", patientReports : , denies :[ Harvey Flash, circumferential harvey , Harvey reported with black tissue to the area , Open skin area after a fall with uncontrolled bleeding , Abscess/infection with streaking noted, presence of fever or without , History of cellulitis, isolated redness noted , Fever and chills noted in setting of wound , Rash , Bites -bugs, spider , Abscess&quot ;], chiefComplaints : Extremity Swelling , pmh : , allergies : No Known Drug Allergies , otherAllergies : , painAssessment : Level 8 out of 10 , visitOutcome : , additionalComments : 74 y.o female complains of Extremity Swelling\n\nPt calling for left hand thatis swollen and painful. \nThe pt reported that it is not her whole hand but her fingers. \nShe has not had any falls or injuries. \nthe area is not red or warm to the touch. \nShe denies any repetitive movements of the hand. \nShe does not have gout or arthritis. \nShe took 800mg of ibuprofen but did not help . \nShe is at 8-9/10 pain level \n\nI provided information on the mobile health providerresponse time and advised the patient and/or caregiver to monitor reported signs and symptoms. I discussed the warning signs of when to seek emergency care. } Was dispatched for a 74 Y/O female complaining of left wrist pain. [facility] PT was found sitting on her couch. PT is A/Ox4. PT reported since Monday she has had pain in her left thumb and does not know why. PT vitals were obtained, and an assessment was performed. PT HR was noted to go from 80BPM to 130BPM, a 12 lead EKG was obtained, EKG was forwarded to the [facility]. [facility] was contacted, [facility] suggested sending the PT to the ED for a cardiac workup due to the PT having abnormal EKG. PT understood and agreed. PT denied any chest pain, SOB, dizziness, or nausea. PT did complain of lower back pain along with her thumb pain. 911 was contacted, [facility] arrived on scene and transported the PT to [facility]. [facility] cleared. IV_(FLUIDS_AND/OR_MEDICATION), MEDICATION_IM, ORAL_MEDICATION, WOUND_CARE, ORTHOSTATIC_VITAL_SIGNS Written by Medical instED on 2024-09-05
--- OUTSIDE RECORDS SUMMARY | 2024-11-04 12:42 | XMS_ITS | Clinical Summary ---
Author Organization [facility] Address [address] [place] [address] Care Team Providers Care Clay Molder Name Role Phone Daylin Manuel PA-C Primary Care Provider [phone] Source Comments PLEASE NOTE, if this patient is a minor, it may be UNLAWFUL to discuss sensitive information that is contained in these records (such as FAMILY PLANNING, MENTAL HEALTH or SUBSTANCE ABUSE) with the minor patient's parent or other person without the patient's specific authorization.[facility] Allergies No known active allergies Medications aspirin [address] tablet aspirin 81 mg tablet,delaye d release TAKE ONE TABLET BY MOUTH ONCE [...] daily Active dextran 70-hypromellose (TEARS RENEWED) ophthalmic solutionIndicatio ns:Subconjunctiva l hemorrhage of left eye Place 1 Drop into both eyes as needed for dry eyes 15 mL 1 04/08/19 25 Active amoxicillin (AMOXIL) 500 mg capsuleIndication s:Need for prophylactic antibiotic Take four ($) capsules by mouth one (1) hour before dental appointment. 4 Capsule 04/18/19 25 Active chlorhexidine (PERIDEX) 0.12 % solutionIndicatio ns:Stage 2 grade A generalized periodontitis per AAP/EFP 2017 classification Swish and spit 15 mL 2 (two) times daily 473 mL 04/18/19 25 Active estradioL [address] 10 mcg vaginally 2 times a week (This is one tablet) 24 Tablet 4 04/23/19 25 2025 Active cholecalciferol, vitamin D3, (VITAMIN D3) 1,250 mcg (50,000 unit) capsule Take 1 Capsule by mouth once a week 4 Capsule 1 05/01/19 25 Active rosuvastatin (CRESTOR) 20 mg tablet Take 1 Tablet by mouth nightly at bedtime 90 Tablet 1 05/01/19 25 Active diclofenac sodium (VOLTAREN) 1 % gel APPLY TOPICALLY TO THE AFFECTED AREA TWICE DAILY 100 g 2 10/16/19 25 Active cyanocobalamin (VITAMIN B-12) 1,000 mcg tablet TAKE 1 TABLET BY MOUTH EVERY DAY 90 Tablet 1 10/16/19 25 Active cyanocobalamin (VITAMIN B-12) 1,000 mcg tablet Take 1 Tablet by mouth daily 90 Tablet 1 05/01/19 25 2024 Discontinued diclofenac sodium (VOLTAREN) 1 % gel Apply topically 2 (two) times daily 100 g 2 05/01/19 25 2024 Discontinued Active Problems Problem Noted Date Diagnosed Date Bilateral thumb pain 09/20/2024 Overview (09/20/2024): 09/19/2024 - [facility]o - [facility] - Dx: Bilateral hand pain - Dx: Bilateral thumb pain; Primary Osteoarthritis of both first carpometacarpal joints - splints - Left thumb CMC joint cortisone injection H/O complete eye exam 04/17/2024 Overview (04/17/2024): 04/16/2024 - [facility] - Ophthalmology - Imp/Plan: [...] heart rate response during stress OHHVI Primary Surgical Instrument Mechanic: Jony Hernandez DO, PhD, [facility] - 01/06/24 ASSESSMENT AND PLAN 1. [...] intact. Left ventricular hypertrophy 04/08/2024 Overview (04/08/2024): [facility] Primary Surgical Instrument Mechanic: Jony Hernandez DO, PhD, [facility] - 01/06/24 ASSESSMENT AND PLAN 1. [...] dry and intact. CVA (cerebral vascular accident) (CMS & HHS-HCC) 04/08/2024 Primary hypertension 04/08/2024 Nonrheumatic pulmonary valve insufficiency 04/08 Overview (04/08/2024): [facility] Primary Surgical Instrument Mechanic: Jony Hernandez DO, PhD, [facility] - 01/06/24 ASSESSMENT AND PLAN 1. History of loop recorder (Primary) Overview: 04/11/2022- [employer] 01/03/2024 Explant 2. Amaurosis fugax 3. Primary hypertension ([facility]/HCC) 4. LVH (left ventricular hypertrophy) 5. Nonrheumatic [...] mitral valve regurgitation 04/08/19 25 Overview (04/08/2024): [facility] Primary Surgical Instrument Mechanic: Jony Hernandez DO, PhD, [facility] - 01/06/24 ASSESSMENT AND PLAN 1. [...] History of loop recorder 04/08/2024 Overview (04/08/2024): [facility] Primary Surgical Instrument Mechanic: Jony Hernandez DO, PhD, [facility] 01/06/24 ASSESSMENT AND PLAN 1. History [...] (03/26/2024): 05/31/2023 - [facility] - Note: Assessment/Plan: 1) Menopausal and female climacteric states 2) postmenopausal atrophic vaginitis. Rx: Estradiol 10 mcg - apply per vagina daily for 2 weeks then 2 times a week; Progesterone 200 mg - take 1 capsule PO QHS F/u 6 months Menopausal and female climacteric states 025 Overview (03/26/2024): 05/31/2023 - [facility] - Note: Assessment/Plan: 1) Menopausal and female climacteric states 2) postmenopausal atrophic vaginitis. Rx: Estradiol 10 mcg - apply per vagina daily for 2 weeks then 2 times a week; Progesterone 200 mg - take 1 capsule PO QHS F/u 6 months Right rotator cuff tear 03/26/2024 Overview (10/01/2024): 09/26/2024 - [facility] - Dx: Right shoulder Pain s/p Total replacement of right shoulder - f/u PT 07/06/2023 - [facility] - Note: Assessment/Plan: - Right rotator cuff tear - history of rotator cuff repair 01/2022 - MRI 04/2023 reporting tendinosis, full-thickness rotator cuff tearing and arthritis. - Osteoarthritis of right shoulder - recommend glucosamine - heat/stretching laying down Osteoarthritis of right shoulder 03/26/2024 Overview (03/26/2024): 07/06/2023 - [facility] - Note: Assessment/Plan: - Right [...] reverse total shoulder arthroplasty on 10/06/2023 - [facility] GERD (gastroesophageal reflux [...] By TI-RADS criteriaf/u US in one year Family History Medical History Relation Name Comments [...] Bone Density Screening 2017 Falls Prevention 2017 Iji-[id number]-14 ( - season) 2024 Imm-Influenza (#1) 2024 11/23/2020 Lipid Screening 03/25/2025 03/25/2024 Dental BW 04/19/2025 04/17/2024 Dental Examination 04/19/2025 04/17/2024 Tobacco Screening 04/30/2025 04/30/2024 Dental FMX/Pano 04/19/2029 04/17/2024 Alcohol and Drug Screen Completed 03/20/2024 Depression Annual Screen Completed 03/20/2024 Hepatitis C Screening Completed 03/25/2024 Procedures Procedure Name Priority Date/Time Associated Diagnosis Comments REFERRAL SCANNED DOCUMENT 09/26/2024 3:00 AM EDT REFERRAL TO ORTHOPEDICS Routine 09/19/2024 3:00 AM EDT Chronic right shoulder pain Post-traumatic osteoarthritis of right shoulder Tear of right rotator cuff, unspecified tear extent, unspecified whether traumatic INTRAORAL - COMP SERIES OF RADIOGRAPHIC IMAGES [...] Recently Relevant to Health Maintenance Results * REFERRAL SCANNED DOCUMENT (09/26/2024 3:00 AM EDT) 09/26/2024 3:00 AM EDT us Daylin Manuel PA-C SCAN REFERRAL Final Resul t * REFERRAL TO ORTHOPEDICS (09/19/2024 3:00 AM EDT) 09/19/2024 3:00 AM EDT us Daylin Manuel PA-C REFERRAL Final Resul t * HEPATITIS C AB W/RFLX HCV RNA, QT, RT PCR (03/25/2024 9:10 AM EST) HEPATITIS C ANTIBODY NON-REACT JEANNETTE NON-REACT JEANNETTE [facility] Comment: HCV antibody was non-reactive. There is no laboratory evidence of HCV infection. In most cases, no further action is required. However, if recent HCV exposure is suspected, a test for HCV RNA (test code 89338) is suggested. For additional information please refer to http://education.[employer]/faq/CFI46c7 (This link is being provided for informational/ educational purposes only.) Blood Blood / Unknown 03/25/2024 9 :10 AM EST 03/25/2024 9:10 AM EST Narrative [facility] - 03/31/2024 4:16 PM EST FASTING:YES Daylin Manuel PA-C LAB - BLOOD DRAW Edited Res ult - Final Performing Organization Address City/[facility]/ZIP Co de Phone Number [facility] [address] [address], [facility] [address] [phone] * (ABNORMAL) LIPID PANEL (03/25/2024 9:10 AM EST) CHOLESTEROL, TOTAL 249(H) <200 mg/dL [facility] HDL CHOLESTEROL 73 > OR = 50 mg/dL [facility] TRIGLYCERIDES 99 <150 mg/dL [facility] LDL-CHOLESTEROL 155(H) 99 mg/dL (calc) [facility] Comment: Reference range: <100 Desirable range <100 mg/dL for primary prevention; <70 mg/dL for patients with CHD or diabetic patients with > or = 2 CHD risk factors. LDL-C is now calculated using the Rd-Nelson calculation, which is a validated novel method providing better accuracy than the Friedewald equation in the estimation of LDL-C. Rd SS et al. BRYN. 2013;310(19): 1066-7326 (http://education.[employer]/faq/GIV338) CHOL/HDLC RATIO 3.4 <5.0 (calc) [facility] NON-HDL CHOLESTEROL 176(H) <130 mg/dL (calc) [facility] Comment: For patients with diabetes plus 1 major ASCVD risk factor, treating to a non-HDL-C goal of <100 mg/dL (LDL-C of <70 mg/dL) is considered a therapeutic option. Blood Blood / Unknown 03/25/2024 9 :10 AM EST 03/25/2024 9:10 AM EST Narrative [facility] - 03/31/2024 4:16 PM EST FASTING:YES us Daylin Manuel PA-C LAB - BLOOD DRAW Final Resu lt Performing Organization Address City/[facility]/ZIP Co de Phone Number [facility] [address] [address], [facility] [address] [phone] from Last 3 Months or Most Recently Relevant to Health Maintenance Insurance [place] MEDICAID [place] MEDICAID DENTAL [facility] Care Teams Clay Molder Relationship Specialty Start Date End Date Daylin Manuel PA-C [facility] [place] [address] PCP - General Primary Care 03/11/24
--- OUTSIDE RECORDS SUMMARY | 2024-11-04 12:42 | XMS_ITS | Patient Health Record ---
Author Organization [facility] Address [address] [address] [place] [address] Care Team Providers Care Contract Technician Name Role Phone Devon Millard MD Primary Care Provider Unavail able MARCELLA HWANG Unavailable [phone] [place] Gaitan MD Unavailable Unavailab le Allergies No Known Allergies Reason For Referral No Information Social History Tobacco Use: Social History Observation Description Date Details (start date - stop date) Former Smoker NA - NA Tobacco Use/Smoking Question Answer Notes Are you a: former smoker Problems Problem Type SNOMED Code ICD Code Onset Dates Problem Status W/U Status Risk Notes Problem Aneurysm (12598155) Aneurysm (I72.9) Active confirmed Problem Acquired aneurysm of cerebral artery (899191628) Acquired aneurysm of cerebral artery (I67.1) Active confirmed Plan Of Treatment Pending Test Test Name Order Date MRA : Head without contrast 05/18/2023 Insurance Providers Payer Name Payer Address Payer Phone Subscriber Number Group Number Insured Name Patient Relationship to Insured Coverage Start Date Coverage End Date Medicare [employer] [address] [address] [place] [address] [id number] Gavin Nidia Self - patient is the insured Medical (General) History Medical History History ICD Code Brain Aneurysm Fibromyalgia Hypertension I10 Stroke Surgical History Surgery Date(Month/Year) knee surgery Carpal tunnel
--- OUTSIDE RECORDS SUMMARY | 2024-11-04 12:42 | XMS_ITS | Patient Health Record ---
Author Organization [facility] Address [address] [address] Care Team Providers Care Supervisor Pipelines Name Role Phone Devon Sen MD Primary Care Provider Unavail able Nick Neal Unavailable [phone] TROY SEN MD Unavailable Unavailable Delmi Potter Unavailable [phone] Allergies No Known Allergies Reason For Referral Reason Req from spec, F/U o n 11/16/23 w/Dr. Nick Neal , CC marked urgent for time only Referred Organization [id number] [place] Referred Provider Nick Neal Referred Address [address] [place] [id number], General Notes Devon Sen 03:09:04 PM >.Okay to proceed with referral, thank you., Bob Galan 11/14/2023 06:58:56 PM >req from spec, pcp approved, sent to cm for review., Emili Cameron 11/15/2023 09:41:44 AM >Approved x 1 to [facility] preferred Specialist/Imaging Facility, please process. Thank you., Emili Ross Lpn, Diamond Picker, Bob Galan 11/15/2023 11:27:44 AM >referral/auth faxed to spec Dr. Nick Roman appt 11/16/23, faxed manually to [phone]. Clinical Notes Emili Cameron 03/2023 09:41:40 AM >+++++PLEASE FAX CONSULT NOTES TO PCP OFFICE AFTER PATIENTS VISIT. THANK YOU.+++++, FAX #: [phone]. Referral Priority Urgent Referral Appointment Date 11/16/2023 Reason 1 FU Referring Provider First Name Devon Referring Provider Last Name [place] Referring Provider Speciality Internal M edicine Referred Organization [facility] [place] Referred Provider Nick Neal Referred Address [address] [place] [address],[place], [place],[address], Referral Priority Routine Medications Medication SIG (Take, Route, Frequency, Duration) Notes Start Date End Date Status Olmesartan Medoxomil-HCTZ 40-12.5 MG Tablet 1 tablet Orally Once a day Active PEG-3350/Electrolytes 236 GM Solution Reconstituted ML as directed Orally Day before the procedure; Duration: 1 days 07/31/2023 Not-Taking/PRN amLODIPine Besylate 10 MG Tablet 1 tablet Orally Once a day Active Rosuvastatin Calcium 20 MG Tablet 1 tablet Orally Once a day Active hydroCHLOROthiazide 25 MG Tablet 1 tablet in the morning Orally Once a day Active Aspirin 81 81 MG Tablet Chewable 1 tablet Orally Once a day Active Social History Tobacco Use: Social History Observation Description Date Details (start date - stop date) Never Smoker NA - NA Social History Drugs/Alcohol(Archived) Social Info Question Answer Notes Alcohol Screen (Audit-C) Did you have a drink containing alcohol in the past year? No Points 0 Interpretation Negative Drugs Have you used drugs other than those for medical reasons in the past 12 months? No Caffeine Intake: 1-2 cups per day Tobacco Use: Social Info Question Answer Notes Tobacco Control (Standard) Tobacco use: Nonsmoker Problems Problem Type SNOMED Code ICD Code Onset Dates Problem Status W/U Status Risk Notes Problem Diverticular disease of colon (213286925) Diverticulosis large intestine w/o perforation or abscess w/o bleeding (K57.30) Active confirmed Problem Adenomatous polyp of rectum (6915464897116) Adenomatous polyp of rectum (D12.8) Active confirmed Problem Benign neoplasm of colon (24323856) Colon adenoma (D12.6) Active confirmed Problem History of polyp of colon (362757650) 1. Personal history of colon polyps (Z86.010) Active confirmed Vital Signs Blood pressure diastolic 88 mm Hg 11/16/2023 Weight-kg 75.3 kg 11/16/2023 Height 66 in 11/16/2023 Blood pressure systolic 157 mm Hg 11/16/2023 Weight 166 lbs 11/16/2023 BMI 26.79 kg/m2 11/16/2023 Encounters Encounter Location Date Provider Diagnosis [id number] [place] [address] [place], [place] [address] [address] 11/16/2023 Delmi Potter Adenomatous polyp of rectum [...] Insured Coverage Start Date Coverage End Date [facility] PL[facility] MEDICARE REPLACEMET [address] [address] [place], [place] [id number] KAILA CUETO Self - patient is the insured 4 Medical (General) History Medical History History ICD Code High Blood Pressure High Cholesterol Implantable loop recorder Stroke Brain Aneurysm Surgical History Surgery Date(Month/Year) Knee Replacement Shoulder replacement (Left)
--- OUTSIDE RECORDS SUMMARY | 2024-11-04 12:42 | XMS_ITS | Clinical Summary ---
Author Organization [facility] Address [address] [place] [address] Phone Care Team Providers Care Mold Repairer Name Role Phone Daylin Manuel Primary Care Provider [phone] Encounters Date Type Department Care Team Description 10/28/2024 Telephone [place] [address] [address] [place] [address] Physician, Pcp Unknown from Last 3 Months Social History Tobacco [...] 2002 Zoster Vaccines (1 of 2) 2002 Depression Screening 02/14/2024 Colorectal Cancer Screening: Colonoscopy 04/10/2024 Falls Risk Assessment 04/10/2024 Hepatitis C Screening 04/10/2024 Medicare Annual Wellness Visit 04/10/2024 Osteoporosis Screening (Bone Density Screening) 04/10/2024 Social Influencers of Health Screening 04/10/2024 COVID-19 Vaccine ( - 2023-2 5 season) 2024 Influenza Vaccine (#1) 2024 RSV Immunization Adult [...] Insurance MEDICAID - [place] MEDICARE Care Teams Mold Repairer Relationship Specialty [place] [address] [place] [id number] PCP - General 04/09/24
--- OUTSIDE RECORDS SUMMARY | 2024-11-04 12:42 | XMS_ITS | Continuity of Care Document ---
Author Name instED, Medical Address [address] [place] [address] Organization Unknown Address [address] [place] [address] Medications No known medications Problems No known problems
== END 2024-11-04 11:09 | disposition home or self-care (01) ==
PROVIDERS: PCP Internal Medicine; Visit Provider Psychiatry & Neurology Neurology
DX: I67.1 Cerebral aneurysm, nonruptured (principal); Z86.73 Personal history of transient ischemic attack (TIA), and cerebral infarction without residual deficits; G43.909 Migraine, unspecified, not intractable, without status migrainosus; G47.33 Obstructive sleep apnea (adult) (pediatric)
CPT/HCPCS: 99204; G2211

== ENCOUNTER → 2024-11-04 10:23 | Outpatient (BNVA) | payer OTHER, SELFPAY | PROVIDERS: PCP Internal Medicine; Visit Provider Psychiatry & Neurology Neurology | DX: I67.1 Cerebral aneurysm, nonruptured (principal); G43.909 Migraine, unspecified, not intractable, without status migrainosus; G47.33 Obstructive sleep apnea (adult) (pediatric); Z86.73 Personal history of transient ischemic attack (TIA), and cerebral infarction without residual deficits | CPT/HCPCS: 99202 ==

== ENCOUNTER 2024-11-06 09:38 | Outpatient (REF) | payer OTHER, SELFPAY ==
--- OUTSIDE RECORDS SUMMARY | 2023-07-27 06:00 | XMS_ITS ---
Author Organization [facility] Address [address] [place] [address] Care Team Providers Care Rivet Sorter Name Role Phone Mckinley NOLEN, Devon Primary Care Provider Unavail able Nick Neal Unavailable [phone] MCKINLEY NOLEN, TROY Unavailable Unavailable REASON FOR VISIT daniel for colon Encounters Encounter Location Date Provider Diagnosis [facility] [address] [address] 07/27/2023 Nick Neal Plan Of Treatment No Information Progress Notes * YOMAIRA CUETOSDOB:1950 (74 yo F)Acc No.[id number]:07/27/2023 Patient: KAILA BROWN Provider: Phil Neal MD :1950 A ge:72 Y S ex:Female Date:07/27/2023 Address:[facility] [address] [facility] Pcp:Devon Millard MD Subjective: * Chief Complaints: * E va for colon * Electronic signature of Jamie Neal MD on 11/06/2024 at 11:34 AM EDT Sign off status: Pending * Provider: Phil Neal MD Date: 0 07/27/2023 Generated for Printi ng/Faxing/eTransmitting on: 0 11/06/2024 11:34 AM EDT
--- NOTE | 2024-11-06 10:15 | PM.PROC ---
Brief Operative Note Date of procedure: 11/06/24 Pre-op diagnosis: right isthmus 3.7 cm thyroid nodule FNA biopsy Post-op diagnosis: same Procedure: THYROID FINE NEEDLE ASPIRATION PROCEDURE NOTE ? PROCEDURE PERFORMED: Ultrasound-guided FNA of thyroid nodule ? OPERATORS: Dr. Marina Madrid ? INDICATION: right isthmus 3.7 cm thyroid nodule; FNA performed to assess for malignancy ? DESCRIPTION OF PROCEDURE: The indications for FNA (to assess for malignancy) were reviewed with the patient in detail. Potential complications (e.g., bleeding, infection, damage to local structures, absence of clear diagnosis after FNA) were reviewed. Alternatives to FNA including conservative observation or surgery were described. The patient understood and agreed to proceed. This was documented by the signing of the written informed consent form. A time-out was performed to confirm the patient's identity and the site of planned FNA. The nodule of interest was identified using ultrasound (14 MHz linear array probe). The site of FNA was then draped in the usual fashion and carefully cleaned and prepared using alcohol swabs. The skin at the previously-identified site of needle insertion was iced and sprayed with numbing spray. Under ultrasound guidance, _5_ passes were performed using a 1.5-inch, 25-gauge needle, and sample was obtained via capillary action. The needle tip was clearly visualized to be within the nodule at the time of sampling for 5__ of 5__ passes The patient tolerated the procedure well. There were no immediate complications. A small adhesive bandage was applied, and the patient was advised to take acetaminophen (rather than NSAIDs) for any discomfort and to report any signs of inflammation/infection or marked swelling. IMPRESSION: Technically successful ultrasound-guided fine needle aspiration of right isthmus 3.7 cm thyroid nodule. PLAN: The patient was advised that I will provide follow-up regarding the cytology result and any subsequent plans. Marina Madrid MD Endocrinology Attending Condition: stable Disposition: same day
--- OUTSIDE RECORDS SUMMARY | 2024-11-06 11:34 | XMS_ITS | Patient Health Record ---
Author Organization [facility] Address [address] [address] [place] [address] Care Team Providers Care Machine Sander Name Role Phone Devon Millard MD Primary Care Provider Unavail able MARCELLA HWANG Unavailable [phone] [place] Gaitan MD Unavailable Unavailab le Allergies No Known Allergies Reason For Referral No Information Social History Tobacco Use: Social History Observation Description Date Details (start date - stop date) Former Smoker NA - NA Tobacco Use/Smoking Question Answer Notes Are you a: former smoker Problems Problem Type SNOMED Code ICD Code Onset Dates Problem Status W/U Status Risk Notes Problem Aneurysm (18175980) Aneurysm (I72.9) Active confirmed Problem Acquired aneurysm of cerebral artery (901727867) Acquired aneurysm of cerebral artery (I67.1) Active confirmed Plan Of Treatment Pending Test Test Name Order Date MRA : Head without contrast 05/18/2023 Insurance Providers Payer Name Payer Address Payer Phone Subscriber Number Group Number Insured Name Patient Relationship to Insured Coverage Start Date Coverage End Date Medicare [employer] Plans [address] [address] [place] [address] [id number] Alonso Nidia Self - patient is the insured Medical (General) History Medical History History ICD Code Brain Aneurysm Fibromyalgia Hypertension I10 Stroke Surgical History Surgery Date(Month/Year) knee surgery Carpal tunnel
--- OUTSIDE RECORDS SUMMARY | 2024-11-06 11:35 | XMS_ITS | Clinical Summary ---
Author Organization [facility] Address [address] [place] [address] Phone Care Team Providers Care Recreation Therapy Aide Name Role Phone Daylin Manuel Primary Care Provider [phone] Encounters Date Type Department Care Team Description 10/28/2024 Telephone [place] [address] [place] [address] Physician, Pcp Unknown from Last 3 [...] Insurance MEDICA[place] - [place] MEDICARE Care Teams Recreation Therapy Aide Relationship Specialty [place] [address] [place] [id number] PCP - General 04/09/24
--- OUTSIDE RECORDS SUMMARY | 2024-11-06 11:35 | XMS_ITS | Patient Health Record ---
Author Organization [facility] Address [address] [address] Care Team Providers Care Diamond Cleaver Name Role Phone Devon Sen MD Primary Care Provider Unavail able Nick Neal Unavailable [phone] TROY SEN MD Unavailable Unavailable Delmi Potter Unavailable [phone] Allergies No Known Allergies Reason For Referral Reason Req from spec, F/U o n 11/16/23 w/Dr. Nick Neal , CC marked urgent for time only Referred Organization [id number] [place] Referred Provider Nick Neal Referred Address [address] [place] [id number], General Notes Devon Sen 03:09:04 PM >.Okay to proceed with referral, thank you., Bob Galan 11/14/2023 06:58:56 PM >req from spec, pcp approved, sent to cm for review., Emili Cameron 11/15/2023 09:41:44 AM >Approved x 1 to [facility] preferred Specialist/Imaging Facility, please process. Thank you., Emili Ross Lpn, Administrative Assistant Coordinator, Bob Galan 11/15/2023 11:27:44 AM >referral/auth faxed to spec Dr. Nick Roman appt 11/16/23, faxed manually to [phone]. Clinical Notes Emili Cameron 03/2023 09:41:40 AM >+++++PLEASE FAX CONSULT NOTES TO PCP OFFICE AFTER PATIENTS VISIT. THANK YOU.+++++, FAX #: [phone]. Referral Priority Urgent Referral Appointment Date 11/16/2023 Reason 1 FU Referring Provider First Name Devon Referring Provider Last Name [place] Referring Provider Speciality Internal M edicine Referred Organization [facility] [place] Referred Provider Nick Neal Referred Address [address] [place] [address],[place], [place],[address], Referral Priority Routine Medications Medication SIG (Take, [...] Risk Notes Problem Diverticular disease of colon (222290774) Diverticulosis large intestine w/o perforation or abscess w/o bleeding (K57.30) Active confirmed Problem Adenomatous polyp of rectum (2020141204460) Adenomatous polyp of rectum (D12.8) Active confirmed Problem Benign neoplasm of colon (96228017) Colon adenoma (D12.6) Active confirmed Problem History of polyp of colon (924621138) 1. Personal history of colon polyps (Z86.010) Active confirmed Vital Signs Blood pressure diastolic 88 mm Hg 11/16/2023 Weight-kg 75.3 kg 11/16/2023 Height 66 in 11/16/2023 Blood pressure systolic 157 mm Hg 11/16/2023 Weight 166 lbs 11/16/2023 BMI 26.79 kg/m2 11/16/2023 Encounters Encounter Location Date Provider Diagnosis [id number] [place] [address] [place], [place] [address] [address] 11/16/2023 Delmi Potter Adenomatous polyp of rectum [...] Insured Coverage Start Date Coverage End Date [facility] MEDICARE REPLACEMET [address] [address] [place], [place] [id number] KAILA CUETO Self - patient is the insured 4 Medical (General) History Medical History History ICD Code High Blood Pressure High Cholesterol Implantable loop recorder Stroke Brain Aneurysm Surgical History Surgery Date(Month/Year) Shoulder replacement (Left) Knee Replacement
--- OUTSIDE RECORDS SUMMARY | 2024-11-06 11:35 | XMS_ITS | Clinical Summary ---
Author Organization [facility] Address [address] [place] [address] Care Team Providers Care Dye House Helper Name Role Phone Daylin Manuel PA-C Primary Care Provider [phone] Source Comments PLEASE NOTE, if this patient [...] heart rate response during stress [facility] Primary Stock Repairer: Jony Hernandez DO, PhD, [facility] - 01/06/24 ASSESSMENT AND PLAN 1. History [...] intact. Left ventricular hypertrophy 04/08/2024 Overview (04/08/2024): [facility] Primary Stock Repairer: Jony Hernandez DO, PhD, [facility] - 01/06/24 ASSESSMENT AND PLAN 1. History [...] Nonrheumatic pulmonary valve insufficiency 04/08 Overview (04/08/2024): [facility] Primary Stock Repairer: Jony Hernandez DO, PhD, [facility] - 01/06/24 ASSESSMENT AND PLAN 1. History of loop recorder (Primary) Overview: 04/11/2022- [employer] 01/03/2024 Explant 2. Amaurosis fugax 3. Primary hypertension ([facility]/HCC) 4. LVH (left ventricular hypertrophy) 5. Nonrheumatic [...] mitral valve regurgitation 04/08/19 25 Overview (04/08/2024): [facility] Primary Stock Repairer: Jony Hernandez DO, PhD, [facility] - 01/06/24 ASSESSMENT AND PLAN 1. History [...] History of loop recorder 04/08/2024 Overview (04/08/2024): [facility] Primary Stock Repairer: Jony Hernandez DO, PhD, [facility] 01/06/24 ASSESSMENT AND PLAN 1. History of [...] (03/26/2024): 05/31/2023 - [facility] - Note: Assessment/Plan: 1) Menopausal and female climacteric states 2) postmenopausal atrophic vaginitis. Rx: Estradiol 10 mcg - apply per vagina daily for 2 weeks then 2 times a week; Progesterone 200 mg - take 1 capsule PO QHS F/u 6 months Menopausal and female climacteric states 025 Overview (03/26/2024): 05/31/2023 - [facility] - Note: Assessment/Plan: 1) Menopausal and female climacteric states 2) postmenopausal atrophic vaginitis. Rx: Estradiol 10 mcg - apply per vagina daily for 2 weeks then 2 times a week; Progesterone 200 mg - take 1 capsule PO QHS F/u 6 months Right rotator cuff tear 03/26/2024 Overview (10/01/2024): 09/26/2024 - [facility] - Dx: Right shoulder Pain s/p Total replacement of right shoulder - f/u PT 07/06/2023 - [facility] - Note: Assessment/Plan: - Right rotator cuff tear - history of rotator cuff repair 01/2022 - MRI 04/2023 reporting tendinosis, full-thickness rotator cuff tearing and arthritis. - Osteoarthritis of right shoulder - recommend glucosamine - heat/stretching laying down Osteoarthritis of right shoulder 03/26/2024 Overview (03/26/2024): 07/06/2023 - [facility] - Note: Assessment/Plan: - Right [...] reverse total shoulder arthroplasty on 10/06/2023 - [facility] GERD (gastroesophageal reflux disease) H/O: [...] Bone Density Screening 2017 Falls Prevention 2017 [id number] ( - season) 2024 Imm-Influenza (#1) 2024 [...] HEPATITIS C ANTIBODY NON-REACT JEANNETTE NON-REACT JEANNETTE [facility] Comment: HCV antibody was non-reactive. There is no laboratory evidence of HCV infection. In most cases, no further action is required. However, if recent HCV exposure is suspected, a test for HCV RNA (test code 33974) is suggested. For additional information please refer to http://education.Qumulo/faq/LYA62g9 (This link is being provided for informational/ educational purposes only.) Blood Blood / Unknown 03/25/2024 9 :10 AM EST 03/25/2024 9:10 AM EST Narrative [facility] - 03/31/2024 4:16 PM EST FASTING:YES Daylin Manuel PA-C LAB - BLOOD DRAW Edited Res ult - Final Performing Organization Address City/[facility]/ZIP Co de Phone Number [facility] [address] [address], [facility] [address] [address] * (ABNORMAL) LIPID PANEL (03/25/2024 9:10 AM EST) CHOLESTEROL, TOTAL 249(H) <200 mg/dL [facility] HDL CHOLESTEROL 73 > OR = 50 mg/dL [facility] TRIGLYCERIDES 99 <150 mg/dL [facility] LDL-CHOLESTEROL 155(H) 99 mg/dL (calc) [facility] Comment: Reference range: <100 Desirable range <100 mg/dL for primary prevention; <70 mg/dL for patients with CHD or diabetic patients with > or = 2 CHD risk factors. LDL-C is now calculated using the Rd-Nelson calculation, which is a validated novel method providing better accuracy than the Friedewald equation in the estimation of LDL-C. Rd SS et al. BRYN. 2013;310(19): 2794-1202 (http://education.Toodalu/faq/RHB444) CHOL/HDLC RATIO 3.4 <5.0 (calc) [facility] NON-HDL CHOLESTEROL 176(H) <130 mg/dL (calc) [facility] Comment: For patients with diabetes plus 1 major ASCVD risk factor, treating to a non-HDL-C goal of <100 mg/dL (LDL-C of <70 mg/dL) is considered a therapeutic option. Blood Blood / Unknown 03/25/2024 9 :10 AM EST 03/25/2024 9:10 AM EST Narrative [facility] - 03/31/2024 4:16 PM EST FASTING:YES us Daylin Manuel PA-C LAB - BLOOD DRAW Final Resu lt Performing Organization Address City/[facility]/ZIP Co de Phone Number [facility] [address] [address], [facility] [address] [address] from Last 3 Months or Most Recently Relevant to Health Maintenance Insurance [place] [facility] Care Teams Dye House Helper Relationship Specialty Start Date End Date Daylin Manuel PA-C [facility] [place] [address] PCP - General Primary Care 03/11/24
== END 2024-11-06 09:39 | disposition home or self-care (01) ==
LOC: HO.US 09:38
PROVIDERS: PCP Internal Medicine; Visit Provider Student in an Organized Health Care Education/Training Program
DX: E04.2 Nontoxic multinodular goiter (principal)
CPT/HCPCS: 10005; 88173; 88305

== ENCOUNTER → 2024-11-06 09:38 | Outpatient (BNV) | payer OTHER, SELFPAY | PROVIDERS: PCP Internal Medicine; Visit Provider Student in an Organized Health Care Education/Training Program | DX: E04.1 Nontoxic single thyroid nodule (principal) | CPT/HCPCS: 10005 ==

== ENCOUNTER 2024-11-20 13:15 | Outpatient (AMB) | payer OTHER, SELFPAY ==
[2024-11-20 13:29] VITALS: BP 152/74; PULSE 61; O2SAT 97; BMI 27.0
--- NOTE | 2024-11-20 13:29 | MHC.OFFVIS ---
Vital Signs 11/20/24 13:29 Height 5 ft 4.47 in Weight 159 lb 6.307 oz BMI 27.0 BP 152/74 H Blood Pressure Location Lt brachial Position Sitting Pulse 61 Pulse Source Pulse Oximeter Pulse Oximetry (%) 97 Oxygen Delivery Method Room Air Intake Visit Reasons: Biopsy f/u Intake Note: Patient present today for biopsy follow up. Physician Assistant Certified Required: No Allergies No Known Allergies Allergy (Verified 11/04/24 10:30) Medication List - Last Reconciled 11/20/24 by Marina Madrid MD amoxicillin 2,000 mg (4 x 500 mg) PO ONCE 1 day aspirin 81 mg PO DAILY 90 days chlorhexidine gluconate 0.12% 15 mL PO BID cholecalciferol (vitamin D3) 1,250 mcg PO QWEEK 3 months clobetasol 0.05% 1 appl topical DAILY cyanocobalamin (vitamin B-12) 1,000 mcg PO DAILY diclofenac sodium 1% 2 grams topical BID PRN duloxetine 60 mg PO DAILY estradiol 10 mcg vaginal 2XW hydrochlorothiazide 50 mg PO DAILY ibuprofen 800 mg PO TID PRN ketoconazole 2% 1 appl topical 3XW linaclotide (Linzess) 145 mcg PO QAM potassium chloride ER 20 mEq PO DAILY progesterone micronized 200 mg PO BEDTIME rosuvastatin 20 mg PO BEDTIME trazodone 100 mg PO BEDTIME PRN 90 days ubrogepant (Ubrelvy) mg PO PRN HPI Comments Details: 74-year-old female coming in today for follow up of nontoxic multinodular goiter. HPI Has history of thyroid nodules since 10 years, first diagnosed in [place], then 5 years ago moved to [place]. Just recent Was seeing endo in [place]. Dr. De La Rosa. Doesnt think she had a biopsy, not sure. No TFTs in the system. Ultrasound thyroid done at [facility], report reviewed from 04/30/2024 which showed a dominant 3.7 cm mixed cystic solid, hypoechoic TR 3 category nodule in the isthmus which meets criteria for FNA. Another smaller 1.1 cm solid, hypoechoic TR 4 category nodule in the isthmus noted. This will need follow up. Patient currently denies heat or cold intolerance, diarrhea or constipation, palpitation, anxiety, weight changes, mood changes, changes in appearance of eyes or vision changes, tremors, increased diaphoresis or dry skin. Reports hair loss. ? Reports some tirdeness but helping her 90 years old mom, thats why she moved. Patient denies any difficulty swallowing, pain on swallowing or voice changes or difficulty breathing. Patient denies any history of childhood neck radiation. Denies having ever used lithium, amiodarone or biotin supplements. Daughter has thyroid cancer. Doesnt know what type. Daughter is doing well. 08/01/2024 TSH: 0.62 08/21/2024: Right isthmus 3.7 cm nodule came back as nondiagnostic, Louise category 1. Interval history 11/06/2024 status post repeat FNA of the right isthmus 3.7 cm nodule which again came back as nondiagnostic, Louise category 1 with a thin prep slide showing only blood and peripheral blood elements. Rare groups of benign-appearing follicular epithelial cells in the cell block. Physical exam General: sitting comfortably in no acute distress HEENT: normocephalic/atraumatic, Neck: supple, palpable isthmus 2 cm nodule Cardiac: normal heart sounds Pulm: normal breath sounds B/L, no added breath sounds Abd: not distended, no tenderness Extremities: no edema, no signs of myxedema Laboratory Tests 08/01/24 08:43 TSH 0.62 [facility] Medical History (Updated 11/04/24 @ 11:03 by Pamela Marquez MD) Obstructive sleep apnea Migraine Cerebral aneurysm Lumbar degenerative disc disease Overweight (BMI 25.0-29.9) Cardiac murmur Vitamin D deficiency Osteoarthritis Insomnia Constipation Multinodular thyroid Pure hypercholesterolemia Essential hypertension Surgical History History of carpal tunnel release of both wrists History of arthroplasty of right shoulder Hx of total knee replacement Family History Other Heart disease Hypertension Skin cancer Social History Housing: Other (living in sisters house currently ) Patient Tobacco Use Status: Former Tobacco user e-Cigarette/Vaping Use: Never Used service: No Current occupational status: retired Current occupational exposures/hazards: No Cognitive needs: No Hearing needs: No Vision needs: No Physical Exam Vital Signs: Last Vital Signs Pulse 61 11/20/24 13:29 BP 152/74 H 11/20/24 13:29 Pulse Ox 97 11/20/24 13:29 Oxygen Delivery Method Room Air 11/20/24 13:29 BMI result Body Mass Index 27.0 Assessment & Plan Assessment & Plan (1) Multinodular thyroid: Code(s): E04.2 - Nontoxic multinodular goiter Category: Medical Plan: 74-year-old female with family history of thyroid cancer, with no personal history of head or neck radiation, coming in today for fup of nontoxic multinodular goiter. Has history of thyroid nodules since 8 years, first diagnosed in [place], then 5 years ago moved to [place]. Just recent Was seeing endo in [place]. Dr. De La Rosa. We do not have these records. Doesnt think she had a biopsy, not sure. No compressive symptoms. Ultrasound thyroid done at [facility], report reviewed from 04/30/2024 which showed a dominant 3.7 cm mixed cystic solid, hypoechoic TR 3 category nodule in the isthmus which meets criteria for FNA. Another smaller 1.1 cm solid, hypoechoic TR 4 category nodule in the isthmus noted. This will need follow up. 08/01/2024 TSH: 0.62 08/21/2024: Right isthmus 3.7 cm nodule came back as nondiagnostic, Louise category 1., while I was doing her ultrasound I noted it is more in the right side of the isthmus than the central isthmus. 11/06/2024 status post repeat FNA of the right isthmus 3.7 cm nodule which again came back as nondiagnostic, Louise category 1 with a thin prep slide showing only blood and peripheral blood elements. Rare groups of benign-appearing follicular epithelial cells in the cell block. I discussed with the patient that nondiagnostic results yield a 5-20% chance of malignancy. At this time given overall low risk appearance of the nodule, we discussed that there is the options of monitoring with surveillance ultrasounds. Versus diagnostic lobectomy. However given low risk appearance of the ultrasound we feel comfortable monitoring this as well. Patient understands that there is a 5-20% risk of malignancy nondiagnostic nodules but that thyroid cancer is in most cases a slow growing indolent disease. She feels comfortable with the idea of ultrasound monitoring. Plan: -ordered ultrasound of the thyroid to be done in October 2025 prior to follow up in November 2025 -ordered TSH with a reflex free T4 to be done prior to follow up in November 2025 Plan See above Orders: Orders TSH reflex Free T4 10/27/25 E04.2 - Nontoxic multinodular goiter US thyroid 10/27/25 E04.2 - Nontoxic multinodular goiter Patient Instructions: Please do ultrasound of the thyroid in October 2025, somebody we will call you to schedule this, please make sure this is done a few weeks prior to your next follow up with me in November 2025 Do thyroid blood work a few days prior to follow up in November 2025, orders have been placed Coding Level of Care Code Est Pt Level 3 (90523) Diagnoses Multinodular thyroid E04.2
== END 2024-11-20 13:56 | disposition home or self-care (01) ==
LOC: HO.ENCR 13:16
PROVIDERS: PCP Internal Medicine; Visit Provider Student in an Organized Health Care Education/Training Program
DX: E04.2 Nontoxic multinodular goiter (principal)
CPT/HCPCS: 99213

== ENCOUNTER → 2024-11-20 13:15 | Outpatient (BNVA) | payer OTHER, SELFPAY | PROVIDERS: PCP Internal Medicine; Visit Provider Student in an Organized Health Care Education/Training Program | DX: Z71.2 Person consulting for explanation of examination or test findings (principal); E04.2 Nontoxic multinodular goiter | CPT/HCPCS: 99212 ==

== ENCOUNTER 2024-12-03 10:29 | Outpatient (REF) | payer OTHER, SELFPAY ==
--- OUTSIDE RECORDS SUMMARY | 2023-07-27 06:00 | XMS_ITS ---
Author Organization [facility] Address [address] [place] [id number] Care Team Providers Care Metal Forger'S Assistant Name Role Phone Mckinley NOLEN, Devon Primary Care Provider Unavail able Nick Neal Unavailable [phone] MCKINLEY NOLEN, TROY Unavailable Unavailable REASON FOR VISIT daniel for colon Encounters Encounter Location Date Provider Diagnosis [facility] [address] [address] 07/27/2023 Nick Neal Plan Of Treatment No Information Progress Notes * YOMAIRA CUETOSDOB:1950 (74 yo F)Acc No.[id number]:07/27/2023 Patient: KAILA BROWN Provider: Phil Neal MD :1950 A ge:72 Y S ex:Female Date:07/27/2023 Address:[facility] [address] [facility] Pcp:Devon Millard MD Subjective: * Chief Complaints: * E va for colon * Electronic signature of Jamie Neal MD on 12/03/2024 at 12:30 PM EDT Sign off status: Pending * Provider: Phil Neal MD Date: 0 07/27/2023 Generated for Printi ng/Faxing/eTransmitting on: 1 12:30 PM EDT
--- OUTSIDE RECORDS SUMMARY | 2024-12-03 12:30 | XMS_ITS | Patient Health Record ---
Author Organization [facility] Address [address] [address] [place] [address] Care Team Providers Care Shank Stitcher Name Role Phone Devon Millard MD Primary Care Provider Unavail able MARCELLA HWANG Unavailable [phone] [place] Gaitan MD Unavailable Unavailab le Allergies No Known Allergies Reason For Referral No Information Social History Tobacco Use: Social History Observation Description Date Details (start date - stop date) Former Smoker NA - NA Tobacco Use/Smoking Question Answer Notes Are you a: former smoker Problems Problem Type SNOMED Code ICD Code Onset Dates Problem Status W/U Status Risk Notes Problem Aneurysm (73899949) Aneurysm (I72.9) Active confirmed Problem Acquired aneurysm of cerebral artery (553205366) Acquired aneurysm of cerebral artery (I67.1) Active confirmed Plan Of Treatment Pending Test Test Name Order Date MRA : Head without contrast 05/18/2023 Insurance Providers Payer Name Payer Address Payer Phone Subscriber Number Group Number Insured Name Patient Relationship to Insured Coverage Start Date Coverage End Date Medicare [employer] Plans [address] [address] [place] [address] [phone] [id number] Alonso Nidia Self - patient is the insured Medical (General) History Medical History History ICD Code Brain Aneurysm Fibromyalgia Hypertension I10 Stroke Surgical History Surgery Date(Month/Year) knee surgery Carpal tunnel
--- OUTSIDE RECORDS SUMMARY | 2024-12-03 12:30 | XMS_ITS | Patient Health Record ---
Author Organization [facility] Address [address] [address] Care Team Providers Care Utility Supervisor [employer] Name Role Phone Devon Sen MD Primary Care Provider Unavail able Nick Neal Unavailable [phone] TROY SEN MD Unavailable Allergies No Known Allergies Reason For Referral No Information Medications Medication SIG (Take, Route, Frequency, Duration) [...] Risk Notes Problem Diverticular disease of colon (496014710) Diverticulosis large intestine w/o perforation or abscess w/o bleeding (K57.30) Active confirmed Problem Adenomatous polyp of rectum (8129420882994) Adenomatous polyp of rectum (D12.8) Active confirmed Problem Benign neoplasm of colon (33891181) Colon adenoma (D12.6) Active confirmed Problem History of polyp of colon (472577958) 1. Personal history of colon polyps (Z86.010) Active confirmed Plan Of Treatment Pending Test Test Name Order Date Gastrointestinal 08/28/2023 Future Test Test Name Order Date Colonoscopy 06/30/2023 Cardiac Clearance 06/30/2023 Insurance Providers Payer Name Payer Address Payer Phone Subscriber Number Group Number Insured Name Patient Relationship to Insured Coverage Start Date Coverage End Date [facility] MEDICARE REPLACEMET [address] [address] [place], [place] [id number] KAILA CUETO Self - patient is the insured 4 Medical (General) History Medical History History ICD Code High Blood Pressure High Cholesterol Implantable loop recorder Stroke Brain Aneurysm Surgical History Surgery Date(Month/Year) Shoulder replacement (Left) Knee Replacement
== END 2024-12-03 10:30 | disposition home or self-care (01) ==
LOC: HO.MAMMO 10:29
PROVIDERS: PCP Internal Medicine; Visit Provider Internal Medicine
DX: Z12.31 Encounter for screening mammogram for malignant neoplasm of breast (principal)
CPT/HCPCS: 77063; 77067

== ENCOUNTER → 2024-12-03 10:45 | Outpatient (BNV) | payer OTHER, SELFPAY | PROVIDERS: PCP Internal Medicine; Visit Provider Internal Medicine | DX: Z12.31 Encounter for screening mammogram for malignant neoplasm of breast (principal) | CPT/HCPCS: 77063; 77067 ==

== ENCOUNTER 2025-01-31 10:47 | Outpatient (AMB) | payer OTHER, SELFPAY ==
--- OUTSIDE RECORDS SUMMARY | 2016-07-22 06:00 | XMS_ITS | Continuity of Care Document ---
Author Organization [facility] Address [address] [place] [address] Phone Care Team Providers Care Doll Dresser Name Role Phone Unavailable Unavailable Unavailable Procedures Procedure Date ECHO Advance Directives Directive Yes / No Effective Date File Name No Information Encounters Encounter Description Practice Location Reason(s) For Visit Diagnoses Date Provider Encounter Disposition [facility], [address] , [place], [address], [phone] [facility] Essential (primary) hypertensionHype rlipidemia, unspecifiedCardi omegaly 201 7 No Information Family History Family Member Type Diagnosis Age At Onset No Information Payers Payer name Insurance type Identifiers Authorization(s) Com ments Scan CI missy ID: [id number] Name: Coverage Status Eligibility Check on: [id number] nship to Subscriber: selfPayer Address: [address] [address], [place], [place], [address]Ghaep Phone: [phone] [employer]ence Management r ID: [id number] Name: Coverage Status Eligibility Check on: [id number] nship to Subscriber: selfPayer Address: [address], [place], [place], [id number] Phone: [phone] Social History Type Description Quantity Date Captured Comments Sex Female Smoking Status No Information Current Gender Female (finding) Chief Complaint And Reason For Visit No Information History Of Present Illness Encounter Date Complaint History Of Prese nt Illness No Information Functional Status Date Description Comments No Information Instructions Date Instruction Additional Infor mation No Information Assessments Type Assessment Date No Information
[2025-01-31 10:52] VITALS: BP 128/74; PULSE 67; O2SAT 97; BMI 27.0
--- NOTE | 2025-01-31 10:52 | MHC.PC.OV ---
Vital Signs 01/31/25 10:52 Height 5 ft 4.47 in Weight 159 lb 6 oz BMI 27.0 BP 128/74 Blood Pressure Location Lt brachial Position Sitting Pulse 67 Pulse Source Pulse Oximeter Pulse Oximetry (%) 97 Oxygen Delivery Method Room Air Intake Visit Reasons: 4 mo follow up Alcohol And Drug Counselor Required: No Accompanied by: Self / Same As Patient Allergies No Known Allergies Allergy (Verified 01/31/25 11:15) Medication List - Last Reconciled 01/31/25 by Alejo Singh MD amoxicillin 2,000 mg (4 x 500 mg) PO ONCE 1 day aspirin 81 mg PO DAILY 90 days chlorhexidine gluconate 0.12% 15 mL PO BID cholecalciferol (vitamin D3) 1,250 mcg PO QWEEK 3 months clobetasol 0.05% 1 appl topical DAILY cyanocobalamin (vitamin B-12) 1,000 mcg PO DAILY diclofenac sodium 1% 2 grams topical BID PRN duloxetine 60 mg PO DAILY estradiol 10 mcg vaginal 2XW hydrochlorothiazide 50 mg PO DAILY ibuprofen 800 mg PO TID PRN ketoconazole 2% 1 appl topical 3XW linaclotide (Linzess) 145 mcg PO QAM potassium chloride ER 20 mEq PO DAILY progesterone micronized 200 mg PO BEDTIME rosuvastatin 20 mg PO BEDTIME trazodone 100 mg PO BEDTIME PRN 90 days ubrogepant (Ubrelvy) mg PO PRN Tobacco use date assessed: 01/31/25 Fall risk assessment: No Falls in past year Last assessed Fall Risk: 01/31/25 Dental Screening Dental Screen Date: 01/31/25 Did you have a dental visit in the last 12 months?: Yes Did you have a dental problem in the last 6 months where you did not have access to dental care?: No Was dental information given to patient?: Patient has dentist HPI 4 mo follow up HPI Details Patient comes in today for her follow-up visit States that she feels okay She denies any headaches or dizziness Denies any chest pains, no increased shortness of breath No nausea/vomiting, no abdominal pain No change in bowel habits noted States that she's had a non-painful lesion on the back of her neck for a while now and would like to know what to do about it States that a previous consultation for this issue was unsuccessful because the specialist supposedly did not receive her medical records She has been seeing endocrinology for her thyroid nodules and her thyroid biopsies done over the past year have come back benign or non-diagnostic, including the last one done under [place]-guidance in October 2024 and she was recommended to just continue with yearly ultrasound for continuing surveillance at this time Patient also notes the recent appearance of prominent veins in her right leg - states that these do not hurt She has a history of using medications to quit smoking approximately two years ago (Chantix) but has not taken it since She reports increased anxiety and frequent urges to smoke, which she attributes to family members smoking during the holidays and she would like to try getting Rx for Chantix again Patient states that she was asked to pay $24.80 for her [facility], although she has never paid for her medications before and is wondering why she is being charged for it now She reports a decrease in physical activity, as she previously walked four miles daily but has stopped due to cold weather, and notes that she is eating more lately She would also like to get a refill on her Linzess and she has no follow up labs done recently [facility] Medical History (Updated 01/31/25 @ 11:31 by Alejo Singh MD) Obstructive sleep apnea Migraine Cerebral aneurysm Lumbar degenerative disc disease Overweight (BMI 25.0-29.9) Cardiac murmur Vitamin D deficiency Osteoarthritis Insomnia Constipation Multinodular thyroid Pure hypercholesterolemia Essential hypertension Surgical History History of carpal tunnel release of both wrists History of arthroplasty of right shoulder Hx of total knee replacement Family History Other Heart disease Hypertension Skin cancer Social History Housing: Other (living in sisters house currently ) Patient Tobacco Use Status: Former Tobacco user e-Cigarette/Vaping Use: Never Used service: No Current occupational status: retired Current occupational exposures/hazards: No Cognitive needs: No Hearing needs: No Vision needs: No Questionnaire PHQ-9 Over the last 2 weeks, how often have you been bothered by any of the following problems? 1. Little interest or pleasure in doing things: not at all 2. Feeling down, depressed, or hopeless: not at all 3. Trouble falling or staying asleep, or sleeping too much: not at all 4. Feeling tired or having little energy: not at all 5. Poor appetite or overeating: not at all 6. Feeling bad about yourself - or that you are a failure or have let yourself or your family down: not at all 7. Trouble concentrating on things, such as reading the newspaper or watching television: not at all 8. Moving or speaking so slowly that other people could have noticed. Or the opposite - being so fidgety or restless that you have been moving around a lot more than usual: not at all 9. Thoughts that you would be better off or of hurting yourself in some way: not at all Total score: 0 Depression Screening Interpretation: Negative Depression Screening Done: Yes 16463 - PHQ-9 Billing: Yes Source: Developed by Drs. Javier Hinkle, Elyssa Mahoney, Charles Panchal and colleagues, with an educational angelica from [employer]. Thrive Questionnaire Date Thrive assessed: 01/31/25 I am a: Patient What is your living situation today?: I do not have a steady places to live I am temporarily staying with others Within the past 12 months, did the food you bought not last and you didn't have the money to get more?: Sometimes True Within the past 12 months, did you worry whether your food would run out before you got money to buy more?: Sometimes True Do you have trouble paying for medicines?: No Do you have trouble getting transportation to medical appointments?: No Do you have trouble paying your heating and electricity bill?: No Do you have trouble taking care of your child, family member or friend?: No Do you have trouble with day-to-day activities such as bathing, preparing meals, shopping, managing finances, etc.?: No Are you currently unemployed and looking for a job?: No Are you interested in more education?: No Please select the resources that you would like help with: None Currently or been in a relationship where the following occur: No concerns reported THRIVE Score: 3 AUDIT C Alcohol Use Questionnaire (AUDIT-C) 1. How often do you have a drink containing alcohol?: Never 3. How often do you have six or more drinks on one occasion?: Never Total Score: 0 Score Reviewed/Action Taken: Yes JAMES-7 AMB Questionnaire JAMES-7 Date JAMES - 7 assessed: 01/31/25 Feeling nervous, anxious, or on edge: 0 = Not at all Not being able to stop or control worryin = Not at all Worrying too much about different things: 0 = Not at all Trouble relaxin = Not at all Being so restless that it is hard to sit still: 0 = Not at all Becoming easily annoyed or irritable: 0 = Not at all Feeling afraid as if something awful might happen: 0 = Not at all Total JAMES-7 score (0-4 normal; 5-9 mild; 10-14 moderate; 15-21 severe): 0 Source: Developed by Drs. Javier Hinkle, Elyssa Mahoney, Charles Panchal and colleagues, with an educational angelica from [employer]. Review of Systems Const Denies chills, Denies fatigue, Denies fever(s) and Denies headache(s) ENT Denies dysphagia, Denies dizziness, Denies otalgia, Denies headache(s), Denies neck pain, Denies odynophagia and Denies sore throat Card Denies chest pain, Denies palpitations and Denies dyspnea Resp Denies chest congestion, Denies cough and Denies dyspnea GI Denies abdominal pain, Denies constipation, Denies dysphagia, Denies heartburn, Denies diarrhea, Denies nausea, Denies odynophagia and Denies vomiting Denies difficulty voiding, Denies nocturia, Denies dysuria and Denies urinary urgency Musc Reports back pain (on and off) and Denies neck pain Skin/Breast Details: (+) lump on the back of the neck Denies rash Neuro Denies dizziness and Denies headache(s) Endo Denies fatigue and Denies palpitations Physical exam (Primary Care) Vital Signs: Last Vital Signs Pulse 67 01/31/25 10:52 BP 128/74 01/31/25 10:52 Pulse Ox 97 01/31/25 10:52 Oxygen Delivery Method Room Air 01/31/25 10:52 BMI result Body Mass Index 27.0 Tobacco/Smoking Status: Tobacco use Status Tobacco use date assessed 01/31/25 01/31/25 11:02 Patient Tobacco Use Status Former Tobacco user 01/31/25 11:02 e-Cigarette/Vaping Use Never Used 01/31/25 11:02 PHQ-9: PHQ-9 Score PHQ-9: Total score 0 01/31/25 11:16 Depression Screening Interpretation: Negative Thrive Assessment: Date of Thrive Assessment Date Thrive assessed 01/31/25 01/31/25 11:02 Currently or been in a relationship where the following occur: No concerns reported Const General: no acute distress and alert HENMT Ears: TM's normal bilaterally and EAC's normal Throat: Yes posterior oropharynx normal and Yes tonsils normal (no TP congestion) Neck Other: (+) small non-tender cyst on the back of the neck Neck: Yes supple and No lymphadenopathy Thyroid: Thyroid normal Resp Auscultation: clear to auscultation bilaterally, no rales and no wheezes Cardio Rate: regular rate Rhythm: regular rhythm Heart sounds: Murmur heart sound present systolic II/ GI Palpation (GI): Soft to palpation and nontender Auscultation: normal bowel sounds General: Yes no CVA tenderness Back/Spine/Pelvis Back: no CVA tenderness Thoracic/Lumbar Spine: lumbar spinal tenderness Skin Rashes: no rashes Extrem General: Yes no clubbing, cyanosis or edema Coding Level of Care Code Est Pt Level 4 (81497) Add On Problem Visit Only Diagnoses Decreased left ventricular systolic function I51.9 Essential hypertension I10 Pure hypercholesterolemia E78.00 Multinodular thyroid E04.2 Primary osteoarthritis involving multiple joints M15.0 Osteoarthritis location: multiple joints Osteoarthritis type: primary Degeneration of intervertebral disc of lumbar region with discogenic back pain M51.360 Disc-related pain type: discogenic back pain only History of CVA (cerebrovascular accident) Z86.73 History of benign brain tumor Z86.011 Constipation, unspecified constipation type K59.00 Constipation type: unspecified constipation type Vitamin D deficiency E55.9 Insomnia, unspecified type G47.00 Insomnia type: unspecified Smoking history Z87.891 Overweight (BMI 25.0-29.9) E66.3 Additional Codes PHQ-9 - 84145 - PHQ-9 Billing: Yes ([id number]) Assessment & Plan Assessment & Plan (1) Decreased left ventricular systolic function: Code(s): I51.9 - Heart disease, unspecified Category: Medical Plan: Her echocardiogram done a few months ago revealed a mildly decreased left ventricular systolic function, with a calculated ejection fraction of 50% by the biplane method. There is also some aortic valve calcification but no significant stenosis; (+) trace mitral valve regurgitation, trace tricuspid valve regurgitation and trace pulmonic valve regurgitation were noted as well and there was also evidence of grade 1 diastolic dysfunction Patient has been advised that her echocardiogram findings recently are similar to what her echo findings were back in 2021 with no significant changes Per request, we referred her to cardiology for further evaluation and management and she is now scheduled to be seen by Dr. Mcelroy on 02/20/2025 (2) Essential hypertension: Code(s): I10 - Essential (primary) hypertension Category: Medical Plan: Reinforced low sodium diet - goal is systolic BP of 120 mm or less Continue Olmesartan 20 mg QD, HCTZ 50 mg QD and Amlodipine 5 mg QD Patient is reminded to continue monitoring her blood pressure regularly (3) Pure hypercholesterolemia: Code(s): E78.00 - Pure hypercholesterolemia, unspecified Category: Medical Plan: Patient has no follow up labs done recently She has been advised that her cholesterol levels done a few months sgo were within normal limits but her LDL cholesterol was at the high end of normal at 129 mg/dl (this should ideally be <100 mg/dl) Reinforced low cholesterol diet Continue Rosuvastatin 20 mg Q HS Will have patient recheck her labs and fasting lipids in 4 months for follow up (4) Multinodular thyroid: Code(s): E04.2 - Nontoxic multinodular goiter Category: Medical Plan: Patient reports (+) Hx of thyroid nodules and was going for yearly surveillance testing when she was residing in [place] Per her request, we referred her to endocrinology here at [facility] and she is now following up with Dr. Madrid regularly for her thyroid nodules She had a couple of biopsies done this past year, with both biopsies coming back as non-diagnostic She will continue with yearly throid ultrasound at this time Follow up with endocrinology as scheduled (5) Osteoarthritis: Code(s): M19.90 - Unspecified osteoarthritis, unspecified site Category: Medical Qualifiers: Osteoarthritis location: multiple joints Osteoarthritis type: primary Qualified Code(s): M15.0 - Primary generalized (osteo)arthritis Plan: Involving multiple joints She is S/P total bilateral TKA as well as total arthroplasty of the right shoulder Continue Ibuprofen 800 mg TID PRN with food and Diclofenac 1% topical gel BID PRN She has not yet seen orthopedics here locally - will refer to orthopedics when needed (6) Lumbar degenerative disc disease: Code(s): M51.369 - Other intervertebral disc degeneration, lumbar region without mention of lumbar back pain or lower extremity pain Category: Medical Qualifiers: Disc-related pain type: discogenic back pain only Qualified Code(s): M51.360 - Other intervertebral disc degeneration, lumbar region with discogenic back pain only Plan: Reinforced activity and weight-lifting restrictions Continue Duloxetine 60 mg QD and Methocarbamol 500 mg QD PRN (7) History of CVA (cerebrovascular accident): Code(s): Z86.73 - Personal history of transient ischemic attack (TIA), and cerebral infarction without residual deficits Category: Medical Plan: Patient reports (+) recent CVA (twice), with mostly eye manifestations (?) with no residual neurologic or motor deficits Continue Aspirin 81 mg QD Follow up with neurology as scheduled (8) History of benign brain tumor: Code(s): Z86.011 - Personal history of benign neoplasm of the brain Category: Medical Plan: Head CT done back in July 2024 revealed NO intra or extra-axial mass midline shift mass effect or abnormal enhancement. (9) Constipation: Code(s): K59.00 - Constipation, unspecified Category: Medical Qualifiers: Constipation type: unspecified constipation type Qualified Code(s): K59.00 - Constipation, unspecified Plan: Patient is again encouraged on increased oral fluids and dietary fiber intake Continue Linzess 145 mcg Q AM- Rx refilled (10) Vitamin D deficiency: Code(s): E55.9 - Vitamin D deficiency, unspecified Category: Medical Plan: Continue Vitamin D3 1250 mcg once a week (11) Insomnia: Code(s): G47.00 - Insomnia, unspecified Category: Medical Qualifiers: Insomnia type: unspecified Qualified Code(s): G47.00 - Insomnia, unspecified Plan: Sleep hygiene reinforced Continue Trazodone 100 mg Q HS PRN (12) Smoking history: Code(s): Z87.891 - Personal history of nicotine dependence Category: Social Hx Plan: Patient states that she has had a few times lately when she was experiencing cigarette cravings Per request, we will start her back on Varenicline to help with her cravings to go back to smoking (13) Overweight (BMI 25.0-29.9): Code(s): E66.3 - Overweight Category: Medical Plan: Reinforced diet/exercise as tolerated/lose weight Plan Follow up in 4 months Orders: Orders Comprehensive Arnold. 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
--- OUTSIDE RECORDS SUMMARY | 2025-01-31 12:33 | XMS_ITS | Data Portability ---
Author Organization [facility] Address [address] [place] [address] Care Team Providers Care Concrete Pipe Plant Supervisor Name Role Phone HIM CCA OTHER Assessment No assessment recorded. Plan of Treatment Reminders Order Date Submit Date Provider Last Modified By Organization Details Last Modified Time Details Appointments None recorded. Lab rapid SARS CoV 2 Ag, QL IA, respiratory specimen 2024 025 [facility], [address] [place] [address], [id number] 18:02:57 rapid flu (A+B) 2024 025 [facility], [address] [place] [address], [id number] 18:03:38 Referral None recorded. Procedures None recorded. Surgeries None recorded. Imaging electrocard iogram 2024 025 [email or web address], [address] [place] [address], [id number] 17:21:19 Medication Orders None recorded. Patient TargetsNo targets recorded. Patient InstructionsNo instructions recorded. Reason for Referral None Reported. Results Created Date Observation Date Name Description Value Unit Range Abnormal Flag Note LastModifiedBy Organization Detail LastModifiedTime 09/06/1909/05/2024 rapid flu (A+B) Flu negati ve Not Available [address], [address] 09/05/2024 17:20:07 09/06/19 25 09/05/2024 rapid SARS CoV 2 Ag, QL IA, respi rator y speci men rapid SARS CoV 2 Ag, QL IA, respiratory specimen negati ve Not Available [address], [address] 09/05/2024 17:20:07 09/06/19 25 09/05/2024 elect chaz diogr am No observ ation record ed. [email or web address], [place], [address] 09/05/2024 18:03:23 Result Notes None recorded. Medical Equipment None Reported. Allergies No known drug allergies Medications Name Sig Start Date Stop Date Status Note LastModified by Organization Details LastModified Time amoxicillin 500 mg capsule TAKE 4 CAPSULES BY MOUTH 1 HOUR BEFORE DENTAL APPOINTME NT 09/05 completed Not Available Not Available Not Available methocarbam ol 500 mg tablet TAKE 1 TABLET BY MOUTH EVERY DAY active Not Available Not Available No t Available ketoconazol e 2 % shampoo APPLY TO SCALP LEAVE IN FOR 5 TO 10 MINS THEN RINSE THOROUGHL Y . REPEAT 2 TIMES A WEEK FOR 3 MONTHS active Not Available Not Available No t Available ibuprofen 800 mg tablet TAKE 1 TABLET BY MOUTH THREE TIMES DAILY WITH FOOD NEEDED FOR PAIN active Not Available Not Available No t Available hydrochloro thiazide 50 mg tablet TAKE 1 TABLET BY MOUTH EVERY DAY DIRECTED active Not Available Not Available No t Available cyanocobala min (vit B-12) 1,000 mcg tablet TAKE 1 TABLET BY MOUTH EVERY DAY active Not Available Not Available No t Available amlodipine 5 mg tablet TAKE 1 TABLET BY MOUTH DAILY active Not Available Not Available No t Available potassium chloride ER 20 mEq tablet,exte nded release(par t/cryst) TAKE 1 TABLET BY MOUTH EVERY DAY active Not Available Not Available No t Available methocarbam ol 750 mg tablet TAKE 1 TABLET BY MOUTH TWICE DAILY active Not Available Not Available No t Available trazodone 100 mg tablet TAKE 1/2 TABLET BY MOUTH AT BEDTIME FOR 2 WEEKS THEN TAPER TO 1 TABLET BY MOUTH AT BEDTIME active Not Available Not Available No t Available progesteron e micronized 200 mg capsule TAKE 1 CAPSULE BY MOUTH EVERY NIGHT AT BEDTIME active Not Available Not Available No t Available clobetasol 0.05 % scalp solution APPLY TOPICALLY TO THE SCALP DAILY FOR 2 WEEKS THEN STOP FOR 2 WEEKS. REPEAT NEEDED active Not Available Not Available No t Available olmesartan 20 mg tablet TAKE 1 TABLET BY MOUTH EVERY DAY active Not Available Not Available No t Available rosuvastati n 20 mg tablet TAKE 1 TABLET BY MOUTH EVERY NIGHT AT BEDTIME active Not Available Not Available No t Available chlorhexidi ne gluconate 0.12 % mouthwash SWISH AND SPIT 15 ML BY MOUTH TWICE DAILY active Not Available Not Available No t Available cholecalcif robbie (vitamin D3) 1,250 mcg (50,000 unit) capsule TAKE 1 CAPSULE BY MOUTH 1 TIME A WEEK active Not Available Not Available No t Available diclofenac 1 % topical gel APPLY TOPICALLY TO THE AFFECTED AREA TWICE DAILY active Not Available Not Available No t Available estradiol 10 mcg vaginal tablet APPLY PER VAGINA DAILY FOR 2 WEEKS THEN 2 TIMES A WEEK. active Not Available Not Available No t Available Linzess 145 mcg capsule TAKE 1 CAPSULE BY MOUTH EVERY DAY 30 MINUTES BEFORE FIRST MEAL OF THE DAY active Not Available Not Available No t Available Vitals Date Recorded Oxygen saturation Respiratory rate Body temperature Heart rate Systolic And Diastolic Provider Name and Address Organization Details Last Updated DateTime 5 98 % 16 /min 100 [degF] 90 /min 141/80 mm[Hg] Not Available [facility] - production 5 16:25:15 Social History None recorded. Functional Status None recorded. Mental Status None recorded. Family History Nothing Reported. Medical History No medical history recorded. Gynecological HistoryNo gynecological history recorded. Obstetrics History GPAL:G 0 P 0 0 0 0 Past Encounters Encounter ID Performer Location Encounter Start Date Encounter Closed Date Diagnosis/Indication Diagnosis SNOMED-CT Code Diagnosis ICD10 Code Diagnosis IMO Codes Diagnosis Note [id number] Jovani Starr MD [facility] ED Medical [facility] [address] [place] [address] 09/05/2024 16:25:06 09/05/2024 21:16:53 Irregular heart beat 341783094 I49.9 [id number] Initial presentati on with hand pain but on evaluation patient with fluctuatin g HR from 70's - 120's, with slight ST elevation in lead III and ST depression in V6 with potential prior anterolate ral infaract suggested by pattern in V1/V2. Given irregular rate, no baseline, EKG findings, recommende d going to ED and patient agreeable to this. Health Concerns Section Related Observation LastModified by Organization Detai ls LastModified Time None Recorded Concern Status LastModified by Organization Details LastModified Time None Recorded Advance Directives Directive None Recorded Payers Insurance Date Sequence Insurance Name Policy Number Policy Gamez Covered Member ID Gamez Member ID Guarantor Name 09/06/2024 1 [facility] - DOS ON OR AFTER 2022 - DUAL ELIGIBLE - RESIDENTIAL OPTIONS AND ONE CARE (MEDICARE REPLACEMENT/ADV ANTAGE - HMO) Nidia Alonso [id number] Nidia Alonso Notes Date Note Type Note Provider Name and Address Organization Details Recorded Time 09/05/2024 text/html ROS as noted in the HPI CRC Nurse Triage Notes (Ana Urias - RN): Reason For Request: Patient has left hand swelling and painful for 3 days, weak.Denies: Harvey Flash, circumferential harvey Harvey reported with black tissue to the area Open skin area after a fall with uncontrolled bleeding Abscess/infection with streaking noted, presence of fever or without History of cellulitis, isolated redness noted Fever and chills noted in setting of wound Rash Bites -bugs, spider Abscess Chief Complaints: Extremity SwellingPMH Reviewed at 09/05/2024 - 13:58Allergies Reviewed at 09/05/2024 - 13:58Pain Assessment: Level 8 out of 10Comments: 74 y.o female complains of Extremity Swelling Pt calling for left hand that is swollen and painful.The pt reported that it is not her whole hand but her fingers.She has not had any falls or injuries.the area is not red or warm to the touch.She denies any repetitive movements of the hand.She does not have gout or arthritis.She took 800mg of ibuprofen but did not help .She is at 8-9/10 pain level I provided information on the mobile health provider response time and advised the patient and/or caregiver to monitor reported signs and symptoms. I discussed the warning signs of when to seek emergency care. Presiding Judge Organization Information for Juan Collins Legal Name: [employer] A ddress: [address] [place] [address], USMedical Director: Froylan [facility] No.: [id number] Presiding Judge POC Test Results from Juan Collins Rapid COVID antigen (16:19:03)COVID: -Attachments uploaded as part of this test result can be found under Documents section. Rapid influenza antigen (16:19:04)Flu: -Attachments uploaded as part of this test result can be found under Documents section. ..................... ..................... ..................... ..................... ..................... ..................... ............... Presiding Judge Note From Juan Collins: Was dispatched for a 74 Y/O female [...] was obtained, EKG was forwarded to the [facility]. [facility] was contacted, [facility] suggested sending the PT to the ED for a cardiac workup due to the PT having abnormal EKG. PT understood and agreed. PT denied any chest pain, SOB, dizziness, or nausea. PT did complain of lower back pain along with her thumb pain. [facility] was contacted, [facility] arrived on scene and transported the PT to [facility]. [facility] cleared. [facility] Lab Orders: electrocardiogram: Performed rapid SARS CoV 2 Ag, QL IA, respiratory specimen: Performed rapid flu (A+B): Performed ..................... ..................... ..................... ..................... ..................... ..................... ............... [facility] Consulted: James Starr ..................... ..................... ..................... ..................... ..................... ..................... ............... Disposition: Fulfilled Jovani Starr MD [address] [facility],[address] [facility], [place], [address], CARROLL ROMERO 09/05/2024 19:59:31 OBGyn Episode No OBEpisode recorded.
--- OUTSIDE RECORDS SUMMARY | 2025-01-31 12:33 | XMS_ITS | Patient Health Record ---
Author Organization [facility] Address [address] [address] [place] [address] Care Team Providers Care Chain Hooker Name Role Phone Devon Millard MD Primary Care Provider Unavail able MARCELLA HWANG Unavailable [phone] [place] Gaitan MD Unavailable Unavailab le Allergies No Known Allergies Reason For Referral No Information Social History Tobacco Use: Social History Observation Description Date Details (start date - stop date) Former Smoker NA - NA Tobacco Use/Smoking Question Answer Notes Are you a: former smoker Problems Problem Type SNOMED Code ICD Code Onset Dates Problem Status W/U Status Risk Notes Problem Aneurysm (21439409) Aneurysm (I72.9) Active confirmed Problem Acquired aneurysm of cerebral artery (054511907) Acquired 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
--- OUTSIDE RECORDS SUMMARY | 2025-01-31 12:33 | XMS_ITS | Patient Health Record ---
Author Organization [facility] Address [address] [address] Care Team Providers Care Reporting Process Consultant Name Role Phone Devon Sen MD Primary Care Provider Unavail able Nick Neal Unavailable [phone] [place] SEN MD Unavailable Allergies No Known [...] Risk Notes Problem Diverticular disease of colon (483161500) Diverticulosis large intestine w/o perforation or abscess w/o bleeding (K57.30) Active confirmed Problem Adenomatous polyp of rectum (4768858649681) Adenomatous polyp of rectum (D12.8) Active confirmed Problem Benign neoplasm of colon (67756762) Colon adenoma (D12.6) Active confirmed Problem History of polyp of colon (865126312) 1. Personal history of colon polyps (Z86.010) Active confirmed Plan Of Treatment Pending Test Test Name Order Date Gastrointestinal 08/28/2023 Future Test Test Name Order Date Colonoscopy 06/30/2023 Cardiac Clearance 06/30/2023 Insurance Providers Payer Name Payer Address Payer Phone Subscriber Number Group Number Insured Name Patient Relationship to Insured Coverage Start Date Coverage End Date [facility] MEDICARE REPLACEMET [address] [address] [place], [place] [id number] KAILA CUETO Self - patient is the insured 4 Medical (General) History Medical History History ICD Code High Blood Pressure High Cholesterol Implantable loop recorder Stroke Brain Aneurysm Surgical History Surgery Date(Month/Year) Shoulder replacement (Left) Knee Replacement
--- OUTSIDE RECORDS SUMMARY | 2025-01-31 12:33 | XMS_ITS | Clinical Summary ---
Author Organization [employer] Address [address] [place] [address] Phone Care Team Providers Care Senior Cost Accountant Name Role Phone Daylin Manuel Primary Care Provider [phone] Social History Tobacco Use Types Packs/Day Years Used Date Smoking Tobacco: Never Assessed Comments Unknown Sex and Gender Information Value Date Recorded Sex Assigned at Not on file Legal Sex Female 3:28 PM EST Gender Identity Not on file Sexual Orientation Not on file Plan of Treatment Health Maintenance Due Date Last Done Comments Breast Cancer Screening 1950 Colorectal Cancer Screening: Colonoscopy 1950 DTaP,Tdap,and Td Vaccines (1 - Tdap) 08/27/1971 Pneumococcal Vaccine: 50+ Ye ars (1 of 1 - PCV) 2002 Zoster Vaccines (1 of 2) 2002 Depression Screening 02/14/2024 Falls Risk Assessment 04/10/2024 Hepatitis C Screening 04/10/2024 Medicare Annual Wellness Visit 04/10/2024 Osteoporosis Screening (Bone Density Screening) 04/10/2024 Social Influencers of Health Screening 04/10/2024 COVID-19 Vaccine (1 - 2024-2 6 season) 2024 Influenza Vaccine (#1) 2024 RSV [...] Insurance MEDICAID - [place] MEDICARE Care Teams Senior Cost Accountant Relationship Specialty Start Date End Date Daylin Manuel PA [facility] [place] [address] PCP - General 04/09/24
== END 2025-01-31 11:38 | disposition home or self-care (01) ==
LOC: HO.HMCH 10:48
PROVIDERS: PCP Internal Medicine; Visit Provider Internal Medicine
DX: I51.9 Heart disease, unspecified (principal); I10 Essential (primary) hypertension; E78.00 Pure hypercholesterolemia, unspecified; E04.2 Nontoxic multinodular goiter; M15.0 Primary generalized (osteo)arthritis; M51.360 Other intervertebral disc degeneration, lumbar region with discogenic back pain only; Z86.73 Personal history of transient ischemic attack (TIA), and cerebral infarction without residual deficits; Z86.011 Personal history of benign neoplasm of the brain; K59.00 Constipation, unspecified; E55.9 Vitamin D deficiency, unspecified; G47.00 Insomnia, unspecified; Z87.891 Personal history of nicotine dependence; E66.3 Overweight

== ENCOUNTER → 2025-01-31 10:47 | Outpatient (BNVA) | payer OTHER, SELFPAY | PROVIDERS: PCP Internal Medicine; Visit Provider Internal Medicine | DX: I10 Essential (primary) hypertension (principal); I51.9 Heart disease, unspecified; E78.00 Pure hypercholesterolemia, unspecified; M15.0 Primary generalized (osteo)arthritis; E04.2 Nontoxic multinodular goiter; M51.360 Other intervertebral disc degeneration, lumbar region with discogenic back pain only; K59.00 Constipation, unspecified; G47.00 Insomnia, unspecified; E66.3 Overweight; Z87.891 Personal history of nicotine dependence; Z86.73 Personal history of transient ischemic attack (TIA), and cerebral infarction without residual deficits; Z86.011 Personal history of benign neoplasm of the brain; Z13.31 Encounter for screening for depression; Z13.39 Encounter for screening examination for other mental health and behavioral disorders | CPT/HCPCS: 96127; 99212 ==

== ENCOUNTER 2025-02-05 10:09 | Outpatient (REF) | payer OTHER, SELFPAY ==
--- NOTE | ~2025-02-05 | MR_ITS ---
CLINICAL HISTORY: I67.1 - Cerebral aneurysm, nonruptured MR Angiography head with and without gadolinium Comparison: CT/SR - CT HEAD/BRAIN W IV CON - 08/01/24 10:06 EDT Findings Vertebrobasilar system is normal. Cerebral arteries are patent. 3mm inferiorly projecting aneurysm at the bifurcation of the right MCA, unchanged compared to prior CT. 2mm superiorly projecting aneurysm arising from the anterior communicating artery. This exam is not tailored for evaluation of the brain parenchyma. IMPRESSION: 3 mm inferiorly projecting aneurysm at the bifurcation of the right MCA is unchanged. 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 It is unchanged compared to prior exam as well. This document has been electronically signed by: Cyndie Lang MD on 02/05/2025 23:09:46
--- OUTSIDE RECORDS SUMMARY | 2025-02-05 10:27 | XMS_ITS | Patient Health Record ---
Author Organization [facility] Address [address] [address] [place] [address] Care Team Providers Care Reports Developer Name Role Phone Devon Millard MD Primary Care Provider Unavail able MARCELLA HWANG Unavailable [phone] [place] Gaitan MD Unavailable Unavailab le Allergies No Known Allergies Reason For Referral No Information Social History Tobacco Use: Social History Observation Description Date Details (start date - stop date) Former Smoker NA - NA Tobacco Use/Smoking Question Answer Notes Are you a: former smoker Problems Problem Type SNOMED Code ICD Code Onset Dates Problem Status W/U Status Risk Notes Problem Aneurysm (17158898) Aneurysm (I72.9) Active confirmed Problem Acquired aneurysm of cerebral artery (993568256) Acquired aneurysm of cerebral artery (I67.1) Active confirmed Plan Of Treatment Pending Test Test Name Order Date MRA : Head without contrast 05/18/2023 Insurance Providers Payer Name Payer Address Payer Phone Subscriber Number Group Number Insured Name Patient Relationship to Insured Coverage Start Date Coverage End Date Medicare [employer] Plans [address] [address] [place] [address] [id number] Alonso Nidia Self - patient is the insured Medical (General) History Medical History History ICD Code Brain Aneurysm Fibromyalgia Hypertension I10 Stroke Surgical History Surgery Date(Month/Year) knee surgery Carpal tunnel
--- OUTSIDE RECORDS SUMMARY | 2025-02-05 10:27 | XMS_ITS | Patient Health Record ---
Author Organization [facility] Address [address] [address] Care Team Providers Care Aquatics Lifeguard Name Role Phone Devon Sen MD Primary Care Provider Unavail able Nick Neal Unavailable [phone] [place] SEN MD Unavailable Allergies No Known [...] Risk Notes Problem Diverticular disease of colon (750871717) Diverticulosis large intestine w/o perforation or abscess w/o bleeding (K57.30) Active confirmed Problem Adenomatous polyp of rectum (6773437112812) Adenomatous polyp of rectum (D12.8) Active confirmed Problem Benign neoplasm of colon (01193633) Colon adenoma (D12.6) Active confirmed Problem History of polyp of colon (968513714) 1. Personal history of colon polyps (Z86.010) Active confirmed Plan Of Treatment Pending Test Test Name Order Date Gastrointestinal 08/28/2023 Future Test Test Name Order Date Colonoscopy 06/30/2023 Cardiac Clearance 06/30/2023 Insurance Providers Payer Name Payer Address Payer Phone Subscriber Number Group Number Insured Name Patient Relationship to Insured Coverage Start Date Coverage End Date [facility] [facility] MEDICARE REPLACEMET [address] [address] [place], [place] [id number] KAILA CUETO Self - patient is the insured 4 Medical (General) History Medical History History ICD Code High Blood Pressure High Cholesterol Implantable loop recorder Stroke Brain Aneurysm Surgical History Surgery Date(Month/Year) Shoulder replacement (Left) Knee Replacement
--- OUTSIDE RECORDS SUMMARY | 2025-02-05 10:27 | XMS_ITS | Clinical Summary ---
Author Organization [employer] Address [address] [place] [address] Phone Care Team Providers Care Lamp Developer Name Role Phone Daylin Manuel Primary Care Provider [phone] Social History Tobacco Use Types Packs/Day Years [...] Insurance [place] - [place]ARE Care Teams Lamp Developer Relationship Specialty Start Date End Date Daylin Manuel PA [facility] [place] [address] PCP - General 04/09/24
== END 2025-02-05 10:10 | disposition home or self-care (01) ==
LOC: HO.MRI 10:09
PROVIDERS: PCP Internal Medicine; Visit Provider Psychiatry & Neurology Neurology
DX: I67.1 Cerebral aneurysm, nonruptured (principal)
CPT/HCPCS: 70546; A9585

== ENCOUNTER → 2025-02-05 10:09 | Outpatient (BNV) | payer OTHER, SELFPAY | PROVIDERS: PCP Internal Medicine; Visit Provider Student in an Organized Health Care Education/Training Program | DX: I67.1 Cerebral aneurysm, nonruptured (principal) | CPT/HCPCS: 70546 ==